=== PATIENT | male | born 1970 | race Caucasian/White ===

== ENCOUNTER → 2019-10-19 11:00 | Outpatient (BNVA) | payer OTHER, SELFPAY | PROVIDERS: Family Provider Family Medicine; PCP Family Medicine; Visit Provider Family Medicine | DX: E78.00 Pure hypercholesterolemia, unspecified (principal); E11.9 Type 2 diabetes mellitus without complications; I10 Essential (primary) hypertension; K21.0 Gastro-esophageal reflux disease with esophagitis; S69.91XA Unspecified injury of right wrist, hand and finger(s), initial encounter | CPT/HCPCS: 80053; 80061; 83036 ==

== ENCOUNTER → 2020-06-26 10:13 | Outpatient (BNVA) | payer OTHER, SELFPAY | PROVIDERS: Family Provider Family Medicine; PCP Family Medicine; Visit Provider Emergency Medicine | DX: R68.89 Other general symptoms and signs (principal); R11.0 Nausea; Z20.828 Contact with and (suspected) exposure to other viral communicable diseases | CPT/HCPCS: 87400; 87635 ==

== ENCOUNTER → 2020-06-28 15:19 | Outpatient (BNVA) | payer OTHER, SELFPAY | PROVIDERS: Family Provider Family Medicine; PCP Family Medicine; Visit Provider Emergency Medicine | DX: R68.89 Other general symptoms and signs (principal); R06.02 Shortness of breath; Z20.828 Contact with and (suspected) exposure to other viral communicable diseases; I51.7 Cardiomegaly | CPT/HCPCS: 71046; 87635 ==

== ENCOUNTER → 2020-07-09 17:56 | Outpatient (BNVA) | payer OTHER, SELFPAY | PROVIDERS: Family Provider Family Medicine; PCP Family Medicine; Visit Provider Family Medicine | DX: I10 Essential (primary) hypertension (principal); J44.9 Chronic obstructive pulmonary disease, unspecified; E11.9 Type 2 diabetes mellitus without complications; K70.9 Alcoholic liver disease, unspecified; E78.00 Pure hypercholesterolemia, unspecified | CPT/HCPCS: 80053; 80061; 83036; 85025; 86705; 86706; 86803; 87340 ==

== ENCOUNTER → 2020-07-14 15:32 | Outpatient (BNVA) | payer OTHER, SELFPAY | PROVIDERS: PCP Family Medicine; Referring Provider Family Medicine; Visit Provider Emergency Medicine | DX: E11.9 Type 2 diabetes mellitus without complications (principal) | CPT/HCPCS: 83036 ==

== ENCOUNTER 2020-07-15 15:01 | Outpatient (CLI) | payer OTHER, SELFPAY ==
--- NOTE | 2020-07-15 15:00 | USCV_ITS ---
Tonny Miller Jr Age: 49 Gender: M : 1970 Exam Date: 07/15/2020 15:32 Ordering Phys: Marques Portillo Technologist: Mireya Reyes Exam Location: [facility] – [place] Indication: CARDIOMEGALY BP: 131 / 78 HR: 110 Rhythm: Sinus Technical Quality: Adequate MEASUREMENTS (Male / Female) Normal Values 2D ECHO LV Diastolic Diameter PLAX 4.8 cm 4.2 - 5.9 / 3.9 - 5.3 cm LV Systolic Diameter PLAX 3.1 cm LV Chamber Size 2.9 cm IVS Diastolic Thickness 0.9 cm 0.6 - 1.0 / 0.6 - 0.9 cm IVS Systolic Thickness 1.5 cm LVPW Diastolic Thickness 1.6 cm 0.6 - 1.0 / 0.6 - 0.9 cm LVPW Systolic Thickness 1.8 cm RV Chamber Size 2.2 cm LVOT Diameter 2.0 cm LV Ejection Fraction 2D Teich 63.7 % LV Ejection Fraction MOD 2C 53.0 % LV Ejection Fraction 2C AL 58.7 % LA Diameter 3.6 cm LA Width 3.8 cm LA Height 3.2 cm RA Width 3.6 cm RA Height 3.7 cm Aorta at Sinotubular Diameter 4.2 cm M-MODE LV Diastolic Diameter MM 4.6 cm 4.2 - 5.9 / 3.9 - 5.3 cm LV Systolic Diameter MM 2.8 cm LV Ejection Fraction MM Teich 70.6 % IVS Diastolic Thickness MM 1.3 cm 0.6 - 1.0 / 0.6 - 0.9 cm IVS Systolic Thickness MM 1.6 cm LVPW Diastolic Thickness MM 1.2 cm 0.6 - 1.0 / 0.6 - 0.9 cm LVPW Systolic Thickness MM 1.9 cm RV Diastolic Diameter MM 1.6 cm Aortic Annulus Diameter 4.4 cm LA Ao Ratio MM 1.2 MV E Point Septal Separation 0.3 cm DOPPLER AV Peak Velocity 218.0 cm/s LVOT Peak Velocity 125.0 cm/s AV Area Cont Eq vti 2.1 cm squared AV Area Cont Eq pk 1.8 cm squared MV Area PHT 5.0 cm squared Mitral E to A Ratio 1.3 MV E' Velocity 82.0 cm/s Mitral E to MV E' Ratio 9.7 Mitral E to LV E' Lateral Ratio 9.8 Mitral E to LV E' Septal Ratio 9.6 TR Peak Velocity 194.1 cm/s TR Peak Gradient 15.1 mmHg TR Mean Velocity 140.8 cm/s TR Mean Gradient 9.9 mmHg TR Velocity Time Integral 45.8 cm TV Peak E Velocity 94.0 cm/s Right Atrial Pressure 3.0 mmHg Pulmonary Artery Systolic Pressu 18.1 mmHg PV Peak Velocity 129.7 cm/s RV Acceleration Time 0.1 s RV Ejection Time 0.3 s RV AcT/ET 0.5 FINDINGS Left Ventricle Normal left ventricular cavity size. Normal left ventricular systolic function. Left ventricular ejection fraction is estimated at 65 %. Normal diastolic function. Right Ventricle The right ventricle is normal in size and function. Right Atrium The right atrium is normal in size. Left Atrium The left atrium is normal in size. Mitral Valve Moderately thickened mitral valve. No mitral valve stenosis. Mild mitral valve regurgitation. Aortic Valve Mild aortic valve calcification. No aortic valve stenosis. No aortic valve regurgitation. Tricuspid Valve Tricuspid valve sclerosis. Mild tricuspid valve regurgitation. Pulmonic Valve Structurally normal pulmonic valve without significant stenosis. There is no pulmonic regurgitation. Pericardium Normal pericardium without effusion. Aorta Normal ascending aorta dimension. CONCLUSIONS 1-Normal left ventricular cavity size. Normal left ventricular systolic function. Left ventricular ejection fraction is estimated at 65 %. Normal diastolic function. 2-Moderately thickened mitral valve. No mitral valve stenosis. Mild mitral valve regurgitation. 3-Mild aortic valve calcification. No aortic valve stenosis. No aortic valve regurgitation. 4-Tricuspid valve sclerosis. Mild tricuspid valve regurgitation. 8-Kbpy-ttxke pleural effusion noted 6-There are no prior echocardiogram studies to compare. Yeison Cook MD (Electronically Signed) Final Date: 15 July 2020 18:31 S
== END 2020-07-15 15:02 | disposition home or self-care (01) ==
LOC: US 15:03
PROVIDERS: PCP Family Medicine; Visit Provider Emergency Medicine
DX: I08.3 Combined rheumatic disorders of mitral, aortic and tricuspid valves
CPT/HCPCS: 93306

== ENCOUNTER 2020-07-22 10:49 | Outpatient (CLI) | payer OTHER, SELFPAY ==
--- NOTE | 2020-07-22 11:00 | US_ITS ---
WS: [id number] ULTRASOUND ABDOMEN CLINICAL INFORMATION: K70.9 - Alcoholic liver disease, unspecified COMPARISON: None. FINDINGS: Very Technically limited examination. Liver Size: Enlarged Craniocaudal length: 20.5 cm. Echogenicity: Coarse Surface nodularity: None. Mass (size and location): None. Bile ducts Intrahepatic ducts: Normal. Common bile duct diameter: 0.3 cm. Gallbladder Normal. Gallstones: None. Gallbladder sludge: None. Gallbladder wall thickening: None. Pericholecystic fluid: None. Sonographic Suh sign: Absent. Pancreas Obscured by bowel gas Spleen Splenomegaly: Mild splenomegaly Craniocaudal length: 14.6 cm. Right kidney: Normal. Hydronephrosis: None. 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 Hydronephrosis: None. Size: 11.1 cm x 4.3 cm x 6.2 cm. Abdominal aorta and IVC Visualized portions are normal. Ascites: None. US/US abdomen complete* [id number] IMPRESSION: Limited technically difficult examination. 1. Hepatomegaly with diffuse fatty infiltration of the liver. 2. Splenomegaly measuring 14.5 CM. 3. No hydronephrosis in either kidney. 4. Echogenic lesion left kidney measuring 2.1 cm likely represents angiomyolip delio. Less likely this represents a nonobstructing calculus. 5. Normal gallbladder and common bile duct.
== END 2020-07-22 10:50 | disposition home or self-care (01) ==
PROVIDERS: PCP Family Medicine; Visit Provider Family Medicine
DX: K70.9 Alcoholic liver disease, unspecified (principal); K70.0 Alcoholic fatty liver; R16.2 Hepatomegaly with splenomegaly, not elsewhere classified; N28.9 Disorder of kidney and ureter, unspecified
CPT/HCPCS: 76700

== ENCOUNTER 2020-07-27 15:45 | Inpatient (IN) | payer OTHER, SELFPAY ==
[2020-07-27] VITALS (14 sets, daily range): BP systolic 106–120; BP diastolic 58–76; PULSE 90–111; RESP 17–26; TEMP 36.8–37.6; O2SAT 96–100; BMI 33.2
--- NOTE | 2020-07-27 16:08 | XRR_ITS ---
PROCEDURE INFORMATION: Exam: XR Abdomen, 1 View Exam date and time: 07/27/2020 4:44 PM Age: 49 years old Clinical indication: Abdominal pain; Prior surgery; Surgery type: Hernia TECHNIQUE: Imaging protocol: XR of the abdomen. Views: Frontal supine view of the abdomen. 1 View. COMPARISON: US abdomen complete* [id number] 07/22/2020 11:02 AM FINDINGS: Gastrointestinal tract: Suspected mucosal thickening of small bowel loops. No convincing evidence of bowel obstruction or perforation. Intraperitoneal space: Ascites suspected. Bones/joints: Mild diffuse spondyloarthropathy of spine. XR/XR KUB portable [id number] IMPRESSION: 1. Ascites. 2. Nonspecific mucosal fold thickening of small bowel loops.
--- NOTE | 2020-07-27 16:10 | ECG_ITS ---
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 Measurements Intervals [place] Rate: 97 P: 39 ND: 156 QRS: 0 QRSD: 98 T: -8 QT: 374 QTc: 477 Interpretive Statements SINUS RHYTHM NONSPECIFIC ST & T-WAVE ABNORMALITY No previous ECG available for comparison Electronically Signed On 07-27-2020 19:26:46 MANAGER WEB by Elsie Lloyd M.D. [id number]
--- NOTE | 2020-07-27 16:11 | W.ED.GENADLT ---
Documented by User: Mendoza Vinson MD 07/27/20 17:49 HPI - General Adult General: Chief complaint: General Medical Stated complaint: REALLY LOW BP, R SIDE ACHES/PAINS Time Seen by Provider: 07/27/20 16:04 Source: patient, family, RN notes reviewed and old records reviewed Mode of arrival: ambulatory Limitations: no limitations History of Present Illness: HPI narrative: This patient is a 49-year-old male presents to the emergency department with complaint of right upper quadrant abdominal pain. Been ongoing issue from time to time has recently had an evaluation by cardiology approximately 7 days ago had echocardiogram outpatient was negative for any acute findings. Patient also had a abdominal ultrasound that was negative for any acute findings. Other than fatty liver disease. Patient has a known history of liver disease related to alcohol chronically. Patient states he drinks a pint of fireball every couple of days. But this is cut way down from his previous alcohol consumption. Patient does appear to be slightly jaundiced and this also is consistent with his history. Patient's complaint of right upper quadrant abdominal pain appears to be chronic. Patient does have a ventral abdominal hernia that is chronic also. Will do medical evaluation treat as needed. Onset (ago): day(s) Severity: moderate Quality: aching Pain Consistency: constant Relieving factors: none Exacerbating factors: none Associated symptoms: Deny chest pain, dyspnea, malaise, nausea, rash, palpitations or vomiting Review of Systems General: Reports: 10 or more systems reviewed and unremarkable except in HPI and below Const: Denies: fever(s), chills, body aches, change in appetite, change in weight, fatigue or malaise Eyes: Denies: change in vision or blurry vision ENMT: Denies: throat pain, uvular edema or enlarged tonsils Card: Denies: chest pain, palpitations, irregular heart rhythm, swelling of feet/ankles or lightheadedness Resp: Denies: dyspnea, productive cough, non-productive cough, wheezing, stridor or pain on inspiration GI: Reports: abdominal pain; Denies: nausea, vomiting, hematemesis, coffee ground emesis, dysphagia or diarrhea : Denies: flank pain, difficulty urinating or dysuria Skin/Breast: Denies: rash PFSH ED PFSH: Medical History Cardiomegaly GERD (gastroesophageal reflux disease) History of alcoholism Hypercholesteremia Hypertension Type 2 diabetes mellitus Social History Smoking and tobacco status: current every day smoker smokeless tobacco Smokeless tobacco user: chewing tobacco Smokeless tobacco details: 0.25 CAN PER DAY Quit status (tobacco): not considering quitting Second hand smoke exposure: No Alcohol intake: current Alcohol intake frequency: 0-2 Drinks per Day History of recent travel: No Current gender identity: Male Physical Exam Narrative: EXAM NARRATIVE: Patient has known liver disease presents with abdominal pain but does have chronic abdominal pain and GERD. Patient states he drinks fireball daily. Patient has recently had abdominal ultrasound and an echocardiogram both showed no acute findings other than his liver disease issues. Patient appears to be slightly jaundiced this is also chronic and noted in his medical records. Const: COMMON NORMALS: no acute distress, no limitations, healthy appearing, alert and well nourished HENMT: COMMON NORMALS: normocephalic, atraumatic, hearing grossly normal bilaterally and external ears normal HEAD & SCALP: normocephalic and atraumatic EXTERNAL EAR: Yes external ears normal THROAT: no uvular edema Eye: SCLERA: scleral abnormal (Slightly icteric.) Laterality of scleral abnormality: positive bilateral Neck/C-Spine: COMMON NORMALS: no JVD Chest: COMMONS NORMALS: normal inspection of the chest, normal palpation of entire chest wall, normal inspection of the breasts and normal palpation of the breasts Breast/axilla inspection: Yes normal inspection of the breasts BREAST/AXILLA PALPATION: Yes normal palpation of the breasts Resp: COMMON NORMALS: normal respiratory effort, No retractions, No use of accessory muscles and clear to auscultation bilaterally AUSCULTATION: clear to auscultation bilaterally Cardio: COMMON NORMALS: no JVD, regular rate and regular rhythm RATE: regular rate RHYTHM: regular rhythm GI: COMMON NORMALS: Soft to palpation INSPECTION: Yes central obesity and Yes visible herniation PALPATION: Yes Soft to palpation, Yes Tenderness to palpation present (GI) (Mildly tender right upper quadrant) Details: RUQ and Yes Hepatomegaly present PERCUSSION: normal to percussion Neuro: SENSORIUM/ORIENTATION: Yes alert Course ED course: Patient presented to the emergency department with complaint of right upper quadrant pain. Had recent cardiac echocardiogram negative for acute findings and gallbladder ultrasound negative for any acute findings other than his chronic liver issues. Medical screening exam was performed showed the patient has hemoglobin of 4.5 and hematocrit of 16.7. Patient is described weakness. Patient states he has some dark stools over the past week but has had no dark stools in the past couple days patient does have light jaundice but this is chronic for the patient due to his chronic liver disease related to alcoholism patient does drink alcohol daily and has for a long time. Reevaluation(s): Reevaluation #1: Patient appears to back have anemia due to blood loss. Concerning for lower GI bleed. Patient will need blood transfusion due to H&H of 4.5 and 16.7. Patient is agreeable for admission. Time: 17:44 Consultations: Consultation #1: I did discuss at length with Dr. Arnold we discussed the patient's chart. She will see patient around initial orders Time: 17:44 Vital Signs: Vital signs: Vital Signs Temperature 99.5 F 07/27/20 19:30 Pulse Rate 93 07/27/20 19:30 Respiratory Rate 23 H 07/27/20 19:30 Blood Pressure 110/65 07/27/20 19:30 Pulse Oximetry 96 07/27/20 19:30 MDM - General Adult Medical Records: Attestation: I reviewed the patient's medical records. Lab Data: Attestation: I reviewed the patient's lab results. Labs: Lab Results 07/27/20 07/27/20 07/27/20 Range/Units 16:20 16:20 16:20 WBC 5.7 (4.0-10.0) 10^3/ uL RBC 2.24 L (4.1-5.3) 10^6/u L Hgb 4.5 L* (11.7-16.6) g/dL Hct 16.7 L* (42.0-52.0) % MCV 74.6 L (80-94) fL MCH 20.1 L (28.0-34.0) pg MCHC 26.9 L (30.0-36.0) g/dL RDW 22.5 H (12.1-15.1) % Plt Count 314 (130-400) 10^3/c mm MPV 10.8 H (7.4-10.4) fL Neut % (Auto) 68.0 % Lymph % (Auto) 21.0 % [place] % (Auto) 8.9 % Eos % (Auto) 1.2 % Baso % (Auto) 0.5 % Neut # (Auto) 3.88 (1.8-7.7) 10^3/u L Lymph # (Auto) 1.2 (0.8-4.8) 10^3/u L [place] # (Auto) 0.5 (0.2-0.9) 10^3/u L Eos # (Auto) 0.1 (0.0-0.8) 10^3/u L Baso # (Auto) 0.0 (0.0-0.1) 10^3/u L Nucleated RBC % (a uto) 0 % Nucleated RBCs # 0.0 /100WBC PT 18.50 H (12.1-14.9) SECO NDS INR 1.49 H (0.8-1.2) APTT 37.0 H (23.9-36.7) SECO NDS Sodium 136 (136-145) mmol/L Potassium 2.4 L* (3.5-5.1) mmol/L Chloride 95 L (98-107) mmol/L Carbon Dioxide 31 H (22-29) mmol/L Anion Gap 12.4 (5-19) BUN 11 (6-20) mg/dL Creatinine 0.8 (0.7-1.2) mg/dL GFR Calculation 102.7 (90-130) mL/min Glucose 158 H (65-115) mg/dL Calculated Osmolal ity 285 (285-295) mOsm/k g Calcium 7.8 L (8.5-10.5) mg/dL Magnesium 1.9 (1.7-2.3) mg/dL Total Bilirubin 1.5 H (0.15-1.2) mg/dL AST 44 H (0-40) U/L ALT 27 (0-41) U/L Alkaline Phosphata se 308 H (40-130) IU/L Troponin T Gen 5 n g/L (0-15) ng/L C-Reactive Protein 22.7 H (0.0-4.9) mg/L Total Protein 6.0 L (6.6-8.7) g/dL Albumin 3.4 L (3.5-5.2) g/dL Globulin 2.6 (1.3-4.6) g/dL Lipase 70 H (13-60) U/L Urine Color (Yellow) Urine Appearance (CLEAR) Urine pH (5-7) Ur Specific Gravit y (1.005-1.030) Urine Protein (Negative) Urine Glucose (UA) (Normal) Urine Ketones (Negative) Urine Blood (Negative) Urine Nitrate (Negative) Urine Bilirubin (Negative) Urine Urobilinogen (Negative) mg/dL Ur Leukocyte Yashira ase (Negative) Salicylates < 0.3 L (3-10) mg/dL Urine Opiates Scre en (Negative) ng/mL Acetaminophen < 5.0 L (10-30) ug/mL Ur Barbiturates Sc reen (Negative) ng/mL Ur Phencyclidine S crn (Negative) ng/mL Ur Amphetamines Sc reen (Negative) ng/mL U Benzodiazepines Scrn (Negative) ng/mL Urine Cocaine Scre en (Negative) ng/mL U Marijuana (THC) Screen (Negative) ng/mL Ethyl Alcohol < 10 (0-10) mg/dL Blood Type Rho(D) Type Antibody Screen Crossmatch 07/27/20 07/27/20 07/27/20 Range/Units 16:20 16:20 16:20 WBC (4.0-10.0) 10^3/ uL RBC (4.1-5.3) 10^6/u L Hgb (11.7-16.6) g/dL Hct (42.0-52.0) % MCV (80-94) fL MCH (28.0-34.0) pg MCHC (30.0-36.0) g/dL RDW (12.1-15.1) % Plt Count (130-400) 10^3/c mm MPV (7.4-10.4) fL Neut % (Auto) % Lymph % (Auto) % [place] % (Auto) % Eos % (Auto) % Baso % (Auto) % Neut # (Auto) (1.8-7.7) 10^3/u L Lymph # (Auto) (0.8-4.8) 10^3/u L [place] # (Auto) (0.2-0.9) 10^3/u L Eos # (Auto) (0.0-0.8) 10^3/u L Baso # (Auto) (0.0-0.1) 10^3/u L Nucleated RBC % (a uto) % Nucleated RBCs # /100WBC PT (12.1-14.9) SECO NDS INR (0.8-1.2) APTT (23.9-36.7) SECO NDS Sodium (136-145) mmol/L Potassium (3.5-5.1) mmol/L Chloride (98-107) mmol/L Carbon Dioxide (22-29) mmol/L Anion Gap (5-19) BUN (6-20) mg/dL Creatinine (0.7-1.2) mg/dL GFR Calculation (90-130) mL/min Glucose (65-115) mg/dL Calculated Osmolal ity (285-295) mOsm/k g Calcium (8.5-10.5) mg/dL Magnesium (1.7-2.3) mg/dL Total Bilirubin (0.15-1.2) mg/dL AST (0-40) U/L ALT (0-41) U/L Alkaline Phosphata se (40-130) IU/L Troponin T Gen 5 n g/L 12 (0-15) ng/L C-Reactive Protein (0.0-4.9) mg/L Total Protein (6.6-8.7) g/dL Albumin (3.5-5.2) g/dL Globulin (1.3-4.6) g/dL Lipase (13-60) U/L Urine Color Yellow (Yellow) Urine Appearance Clear (CLEAR) Urine pH 6 (5-7) Ur Specific Gravit y 1.010 (1.005-1.030) Urine Protein Neg (Negative) Urine Glucose (UA) Norm (Normal) Urine Ketones Negative (Negative) Urine Blood Neg (Negative) Urine Nitrate Negative (Negative) Urine Bilirubin 1+ H (Negative) Urine Urobilinogen 1 H (Negative) mg/dL Ur Leukocyte Yashira ase Negative (Negative) Salicylates (3-10) mg/dL Urine Opiates Scre en Negative (Negative) ng/mL Acetaminophen (10-30) ug/mL Ur Barbiturates Sc reen Negative (Negative) ng/mL Ur Phencyclidine S crn Negative (Negative) ng/mL Ur Amphetamines Sc reen Negative (Negative) ng/mL U Benzodiazepines Scrn Negative (Negative) ng/mL Urine Cocaine Scre en Negative (Negative) ng/mL U Marijuana (THC) Screen Negative (Negative) ng/mL Ethyl Alcohol (0-10) mg/dL Blood Type Rho(D) Type Antibody Screen Crossmatch 07/27/20 Range/Units 17:45 WBC (4.0-10.0) 10^3/ uL RBC (4.1-5.3) 10^6/u L Hgb (11.7-16.6) g/dL Hct (42.0-52.0) % MCV (80-94) fL MCH (28.0-34.0) pg MCHC (30.0-36.0) g/dL RDW (12.1-15.1) % Plt Count (130-400) 10^3/c mm MPV (7.4-10.4) fL Neut % (Auto) % Lymph % (Auto) % [place] % (Auto) % Eos % (Auto) % Baso % (Auto) % Neut # (Auto) (1.8-7.7) 10^3/u L Lymph # (Auto) (0.8-4.8) 10^3/u L [place] # (Auto) (0.2-0.9) 10^3/u L Eos # (Auto) (0.0-0.8) 10^3/u L Baso # (Auto) (0.0-0.1) 10^3/u L Nucleated RBC % (a uto) % Nucleated RBCs # /100WBC PT (12.1-14.9) SECO NDS INR (0.8-1.2) APTT (23.9-36.7) SECO NDS Sodium (136-145) mmol/L Potassium (3.5-5.1) mmol/L Chloride (98-107) mmol/L Carbon Dioxide (22-29) mmol/L Anion Gap (5-19) BUN (6-20) mg/dL Creatinine (0.7-1.2) mg/dL GFR Calculation (90-130) mL/min Glucose (65-115) mg/dL Calculated Osmolal ity (285-295) mOsm/k g Calcium (8.5-10.5) mg/dL Magnesium (1.7-2.3) mg/dL Total Bilirubin (0.15-1.2) mg/dL AST (0-40) U/L ALT (0-41) U/L Alkaline Phosphata se (40-130) IU/L Troponin T Gen 5 n g/L (0-15) ng/L C-Reactive Protein (0.0-4.9) mg/L Total Protein (6.6-8.7) g/dL Albumin (3.5-5.2) g/dL Globulin (1.3-4.6) g/dL Lipase (13-60) U/L Urine Color (Yellow) Urine Appearance (CLEAR) Urine pH (5-7) Ur Specific Gravit y (1.005-1.030) Urine Protein (Negative) Urine Glucose (UA) (Normal) Urine Ketones (Negative) Urine Blood (Negative) Urine Nitrate (Negative) Urine Bilirubin (Negative) Urine Urobilinogen (Negative) mg/dL Ur Leukocyte Yashira ase (Negative) Salicylates (3-10) mg/dL Urine Opiates Scre en (Negative) ng/mL Acetaminophen (10-30) ug/mL Ur Barbiturates Sc reen (Negative) ng/mL Ur Phencyclidine S crn (Negative) ng/mL Ur Amphetamines Sc reen (Negative) ng/mL U Benzodiazepines Scrn (Negative) ng/mL Urine Cocaine Scre en (Negative) ng/mL U Marijuana (THC) Screen (Negative) ng/mL Ethyl Alcohol (0-10) mg/dL Blood Type O Positive Rho(D) Type Positive Antibody Screen Negative Crossmatch See Detail EKG Data^: EKG 1: Attestation: I personally reviewed and interpreted this EKG as follows: EKG interpretation date: 07/27/20 EKG interpretation time: 17:07 Prior EKG tracings: available for review Interpretation: Sinus rhythm nonspecific ST changes otherwise normal EKG Computer generated interpretation: KUB X-Ray 07/27/20 16:08 IMPRESSION: 1. Ascites. 2. Nonspecific mucosal fold thickening of small bowel loops. Abdomen/Pelvis CT 07/27/20 18:04 IMPRESSION: 1. Sequela of liver cirrhosis which includes moderate ascites volume. 2. Bowel wall thickening changes are noted and nonspecific, most likely related to underlying fluid overload status. Radiation Dose CTDIVOL = (mGy): DLP = 1592.18 (mGy-cm) Discharge Plan Discharge Patient Disposition: Admitted As Inpatient Admit Provider: Rigoberto Basurto Clinical Impression: Acute GI bleeding, Anemia due to acute blood loss, Chronic alcoholic liver disease, Acute hypokalemia, Alcoholism, chronic Condition: Stable Coding Level of Care Code ED Design/Animation Instructor for Chg Fwd Exam Comprehensive Documented by User: Yudelka Castrejon MD 07/27/20 19:52 HPI - General Adult General: Chief complaint: General Medical Stated complaint: REALLY LOW BP, R SIDE ACHES/PAINS Time Seen by Provider: 07/27/20 16:04 PFS ED PFSH: Medical History Cardiomegaly GERD (gastroesophageal reflux disease) History of alcoholism Hypercholesteremia Hypertension Type 2 diabetes mellitus Social History Smoking and tobacco status: current every day smoker smokeless tobacco Smokeless tobacco user: chewing tobacco Smokeless tobacco details: 0.25 CAN PER DAY Quit status (tobacco): not considering quitting Second hand smoke exposure: No Alcohol intake: current Alcohol intake frequency: 0-2 Drinks per Day History of recent travel: No Current gender identity: Male Course Vital Signs: Vital signs: Vital Signs Temperature 99.5 F 07/27/20 19:30 Pulse Rate 93 07/27/20 19:30 Respiratory Rate 23 H 07/27/20 19:30 Blood Pressure 110/65 07/27/20 19:30 Pulse Oximetry 96 07/27/20 19:30 MDM - General Adult MDM Narrative: Medical decision making narrative: Patient presents with anemia along with ascites likely from cirrhosis from his alcoholism. He has no signs of any active bleeding I believe he is got anemic over period of time. Patient's blood work here shows that he is hypokalemic as well. Patient's blood pressures been stable. Will admit and transfuse. I spoke to hospitalist. Lab Data: Labs: Lab Results 07/27/20 07/27/20 07/27/20 Range/Units 16:20 16:20 16:20 WBC 5.7 (4.0-10.0) 10^3/ uL RBC 2.24 L (4.1-5.3) 10^6/u L Hgb 4.5 L* (11.7-16.6) g/dL Hct 16.7 L* (42.0-52.0) % MCV 74.6 L (80-94) fL MCH 20.1 L (28.0-34.0) pg MCHC 26.9 L (30.0-36.0) g/dL RDW 22.5 H (12.1-15.1) % Plt Count 314 (130-400) 10^3/c mm MPV 10.8 H (7.4-10.4) fL Neut % (Auto) 68.0 % Lymph % (Auto) 21.0 % [place] % (Auto) 8.9 % Eos % (Auto) 1.2 % Baso % (Auto) 0.5 % Neut # (Auto) 3.88 (1.8-7.7) 10^3/u L Lymph # (Auto) 1.2 (0.8-4.8) 10^3/u L [place] # (Auto) 0.5 (0.2-0.9) 10^3/u L Eos # (Auto) 0.1 (0.0-0.8) 10^3/u L Baso # (Auto) 0.0 (0.0-0.1) 10^3/u L Nucleated RBC % (a uto) 0 % Nucleated RBCs # 0.0 /100WBC PT 18.50 H (12.1-14.9) SECO NDS INR 1.49 H (0.8-1.2) APTT 37.0 H (23.9-36.7) SECO NDS Sodium 136 (136-145) mmol/L Potassium 2.4 L* (3.5-5.1) mmol/L Chloride 95 L (98-107) mmol/L Carbon Dioxide 31 H (22-29) mmol/L Anion Gap 12.4 (5-19) BUN 11 (6-20) mg/dL Creatinine 0.8 (0.7-1.2) mg/dL GFR Calculation 102.7 (90-130) mL/min Glucose 158 H (65-115) mg/dL Calculated Osmolal ity 285 (285-295) mOsm/k g Calcium 7.8 L (8.5-10.5) mg/dL Magnesium 1.9 (1.7-2.3) mg/dL Total Bilirubin 1.5 H (0.15-1.2) mg/dL AST 44 H (0-40) U/L ALT 27 (0-41) U/L Alkaline Phosphata se 308 H (40-130) IU/L Troponin T Gen 5 n g/L (0-15) ng/L C-Reactive Protein 22.7 H (0.0-4.9) mg/L Total Protein 6.0 L (6.6-8.7) g/dL Albumin 3.4 L (3.5-5.2) g/dL Globulin 2.6 (1.3-4.6) g/dL Lipase 70 H (13-60) U/L Urine Color (Yellow) Urine Appearance (CLEAR) Urine pH (5-7) Ur Specific Gravit y (1.005-1.030) Urine Protein (Negative) Urine Glucose (UA) (Normal) Urine Ketones (Negative) Urine Blood (Negative) Urine Nitrate (Negative) Urine Bilirubin (Negative) Urine Urobilinogen (Negative) mg/dL Ur Leukocyte Yashira ase (Negative) Salicylates < 0.3 L (3-10) mg/dL Urine Opiates Scre en (Negative) ng/mL Acetaminophen < 5.0 L (10-30) ug/mL Ur Barbiturates Sc reen (Negative) ng/mL Ur Phencyclidine S crn (Negative) ng/mL Ur Amphetamines Sc reen (Negative) ng/mL U Benzodiazepines Scrn (Negative) ng/mL Urine Cocaine Scre en (Negative) ng/mL U Marijuana (THC) Screen (Negative) ng/mL Ethyl Alcohol < 10 (0-10) mg/dL Blood Type Rho(D) Type Antibody Screen Crossmatch 07/27/20 07/27/20 07/27/20 Range/Units 16:20 16:20 16:20 WBC (4.0-10.0) 10^3/ uL RBC (4.1-5.3) 10^6/u L Hgb (11.7-16.6) g/dL Hct (42.0-52.0) % MCV (80-94) fL MCH (28.0-34.0) pg MCHC (30.0-36.0) g/dL RDW (12.1-15.1) % Plt Count (130-400) 10^3/c mm MPV (7.4-10.4) fL Neut % (Auto) % Lymph % (Auto) % [place] % (Auto) % Eos % (Auto) % Baso % (Auto) % Neut # (Auto) (1.8-7.7) 10^3/u L Lymph # (Auto) (0.8-4.8) 10^3/u L [place] # (Auto) (0.2-0.9) 10^3/u L Eos # (Auto) (0.0-0.8) 10^3/u L Baso # (Auto) (0.0-0.1) 10^3/u L Nucleated RBC % (a uto) % Nucleated RBCs # /100WBC PT (12.1-14.9) SECO NDS INR (0.8-1.2) APTT (23.9-36.7) SECO NDS Sodium (136-145) mmol/L Potassium (3.5-5.1) mmol/L Chloride (98-107) mmol/L Carbon Dioxide (22-29) mmol/L Anion Gap (5-19) BUN (6-20) mg/dL Creatinine (0.7-1.2) mg/dL GFR Calculation (90-130) mL/min Glucose (65-115) mg/dL Calculated Osmolal ity (285-295) mOsm/k g Calcium (8.5-10.5) mg/dL Magnesium (1.7-2.3) mg/dL Total Bilirubin (0.15-1.2) mg/dL AST (0-40) U/L ALT (0-41) U/L Alkaline Phosphata se (40-130) IU/L Troponin T Gen 5 n g/L 12 (0-15) ng/L C-Reactive Protein (0.0-4.9) mg/L Total Protein (6.6-8.7) g/dL Albumin (3.5-5.2) g/dL Globulin (1.3-4.6) g/dL Lipase (13-60) U/L Urine Color Yellow (Yellow) Urine Appearance Clear (CLEAR) Urine pH 6 (5-7) Ur Specific Gravit y 1.010 (1.005-1.030) Urine Protein Neg (Negative) Urine Glucose (UA) Norm (Normal) Urine Ketones Negative (Negative) Urine Blood Neg (Negative) Urine Nitrate Negative (Negative) Urine Bilirubin 1+ H (Negative) Urine Urobilinogen 1 H (Negative) mg/dL Ur Leukocyte Yashira ase Negative (Negative) Salicylates (3-10) mg/dL Urine Opiates Scre en Negative (Negative) ng/mL Acetaminophen (10-30) ug/mL Ur Barbiturates Sc reen Negative (Negative) ng/mL Ur Phencyclidine S crn Negative (Negative) ng/mL Ur Amphetamines Sc reen Negative (Negative) ng/mL U Benzodiazepines Scrn Negative (Negative) ng/mL Urine Cocaine Scre en Negative (Negative) ng/mL U Marijuana (THC) Screen Negative (Negative) ng/mL Ethyl Alcohol (0-10) mg/dL Blood Type Rho(D) Type Antibody Screen Crossmatch 07/27/20 Range/Units 17:45 WBC (4.0-10.0) 10^3/ uL RBC (4.1-5.3) 10^6/u L Hgb (11.7-16.6) g/dL Hct (42.0-52.0) % MCV (80-94) fL MCH (28.0-34.0) pg MCHC (30.0-36.0) g/dL RDW (12.1-15.1) % Plt Count (130-400) 10^3/c mm MPV (7.4-10.4) fL Neut % (Auto) % Lymph % (Auto) % [place] % (Auto) % Eos % (Auto) % Baso % (Auto) % Neut # (Auto) (1.8-7.7) 10^3/u L Lymph # (Auto) (0.8-4.8) 10^3/u L [place] # (Auto) (0.2-0.9) 10^3/u L Eos # (Auto) (0.0-0.8) 10^3/u L Baso # (Auto) (0.0-0.1) 10^3/u L Nucleated RBC % (a uto) % Nucleated RBCs # /100WBC PT (12.1-14.9) SECO NDS INR (0.8-1.2) APTT (23.9-36.7) SECO NDS Sodium (136-145) mmol/L Potassium (3.5-5.1) mmol/L Chloride (98-107) mmol/L Carbon Dioxide (22-29) mmol/L Anion Gap (5-19) BUN (6-20) mg/dL Creatinine (0.7-1.2) mg/dL GFR Calculation (90-130) mL/min Glucose (65-115) mg/dL Calculated Osmolal ity (285-295) mOsm/k g Calcium (8.5-10.5) mg/dL Magnesium (1.7-2.3) mg/dL Total Bilirubin (0.15-1.2) mg/dL AST (0-40) U/L ALT (0-41) U/L Alkaline Phosphata se (40-130) IU/L Troponin T Gen 5 n g/L (0-15) ng/L C-Reactive Protein (0.0-4.9) mg/L Total Protein (6.6-8.7) g/dL Albumin (3.5-5.2) g/dL Globulin (1.3-4.6) g/dL Lipase (13-60) U/L Urine Color (Yellow) Urine Appearance (CLEAR) Urine pH (5-7) Ur Specific Gravit y (1.005-1.030) Urine Protein (Negative) Urine Glucose (UA) (Normal) Urine Ketones (Negative) Urine Blood (Negative) Urine Nitrate (Negative) Urine Bilirubin (Negative) Urine Urobilinogen (Negative) mg/dL Ur Leukocyte Yashira ase (Negative) Salicylates (3-10) mg/dL Urine Opiates Scre en (Negative) ng/mL Acetaminophen (10-30) ug/mL Ur Barbiturates Sc reen (Negative) ng/mL Ur Phencyclidine S crn (Negative) ng/mL Ur Amphetamines Sc reen (Negative) ng/mL U Benzodiazepines Scrn (Negative) ng/mL Urine Cocaine Scre en (Negative) ng/mL U Marijuana (THC) Screen (Negative) ng/mL Ethyl Alcohol (0-10) mg/dL Blood Type O Positive Rho(D) Type Positive Antibody Screen Negative Crossmatch See Detail Imaging Data^: CT Abd/Pel: Attestation: I personally reviewed and interpreted this imaging study as follows: Radiologist's impression: [email or web address] [address] [address] Scan Report Signed Patient: Tonny Miller Jr Unit #: [id number] : 1970 Age/Sex: 49 / M ADM Date: 07/27/20 Loc: ER Room/Bed: Attending Dr: Ordering Provider/Ordering MD: Yudelka Castrejon MD Date of Service: 07/27/20 Procedure(s): CT abdomen pelvis w con* [id number] Accession Number(s): [id number] Report Number: [id number] PROCEDURE INFORMATION: Exam: CT Abdomen And Pelvis With Contrast Exam date and time: 07/27/2020 6:38 PM Age: 49 years old Clinical indication: Abdominal pain; Localized; Right upper quadrant (ruq); Prior surgery; Surgery date: 6+ months; Surgery type: Hernia; Patient HX: C/O ruq abd pain w HX of liver disease TECHNIQUE: Imaging protocol: Computed tomography of the abdomen and pelvis with contrast. Radiation optimization: All CT scans at this facility use at least one of these dose optimization techniques: automated exposure control; mA and/or kV adjustment per patient size (includes targeted exams where dose is matched to clinical indication); or iterative reconstruction. Contrast material: OMNI 300; Contrast volume: 95 ml; Contrast route: INTRAVENOUS (IV); COMPARISON: US abdomen complete* [id number] 07/22/2020 11:02 AM RADIATION DOSE METRICS: Total DLP (mGy-cm): 1592.18 FINDINGS: Liver: Capsular surface of the liver mildly nodular. No focal liver mass. Gallbladder and bile ducts: Normal. No calcified stones. No ductal dilation. Pancreas: Normal. No ductal dilation. Spleen: Normal. No splenomegaly. Adrenal glands: Normal. No mass. Kidneys and ureters: Horseshoe kidney. No hydronephrosis. No suspicious renal mass. Renal parenchymal enhancement is unremarkable. Stomach and bowel: Mild diffuse thickening of the small bowel flores is nonspecific. Mild diverticulosis coli. Bowel loops are decompressed without obstruction. Mild wall thickening of the proximal right colon. Appendix: Appendix is unremarkable. Intraperitoneal space: Moderate ascites. No extraluminal air to suggest bowel perforation. Vasculature: Unremarkable. No abdominal aortic aneurysm. Lymph nodes: Unremarkable. No enlarged lymph nodes. Urinary bladder: Unremarkable as visualized. Reproductive: Unremarkable as visualized. Bones/joints: Unremarkable. No acute fracture. Soft tissues: No peripherally enhancing loculated abdominopelvic fluid collection. Scattered varices in the abdominal wall. CT/CT abdomen pelvis w con* [id number] IMPRESSION: 1. Sequela of liver cirrhosis which includes moderate ascites volume. 2. Bowel wall thickening changes are noted and nonspecific, most likely related to underlying fluid overload status. EKG Data^: EKG 1: Computer generated interpretation: KUB X-Ray 07/27/20 16:08 IMPRESSION: 1. Ascites. 2. Nonspecific mucosal fold thickening of small bowel loops. Abdomen/Pelvis CT 07/27/20 18:04 IMPRESSION: 1. Sequela of liver cirrhosis which includes moderate ascites volume. 2. Bowel wall thickening changes are noted and nonspecific, most likely related to underlying fluid overload status. Radiation Dose CTDIVOL = (mGy): DLP = 1592.18 (mGy-cm) Critical Care Time Critical Care Time: Critical Care Time: Yes Total Critical Care Time: 35 Attestation: This case had a high probability of a clinically significant, sudden, or life threatening deterioration of this patient's condition which required my full and direct attention, intervention and personal management. Discharge Plan Discharge Patient Disposition: Admitted As Inpatient Admit Provider: Rigoberto Basurto Clinical Impression: Acute GI bleeding, Anemia due to acute blood loss, Chronic alcoholic liver disease, Acute hypokalemia, Alcoholism, chronic Condition: Stable Coding Level of Care Code ED Design/Animation Instructor for Chg Fwd Exam Comprehensive
[2020-07-27] MEDS: sodium chloride 0.9% 500 ML IV (16:57)
[2020-07-27] MEDS: ondansetron 2 mg/ML SDV 2 mL 4 MG IVP (16:59)
[2020-07-27 17:01] LABS: INR 1.49 (0.8-1.2)
[2020-07-27 17:15] LABS: Alanine Aminotransferase 27 U/L (0-41); Albumin Level 3.4 g/dL (3.5-5.2); Alkaline Phosphatase 308 IU/L (40-130); Anion Gap 12.4 (5-19); Aspartate Amino Transferase 44 U/L (0-40); Blood Urea Nitrogen 11 mg/dL (6-20); C Reactive Protein 22.7 mg/L (0.0-4.9); Calcium 7.8 mg/dL (8.5-10.5); Carbon Dioxide 31 mmol/L (22-29); Chloride 95 mmol/L (98-107); Globulin 2.6 g/dL (1.3-4.6); Glomerular Filtration Rate 102.7 mL/min (90-130); Glucose 158 mg/dL (65-115); Lipase 70 U/L (13-60); Magnesium 1.9 mg/dL (1.7-2.3); Osmolality Calculated 285 mOsm/kg (285-295); Sodium 136 mmol/L (136-145); Total Bilirubin 1.5 mg/dL (0.15-1.2)
[2020-07-27 17:16] LABS: Troponin T (5th) Once 12 ng/L (0-15)
[2020-07-27 17:18] LABS: Acetaminophen < 5.0 ug/mL (10-30); Alcohol Level < 10 mg/dL (0-10); Potassium 2.4 mmol/L (3.5-5.1); Salicylate < 0.3 mg/dL (3-10)
[2020-07-27 17:23] LABS: Basophils % 0.5 %; Eosinophils # 0.1 10^3/uL (0.0-0.8); Eosinophils % 1.2 %; Lymphocytes # 1.2 10^3/uL (0.8-4.8); Mean Corpuscular HGB Conc 26.9 g/dL (30.0-36.0); Mean Corpuscular Hemoglobin 20.1 pg (28.0-34.0); Mean Corpuscular Volume 74.6 fL (80-94); Mean Platelet Volume 10.8 fL (7.4-10.4); Monocytes # 0.5 10^3/uL (0.2-0.9); Monocytes % 8.9 %; Neutrophils # 3.88 10^3/uL (1.8-7.7); Nucleated Red Blood Cells % 0 %; Platelet Count 314 10^3/cmm (130-400); Red Blood Count 2.24 10^6/uL (4.1-5.3); Red Cell Distribution Width 22.5 % (12.1-15.1); White Blood Count 5.7 10^3/uL (4.0-10.0)
[2020-07-27 17:27] LABS: Hematocrit 16.7 % (42.0-52.0); Hemoglobin 4.5 g/dL (11.7-16.6)
[2020-07-27] MEDS: potassium chloride ER 20 mEq Tablet 40 MEQ PO (17:39)
[2020-07-27 18:02] LABS: Add Urine Microscopic? NO
--- NOTE | 2020-07-27 18:04 | CTR_ITS ---
PROCEDURE INFORMATION: Exam: CT Abdomen And Pelvis With Contrast Exam date and time: 07/27/2020 6:38 PM Age: 49 years old Clinical indication: Abdominal pain; Localized; Right upper quadrant (ruq); Prior surgery; Surgery date: 6+ months; Surgery type: Hernia; Patient HX: C/O ruq abd pain w HX of liver disease TECHNIQUE: Imaging protocol: Computed tomography of the abdomen and pelvis with contrast. Radiation optimization: All CT scans at this facility use at least one of these dose optimization techniques: automated exposure control; mA and/or kV adjustment per patient size (includes targeted exams where dose is matched to clinical indication); or iterative reconstruction. Contrast material: OMNI 300; Contrast volume: 95 ml; Contrast route: INTRAVENOUS (IV); COMPARISON: US abdomen complete* [id number] 07/22/2020 11:02 AM RADIATION DOSE METRICS: Total DLP (mGy-cm): 1592.18 FINDINGS: Liver: Capsular surface of the liver mildly nodular. No focal liver mass. Gallbladder and bile ducts: Normal. No calcified stones. No ductal dilation. Pancreas: Normal. No ductal dilation. Spleen: Normal. No splenomegaly. Adrenal glands: Normal. No mass. Kidneys and ureters: Horseshoe kidney. No hydronephrosis. No suspicious renal mass. Renal parenchymal enhancement is unremarkable. Stomach and bowel: Mild diffuse thickening of the small bowel flores is nonspecific. Mild diverticulosis coli. Bowel loops are decompressed without obstruction. Mild wall thickening of the proximal right colon. Appendix: Appendix is unremarkable. Intraperitoneal space: Moderate ascites. No extraluminal air to suggest bowel perforation. Vasculature: Unremarkable. No abdominal aortic aneurysm. Lymph nodes: Unremarkable. No enlarged lymph nodes. Urinary bladder: Unremarkable as visualized. Reproductive: Unremarkable as visualized. Bones/joints: Unremarkable. No acute fracture. Soft tissues: No peripherally enhancing loculated abdominopelvic fluid collection. Scattered varices in the abdominal wall. CT/CT abdomen pelvis w con* [id number] IMPRESSION: 1. Sequela of liver cirrhosis which includes moderate ascites volume. 2. Bowel wall thickening changes are noted and nonspecific, most likely related to underlying fluid overload status. Radiation Dose CTDIVOL = (mGy): DLP = 1592.18 (mGy-cm)
[2020-07-27 18:18] LABS: Bilirubin Urine 1+ (Negative); Blood Urine Neg (Negative); Glucose Urine UA Norm (Normal); Ketones Urine Negative (Negative); Leukocyte Esterase Urine Negative (Negative); Nitrate Urine Negative (Negative); Protein Urine Neg (Negative); Urine Appearance Clear (CLEAR); Urine Color Yellow (Yellow); Urobilinogen Urine 1 mg/dL (Negative); pH Urine 6 (5-7)
[2020-07-27 18:27] LABS: Amphetamines Screen Urine Negative (Negative); Barbiturates Screen Urine Negative (Negative); Benzodiazepines Screen Urine Negative (Negative); Cocaine Screen Urine Negative (Negative); Opiate Screen Urine Negative (Negative); PCP Screen Urine Negative (Negative); THC Screen Urine Negative (Negative)
[2020-07-27] MEDS: iohexol 300 mg/mL 100 mL Btl IV (18:55)
--- NOTE | 2020-07-27 19:30 | PM.HP ---
Providers/Chief Complaint Admitting Physician: Rigoberto Basurto MD Primary Care Provider: Rosa M Morrison MD Chief Complaint: REALLY LOW BP, R SIDE ACHES/PAINS History of Present Illness Tonny Miller Jr is a 49 year old male with past medical history of hypertension, borderline type 2 diabetes mellitus, tobacco abuse, chronic alcoholism, hyperlipidemia, jaundice for last 3 months presented to ER with abdominal pain since last night. Patient states he has been having cough for last 2 to 3 weeks whenever he would lie down but for the last 2 days the cough has increased. Last night while coughing he felt a snap in the right side of her belly after which pain started. Pain is getting aggravated with cough and movement. He denies any nausea, vomiting, headache, dizziness. Pain is nonradiating, crampy type. On presentation to the ER he was found to have a white count of 5.7, hemoglobin of 4.5, INR of 1.49, potassium of 2.4, sodium of 136, chloride of 95, creatinine of 0.8, calcium of 7.8, AST/ALT of 27/44, alkaline phosphatase of 308. Patient denies any nausea, vomiting, hematemesis, diarrhea, constipation, melena. He states he was having some blood in his bowel movements for many months till around 3 months ago but he has not had any further bleeding. He has not seen a doctor for similar complaints. He did have an ultrasound last week because of abnormal liver functions as per his primary care which showed enlarged liver. He also states he did see Dr. Joseph from cardiology because of shortness of breath and was started on Lasix which he had not taken for last 1 week because his blood pressure dropped on starting the medications and his PCP had advised him not to take the Lasix for now. Review of Systems General: Reports: 10 or more systems reviewed and unremarkable except in HPI and below Const: Denies: fever(s), chills, body aches, change in appetite, change in weight, malaise, night sweats, diaphoresis, change in sleep pattern, daytime sleepiness or snoring Eyes: Denies: change in vision, blurry vision, photophobia, eye discomfort or eye discharge ENMT: Denies: throat pain, enlarged tonsils, hoarseness, mouth pain, oral sores, dry mouth, tinnitus, nasal congestion or post nasal drip Card: Denies: chest pain, palpitations, irregular heart rhythm, edema, swelling of feet/ankles, lightheadedness, syncope, pre-syncope, dyspnea on exertion, orthopnea, leg pain with exertion or acrocyanosis Resp: Denies: dyspnea, productive cough, non-productive cough, wheezing, stridor, pain on inspiration, change in phlegm color, hemoptysis or chest congestion GI: Denies: abdominal pain, nausea, vomiting, hematemesis, coffee ground emesis, dysphagia, heartburn, diarrhea, constipation, bloating, GI cramping, change in bowel habits, pain on defecation, hematochezia or melena : Denies: flank pain, difficulty urinating, dysuria, urinary frequency, urinary urgency, urinary hesitancy, urinary dribbling, difficulty starting urination, change in urine stream, nocturia or hematuria Musc: Denies: neck pain, back pain, extremity pain, joint pain, joint swelling, joint redness, joint stiffness or limited range of motion Neuro: Denies: headache(s), numbness in extremities, weakness in extremities, sensory changes, lack of coordination, difficulty walking, frequent falls, dizziness, vertigo, confusion, Slurred speech present, difficulty communicating thoughts or seizure-like activity Psych: Denies: anxiety, depression, mood swings, panic attacks, hopelessness or irritability Endo: Denies: polyuria, polydipsia, tired all the time, cold intolerance, excessive sweating, flushing or heat intolerance Baldo/Lymph: Denies: easy bruising or easy bleeding All/Imm: Denies: tongue swelling, facial swelling or acute wheezing Medications/Allergies Home Medications Medication Instructions Recorded Confirmed Last Taken Type albuterol sulfate 90 mcg/actuation 2 puff INHALATION Q6H PRN #8.5 g 06/28/20 07/27/20 Unknown Rx aerosol inhaler furosemide 40 mg PO BID@06,14 07/27/20 07/27/20 07/27/20 06:00 History ibuprofen 200 mg PO PRN 07/27/20 07/27/20 Unknown History multivitamin 1 tab PO DAILY PRN 07/27/20 07/27/20 Unknown History potassium chloride 8 meq PO BID@06,14 07/27/20 07/27/20 07/27/20 06:00 History Allergies Allergy/AdvReac Type Severity Reaction Status Date / Time No Known Allergies Allergy Verified 07/27/20 17:06 PFSH Acute PFSH: Medical History Cardiomegaly GERD (gastroesophageal reflux disease) History of alcoholism Hypercholesteremia Hypertension Type 2 diabetes mellitus Social History Smoking and tobacco status: current every day smoker smokeless tobacco Smokeless tobacco user: chewing tobacco Smokeless tobacco details: 0.25 CAN PER DAY Quit status (tobacco): not considering quitting Second hand smoke exposure: No Alcohol intake: current Alcohol intake frequency: 0-2 Drinks per Day History of recent travel: No Current gender identity: Male Vitals/I&O/Wt Last Vital Signs Temp 98.9 F 07/27/20 19:15 Pulse 99 07/27/20 19:15 Resp 22 H 07/27/20 19:15 BP 108/58 07/27/20 19:15 Pulse Ox 98 07/27/20 19:15 07/27/20 07/27/20 07/27/20 06:59 14:59 22:59 Intake Total 0 / 0 Balance 0 / 0 Weight last 48 hrs Weight 102.058 kg Physical Exam Narrative: EXAM NARRATIVE: General: No acute distress, AO x3, icterus, pale HEENT: PERRLA, pupils bilaterally equal and reactive Chest: Normal vesicular breath sounds, no added sounds, equal good air entry bilaterally CVS: S1-S2 regular, no murmurs, no tachycardia, no gallops, no rubs Abdomen: Soft, distended, tender in RUQ, nodular hepatomegaly,tympanic, bowel sounds present Neuro: No focal deficits, no facial deformity, AO x3, power 5/5 in all limbs Data : 07/28/20 05:46 07/28/20 05:46 Other Labs: Pertinent Labs During Stay 07/27/20 07/27/20 07/27/20 16:20 16:20 16:20 Iron TIBC % Saturation Troponin T Gen 5 ng/L 12 C-Reactive Protein 22.7 H Lipase 70 H Vitamin B12 Folate 14.0 Salicylates < 0.3 L Acetaminophen < 5.0 L 07/27/20 07/27/20 16:20 16:20 Iron 14 L TIBC 342 % Saturation 4.0 L Troponin T Gen 5 ng/L C-Reactive Protein Lipase Vitamin B12 1526 H Folate Salicylates Acetaminophen Impressions KUB X-Ray 07/27/20 16:08 IMPRESSION: 1. Ascites. 2. Nonspecific mucosal fold thickening of small bowel loops. Abdomen/Pelvis CT 07/27/20 18:04 IMPRESSION: 1. Sequela of liver cirrhosis which includes moderate ascites volume. 2. Bowel wall thickening changes are noted and nonspecific, most likely related to underlying fluid overload status. Radiation Dose CTDIVOL = (mGy): DLP = 1592.18 (mGy-cm) A&P Assessment and plan (1) Right upper quadrant abdominal pain: Status: Acute (2) Anemia: Status: Acute (3) Liver disease, chronic, due to alcohol: Status: Acute (4) Chronic alcoholic liver disease: Status: Acute (5) Acute hypokalemia: Status: Acute (6) Hypercholesteremia: Status: Acute (7) GERD (gastroesophageal reflux disease): Status: Acute Qualifiers: Esophagitis presence: with esophagitis Qualified Code(s): K21.0 - Gastro-esophageal reflux disease with esophagitis (8) Type 2 diabetes mellitus: Status: Acute Qualifiers: Diabetes mellitus complication status: without complication Diabetes mellitus skilled nursing insulin use: without skilled nursing use Qualified Code(s): E11.9 - Type 2 diabetes mellitus without complications (9) Hypertension: Status: Acute Qualifiers: Hypertension type: essential hypertension Qualified Code(s): I10 - Essential (primary) hypertension Additional A&P Information Right upper quadrant pain: Most likely musculoskeletal. Check CT abdomen pelvis with contrast to rule out any intra-abdominal collection, liver abscess. Start patient on cough suppressant with Tessalon Perles and Robitussin as needed. Lidocaine patch for pain. Liver cirrhosis/ascites: Pain most likely because of ascites as well. Depending on the amount of ascites on the CT scan patient might require paracentesis. No signs of intra-abdominal infection at present. Check iron panel, hepatitis panel, haptoglobin level, LDH, GGT, CRP, vitamin B12, folate, TSH, urinalysis, urine drug screen, alcohol level, acetaminophen level. Child Santana score 9 class B Anemia: No active signs of melena or hematemesis. Check iron panel, hepatic haptoglobin levels. Transfuse 2 units of PRBC with 20 mg of IV Lasix in between. Repeat hemoglobin in morning. Hypokalemia: Replace with 80 mEq oral potassium and replete in morning. Monitor BMP daily for now. Hypertension: Goal blood pressure less than 140/90 mmHg. We will continue to monitor. Regular diet. Full code. No pharmacological DVT prophylaxis. Attestations Medical Necessity Statement*: Admission for more than 2 midnights for severe anemia requiring blood transfusion in setting of liver cirrhosis Time Spent in Patient Care: Greater than 35 minutes (>than 50% of time spent in counselling and/or direct pt care on unit). Coding Level of Care Code Acute Aircraft Cylinder Mechanic for Chg Fwd Diagnoses Right upper quadrant abdominal pain R10.11 Anemia D64.9 Liver disease, chronic, due to alcohol K70.9 Chronic alcoholic liver disease K70.9 Acute hypokalemia E87.6 Hypercholesteremia E78.00 GERD (gastroesophageal reflux disease) K21.0 Esophagitis presence: with esophagitis Type 2 diabetes mellitus E11.9 Diabetes mellitus complication status: without complication Diabetes mellitus ferry terminal supervisor insulin use: without ferry terminal supervisor use Hypertension I10 Hypertension type: essential hypertension
[2020-07-27 19:58] LABS: Iron 14 ug/dL (59-158); Total Iron Binding Capacity 342 mcg/dl; Unsaturated Iron Binding 328 ug/dL (112-347)
[2020-07-27 20:16] LABS: Vitamin B12 1526 pg/mL (232-1245)
[2020-07-27] MEDS: lidocaine 1% 5 ML in potassium chloride premix 100 ML 25 ML IV (20:25)
[2020-07-27 21:27] LABS: Glucose Point of Care 114 mg/dL (70-110)
[2020-07-27] MEDS: FUROsemide 10 mg/mL SDV 2mL 20 MG IVP (21:55)
[2020-07-27] MEDS: benzonatate 100 mg Capsule PO (21:57)
[2020-07-27 22:16] LABS: Ferritin 5 ng/mL (30-400); Iron 6 ug/dL (59-158); NT Pro B Type Natriuretic Pept 189 pg/mL (0-125)
[2020-07-27 22:45] LABS: Thyroid Stimulating Hormone 0.67 uIU/mL (0.27-4.20)
[2020-07-28] VITALS (21 sets, daily range): BP systolic 103–121; BP diastolic 63–81; PULSE 82–99; RESP 16–22; TEMP 36.3–37.2; O2SAT 96–99
[2020-07-28] MEDS: lidocaine 1% 5 ML in potassium chloride premix 100 ML 25 ML IV (01:37)
[2020-07-28] MEDS: FUROsemide 40 mg Tablet PO ×2 (06:03→14:43)
[2020-07-28 06:22] LABS: Alanine Aminotransferase 24 U/L (0-41); Albumin Level 2.9 g/dL (3.5-5.2); Alkaline Phosphatase 282 IU/L (40-130); Anion Gap 9.7 (5-19); Aspartate Amino Transferase 40 U/L (0-40); Blood Urea Nitrogen 10 mg/dL (6-20); Calcium 7.5 mg/dL (8.5-10.5); Carbon Dioxide 30 mmol/L (22-29); Chloride 96 mmol/L (98-107); Creatinine Clr Calc Pharmacy 150.3002; Globulin 2.7 g/dL (1.3-4.6); Glomerular Filtration Rate 119.9 mL/min (90-130); Glucose 104 mg/dL (65-115); Lactate Dehydrogenase 203 U/L (135-225); Osmolality Calculated 275 mOsm/kg (285-295); Sodium 133 mmol/L (136-145); Total Bilirubin 2.2 mg/dL (0.15-1.2); Total Protein 5.6 g/dL (6.6-8.7)
[2020-07-28 06:28] LABS: Basophils % 0.6 %; Eosinophils # 0.1 10^3/uL (0.0-0.8); Eosinophils % 1.1 %; Lymphocytes # 1.2 10^3/uL (0.8-4.8); Lymphocytes % 19.8 %; Mean Corpuscular HGB Conc 27.9 g/dL (30.0-36.0); Mean Corpuscular Hemoglobin 21.7 pg (28.0-34.0); Mean Corpuscular Volume 77.9 fL (80-94); Mean Platelet Volume 10.8 fL (7.4-10.4); Monocytes # 0.6 10^3/uL (0.2-0.9); Monocytes % 9.2 %; Neutrophils # 4.26 10^3/uL (1.8-7.7); Neutrophils % 68.8 %; Nucleated Red Blood Cells % 0 %; Platelet Count 265 10^3/cmm (130-400); Red Blood Count 2.35 10^6/uL (4.1-5.3); Red Cell Distribution Width 22.4 % (12.1-15.1); White Blood Count 6.2 10^3/uL (4.0-10.0)
[2020-07-28 06:40] LABS: Glucose Point of Care 168 mg/dL (70-110)
[2020-07-28 06:44] LABS: HIV 1 & 2 Antibody Non-Reactive (Non-Reactiv); HIV 1 & 2 Antigen Non-Reactive (Non-Reactiv)
[2020-07-28 06:59] LABS: Potassium 2.7 mmol/L (3.5-5.1)
--- NOTE | 2020-07-28 07:05 | PC.NURSE ---
Notified Dr Daily that patient's potassium is 2.7
--- NOTE | 2020-07-28 07:41 | PC.NURSE ---
rcvd order from Dr Basurto for 120 meq potassium. scientific technical writer put order in for potassium.
[2020-07-28] MEDS: thiamine 100 mg Tablet PO (08:36)
[2020-07-28] MEDS: benzonatate 100 mg Capsule PO ×3 (08:36→20:11)
[2020-07-28] MEDS: folic acid 1 mg Tablet PO (08:36)
[2020-07-28] MEDS: pantoprazole DR 40 mg Tablet PO ×2 (08:36→16:42)
[2020-07-28] MEDS: multivitamin therapeutic Tablet 1 TAB PO (08:36)
[2020-07-28] MEDS: potassium chloride ER 20 mEq Tablet 120 MEQ PO (08:36)
--- NOTE | 2020-07-28 08:51 | PC.NURSE ---
pt states about 6 weeks ago he would wake up to brush his teeth and would gag and then his nose would bleed, this went on for about 2 months and then just stopped. pt stated he has not seen blood in his stool for about 6 weeks but not sure on exact amount of time. pt is unsure of last bm.
[2020-07-28 09:01] LABS: Hemoglobin 5.1 g/dL (11.7-16.6)
[2020-07-28 09:02] LABS: Hematocrit 18.3 % (42.0-52.0)
[2020-07-28 10:46] LABS: Glucose Point of Care 147 mg/dL (70-110)
[2020-07-28] MEDS: sodium chloride 0.9% (100 ml) 100 ML 50 ML ×2 (11:02→16:43)
--- NOTE | 2020-07-28 13:57 | P.PN_ITS ---
Subjective Subjective: Interval history: No acute events overnight. Overnight patient received 2 units of PRBC transfusion. Hemoglobin up to 5.1 today. On examination sitting comfortably in bed having complete position without any difficulty in breathing. Patient has remained hemodynamically stable and afebrile. Labs and vitals noted. Vitals/I&O/Wt Last Vital Signs Temp 98.7 F 07/28/20 11:46 Pulse 87 07/28/20 11:46 Resp 19 H 07/28/20 11:46 BP 105/66 07/28/20 11:46 Pulse Ox 99 07/28/20 11:46 07/27/20 07/28/20 07/28/20 22:59 06:59 14:59 Intake Total 470 / 470 455 / 925 340 / 340 Output Total 650 / 650 1100 / 1100 Balance 470 / 470 -195 / 275 -760 / -760 Weight last 48 hrs Weight 102.058 kg Physical Exam Narrative: EXAM NARRATIVE: General: No acute distress, AO x3, icterus, pale HEENT: PERRLA, pupils bilaterally equal and reactive Chest: Normal vesicular breath sounds, no added sounds, equal good air entry bilaterally CVS: S1-S2 regular, no murmurs, no tachycardia, no gallops, no rubs Abdomen: Soft, distended, tender in RUQ, nodular hepatomegaly,tympanic, bowel sounds present Neuro: No focal deficits, no facial deformity, AO x3, power 5/5 in all limbs Data : 07/28/20 05:46 07/28/20 05:46 Other Labs: Pertinent Labs During Stay 07/27/20 07/27/20 07/27/20 16:20 16:20 16:20 Haptoglobin Iron TIBC % Saturation Ferritin Troponin T Gen 5 ng/L 12 C-Reactive Protein 22.7 H NT-Pro-B Natriuret Pep Lipase 70 H Vitamin B12 Folate 14.0 TSH Salicylates < 0.3 L Acetaminophen < 5.0 L 07/27/20 07/27/20 07/27/20 16:20 16:20 16:20 Haptoglobin Iron 14 L 6 L TIBC 342 % Saturation 4.0 L Ferritin 5 L Troponin T Gen 5 ng/L C-Reactive Protein NT-Pro-B Natriuret Pep 189 H Lipase Vitamin B12 1526 H Folate TSH Salicylates Acetaminophen 07/27/20 07/27/2021 16:20 16:20 05:46 Haptoglobin 165.0 143.0 Iron TIBC % Saturation Ferritin Troponin T Gen 5 ng/L C-Reactive Protein NT-Pro-B Natriuret Pep Lipase Vitamin B12 Folate TSH 0.67 Salicylates Acetaminophen Laboratory Results Impressions KUB X-Ray 07/27/20 16:08 IMPRESSION: 1. Ascites. 2. Nonspecific mucosal fold thickening of small bowel loops. Abdomen/Pelvis CT 07/27/20 18:04 IMPRESSION: 1. Sequela of liver cirrhosis which includes moderate ascites volume. 2. Bowel wall thickening changes are noted and nonspecific, most likely related to underlying fluid overload status. Radiation Dose CTDIVOL = (mGy): DLP = 1592.18 (mGy-cm) A&P Assessment and plan (1) Right upper quadrant abdominal pain: Status: Acute (2) Anemia: Status: Acute (3) Liver disease, chronic, due to alcohol: Status: Acute (4) Chronic alcoholic liver disease: Status: Acute (5) Acute hypokalemia: Status: Acute (6) Hypercholesteremia: Status: Acute (7) GERD (gastroesophageal reflux disease): Status: Acute Qualifiers: Esophagitis presence: with esophagitis Qualified Code(s): K21.0 - Gastro-esophageal reflux disease with esophagitis (8) Type 2 diabetes mellitus: Status: Acute Qualifiers: Diabetes mellitus penitentiary insulin use: without penitentiary use Diabetes mellitus complication status: without complication Qualified Code(s): E11.9 - Type 2 diabetes mellitus without complications (9) Hypertension: Status: Acute Qualifiers: Hypertension type: essential hypertension Qualified Code(s): I10 - Essential (primary) hypertension Additional A&P Information Right upper quadrant pain: Most likely musculoskeletal. CT abdomen consistent with liver cirrhosis and moderate ascites. Continue with Tessalon Perles and Robitussin for cough suppressant. Lidocaine patch for pain. Liver cirrhosis/ascites: Pain most likely because of ascites as well. Plan for paracentesis tomorrow once radiology team is available. Result of iron panel, hepatitis panel, LDH, GGT, HIV, CRP, vitamin B12, folate, TSH, urinalysis, drug screen, alcohol and acetaminophen level noted to be within normal limits other than severe iron deficiency anemia. Child Santana score 9 class B Continue with folic acid, thiamine. Anemia: Iron panel results appreciated. No active signs of melena or hematemesis. Overall patient has received 2 units of transfusion for now. Repeat 2 more units. Hemoglobin up 5.1. Start patient on oral iron supplementation. Repeat hemoglobin in morning. Protonix 40 mg oral twice daily. Hypokalemia: Replace with 80 mEq oral potassium and replete in morning. Monitor BMP daily for now. Hypertension: Goal blood pressure less than 140/90 mmHg. We will continue to monitor. Continue with home dose of Lasix 40 mg oral twice daily. Regular diet. Full code. No pharmacological DVT prophylaxis. Attestations Medical Necessity Statement*: Patient requires further hospitalization for management of severe anemia with a hemoglobin of 5.1 requiring multiple blood transfusion and paracentesis for moderate ascites. Time Spent in Patient Care: Greater than 35 minutes (>than 50% of time spent in counselling and/or direct pt care on unit) . Coding Level of Care Code Acute Sr Vice President for Chg Fwd Diagnoses Right upper quadrant abdominal pain R10.11 Anemia D64.9 Liver disease, chronic, due to alcohol K70.9 Chronic alcoholic liver disease K70.9 Acute hypokalemia E87.6 Hypercholesteremia E78.00 GERD (gastroesophageal reflux disease) K21.0 Esophagitis presence: with esophagitis Type 2 diabetes mellitus E11.9 Diabetes mellitus terminal operations supervisor insulin use: without terminal operations supervisor use Diabetes mellitus complication status: without complication Hypertension I10 Hypertension type: essential hypertension
[2020-07-28 14:37] LABS: Gamma Glutamyl Transferase 318 U/L (8-61)
[2020-07-28] MEDS: potassium chloride ER 10 mEq Tablet PO (14:43)
[2020-07-28 17:14] LABS: Glucose Point of Care 123 mg/dL (70-110)
[2020-07-28] MEDS: lidocaine 5% Patch 1 PATCH TOPICAL (20:11)
[2020-07-28 20:33] LABS: Glucose Point of Care 140 mg/dL (70-110)
[2020-07-28 21:30] LABS: Hemoglobin 7.6 g/dL (11.7-16.6)
[2020-07-29] VITALS: BP 111/75; PULSE 87; RESP 21; TEMP 36.9; O2SAT 98
[2020-07-29 04:00] VITALS: BP 99/60; PULSE 81; RESP 20; TEMP 36.6; O2SAT 97
--- NOTE | 2020-07-29 05:35 | PC.NURSE ---
Patient has Lasix 40mg PO ordered for this morning. Patient BP is 99/60 which is lower than it has been. Dr. Alvarado gave the okay to administer medication.
[2020-07-29] MEDS: potassium chloride ER 10 mEq Tablet PO (05:37)
[2020-07-29] MEDS: FUROsemide 40 mg Tablet PO (05:37)
[2020-07-29 06:00] LABS: Basophils # 0.1 10^3/uL (0.0-0.1); Basophils % 0.8 %; Eosinophils # 0.2 10^3/uL (0.0-0.8); Eosinophils % 2.4 %; Hematocrit 24.1 % (42.0-52.0); Hemoglobin 7.1 g/dL (11.7-16.6); Lymphocytes # 1.5 10^3/uL (0.8-4.8); Lymphocytes % 24.5 %; Mean Corpuscular HGB Conc 29.5 g/dL (30.0-36.0); Mean Corpuscular Volume 81.4 fL (80-94); Mean Platelet Volume 10.8 fL (7.4-10.4); Monocytes # 0.6 10^3/uL (0.2-0.9); Monocytes % 9.7 %; Neutrophils # 3.87 10^3/uL (1.8-7.7); Neutrophils % 62.3 %; Nucleated Red Blood Cells % 0 %; Platelet Count 245 10^3/cmm (130-400); Red Blood Count 2.96 10^6/uL (4.1-5.3); Red Cell Distribution Width 20.7 % (12.1-15.1); White Blood Count 6.2 10^3/uL (4.0-10.0)
[2020-07-29 06:29] LABS: Alanine Aminotransferase 21 U/L (0-41); Albumin Level 2.6 g/dL (3.5-5.2); Alkaline Phosphatase 267 IU/L (40-130); Anion Gap 8.9 (5-19); Aspartate Amino Transferase 34 U/L (0-40); Blood Urea Nitrogen 9 mg/dL (6-20); Calcium 7.4 mg/dL (8.5-10.5); Carbon Dioxide 30 mmol/L (22-29); Chloride 103 mmol/L (98-107); Creatinine Clr Calc Pharmacy 150.3002; Globulin 2.9 g/dL (1.3-4.6); Glomerular Filtration Rate 119.9 mL/min (90-130); Glucose 93 mg/dL (65-115); Osmolality Calculated 286 mOsm/kg (285-295); Sodium 139 mmol/L (136-145); Total Bilirubin 2.1 mg/dL (0.15-1.2); Total Protein 5.5 g/dL (6.6-8.7)
[2020-07-29 06:35] LABS: Glucose Point of Care 112 mg/dL (70-110)
[2020-07-29 06:48] LABS: Potassium 2.9 mmol/L (3.5-5.1)
[2020-07-29 07:23] LABS: Magnesium 1.8 mg/dL (1.7-2.3); Phosphorus 2.4 mg/dL (2.5-4.5)
[2020-07-29 08:00] VITALS: BP 120/75; PULSE 81; RESP 18; TEMP 36.7; O2SAT 96
[2020-07-29 09:27] VITALS: PULSE 88; RESP 18; O2SAT 95
[2020-07-29 09:52] LABS: Body Fluid Polynuclear #Cells 0.015; Body Fluid WBC 149 /uL; Monocytes # Body Fluid 0.134; RBC, Body Fluid 0 10^3/uL
[2020-07-29 09:55] LABS: Apprearance, Body Fluid CLEAR; Color, Body Fluid PALE YELLOW; PATH Referral YES
[2020-07-29 10:33] LABS: Albumin Body Fluid 0.7 g/dL; Fluid Alkaline Phos. 51 IU/L; Total Protein Body Fluid 1 g/dL
[2020-07-29 10:34] LABS: Amylase Body Fluid 25 U/L; Cholesterol Body Fluid 17 mg/dL (0-200); LDH Body Fluid 54 U/L; Triglycerides Body Fluid 20 mg/dL (0-150); Uric Acid Body Fluid 6 mg/dL
[2020-07-29] MEDS: thiamine 100 mg Tablet PO (10:46)
[2020-07-29] MEDS: benzonatate 100 mg Capsule PO (10:46)
[2020-07-29] MEDS: potassium chloride ER 20 mEq Tablet 40 MEQ PO (10:46)
[2020-07-29] MEDS: folic acid 1 mg Tablet PO (10:46)
[2020-07-29] MEDS: pantoprazole DR 40 mg Tablet PO (10:46)
[2020-07-29] MEDS: multivitamin therapeutic Tablet 1 TAB PO (10:46)
--- NOTE | 2020-07-29 11:27 | PM.DCS ---
Discharge Providers Date of Admission: 07/28/20 14:02 Date of Discharge: July 29, 2020 Attending Provider at Admission: Rigoberto Basurto MD Attending Provider at Discharge: Rigoberto Basurto MD Primary Care Provider: Rosa M Morrison MD Diagnoses at Discharge Discharge Diagnosis (1) Right upper quadrant abdominal pain: Status: Acute (2) Anemia: Status: Acute (3) Liver disease, chronic, due to alcohol: Status: Acute (4) Chronic alcoholic liver disease: Status: Acute (5) Acute hypokalemia: Status: Acute (6) Hypercholesteremia: Status: Acute (7) GERD (gastroesophageal reflux disease): Status: Acute Qualifiers: Esophagitis presence: with esophagitis Qualified Code(s): K21.0 - Gastro-esophageal reflux disease with esophagitis (8) Type 2 diabetes mellitus: Status: Acute Qualifiers: Diabetes mellitus shelter insulin use: without terminal block assembler use Diabetes mellitus complication status: without complication Qualified Code(s): E11.9 - Type 2 diabetes mellitus without complications (9) Hypertension: Status: Acute Qualifiers: Hypertension type: essential hypertension Qualified Code(s): I10 - Essential (primary) hypertension Reason for Visit Reason for Visit: REALLY LOW BP, R SIDE ACHES/PAINS Hospital Course Hospital Course Tonny Miller Jr is a 49 year old male with past medical history of hypertension, borderline type 2 diabetes mellitus, tobacco abuse, chronic alcoholism, hyperlipidemia, jaundice for last 3 months presented to ER with abdominal pain since last night. Patient states he has been having cough for last 2 to 3 weeks whenever he would lie down but for the last 2 days the cough has increased. Last night while coughing he felt a snap in the right side of her belly after which pain started. Pain is getting aggravated with cough and movement. He denies any nausea, vomiting, headache, dizziness. Pain is nonradiating, crampy type. On presentation to the ER he was found to have a white count of 5.7, hemoglobin of 4.5, INR of 1.49, potassium of 2.4, sodium of 136, chloride of 95, creatinine of 0.8, calcium of 7.8, AST/ALT of 27/44, alkaline phosphatase of 308. Patient denies any nausea, vomiting, hematemesis, diarrhea, constipation, melena. He states he was having some blood in his bowel movements for many months till around 3 months ago but he has not had any further bleeding. He has not seen a doctor for similar complaints. He did have an ultrasound last week because of abnormal liver functions as per his primary care which showed enlarged liver. He is under the hospital because of extremely low hemoglobin and was transfused overall 4 units of PRBC. During hospitalization he did not have any active melena or hematemesis. It is believed patient's abdominal pain is because of moderate arthritis along with muscle spasm which she developed during cough. Patient also underwent ultrasound-guided paracentesis in which 3300 cc of fluid was drained. Fluid studies have been sent and are awaited. Patient is been discharged hemodynamically stable condition with advised to follow-up with his primary care provider in the next 1 week from where he should get a referral to see a liver specialist. During hospitalization other blood work showed severe iron deficiency anemia, elevated vitamin B12 levels, normal TSH and folate levels, negative serology for HIV and hepatitis panel with urinalysis negative for any drugs or negative for alcohol, salicylate or acetaminophen level. Physical Exam Narrative: EXAM NARRATIVE: General: No acute distress, AO x3, icterus, pale HEENT: PERRLA, pupils bilaterally equal and reactive Chest: Normal vesicular breath sounds, no added sounds, equal good air entry bilaterally CVS: S1-S2 regular, no murmurs, no tachycardia, no gallops, no rubs Abdomen: Soft, distended, tender in RUQ, nodular hepatomegaly,tympanic, bowel sounds present Neuro: No focal deficits, no facial deformity, AO x3, power 5/5 in all limbs Discharge Data Data Completed and Pending: Completed Studies During Hospitalization Category Date Time Status CT abdomen pelvis w con* [id number] Urge nt Cat Scan 07/27/20 18:04 Completed XR KUB portable 7 [id number] Urgent Exams 07/27/20 16:08 [place] bd w [id number] Routine Ultrasound 07/29/20 11:32 Completed Pending at discharge Category Date Time Status Anaerobic Culture Routine Lab 07/28/20 09:30 Received Body Fluid Cultur e & GS Routine Lab 07/28/20 09:30 Received Mycobacteria, Cul ture w/Fluor Routi ne Lab 07/28/20 09:30 Received Potassium Routine Lab 07/29/20 14:00 Ordered Labs from last 24 hours 07/29/20 07/29/20 07/29/20 06:31 05:16 05:16 WBC RBC Hgb Hct MCV MCH MCHC RDW Plt Count MPV Neut % (Auto) Lymph % (Auto) [place] % (Auto) Eos % (Auto) Baso % (Auto) Neut # (Auto) Lymph # (Auto) [place] # (Auto) Eos # (Auto) Baso # (Auto) Nucleated RBC % (a uto) Nucleated RBCs # Differential Comme nt Sodium 139 Potassium 2.9 L Chloride 103 Carbon Dioxide 30 H Anion Gap 8.9 BUN 9 Creatinine 0.7 GFR Calculation 119.9 Glucose 93 POC Glucose 112 H Calculated Osmolal ity 286 Calcium 7.4 L Phosphorus 2.4 L Magnesium 1.8 Total Bilirubin 2.1 H GGT AST 34 ALT 21 Alkaline Phosphata se 267 H Total Protein 5.5 L Albumin 2.6 L Globulin 2.9 Fluid Color Fluid Appearance Fluid Specific Gra v Fluid pH Fluid WBC Fluid RBC Fld Polynuclear WB Cs # Fld Polynuclear WB Cs % Fl Mononucl WBCs # (Auto) Fl Mononuclear % A uto Fluid Glucose Fluid Total Protei n Fluid Albumin Fluid LDH Fluid Amylase Fluid Alk Phosphat ase Fluid Cholesterol Fluid Triglyceride s Fluid Uric Acid Blood Type Rho(D) Type Antibody Screen Crossmatch 07/29/20 07/28/20 07/28/20 05:16 21:16 20:27 WBC 6.2 RBC 2.96 L Hgb 7.1 L 7.6 L D Hct 24.1 L 25.0 L D MCV 81.4 MCH 24.0 L D MCHC 29.5 L D RDW 20.7 H Plt Count 245 MPV 10.8 H Neut % (Auto) 62.3 Lymph % (Auto) 24.5 [place] % (Auto) 9.7 Eos % (Auto) 2.4 Baso % (Auto) 0.8 Neut # (Auto) 3.87 Lymph # (Auto) 1.5 [place] # (Auto) 0.6 Eos # (Auto) 0.2 Baso # (Auto) 0.1 Nucleated RBC % (a uto) 0 Nucleated RBCs # 0.0 Differential Comme nt Sodium Potassium Chloride Carbon Dioxide Anion Gap BUN Creatinine GFR Calculation Glucose POC Glucose 140 H Calculated Osmolal ity Calcium Phosphorus Magnesium Total Bilirubin GGT AST ALT Alkaline Phosphata se Total Protein Albumin Globulin Fluid Color Fluid Appearance Fluid Specific Gra v Fluid pH Fluid WBC Fluid RBC Fld Polynuclear WB Cs # Fld Polynuclear WB Cs % Fl Mononucl WBCs # (Auto) Fl Mononuclear % A uto Fluid Glucose Fluid Total Protei n Fluid Albumin Fluid LDH Fluid Amylase Fluid Alk Phosphat ase Fluid Cholesterol Fluid Triglyceride s Fluid Uric Acid Blood Type Rho(D) Type Antibody Screen Crossmatch 07/28/20 07/28/20 07/28/20 17:05 09:30 05:46 WBC RBC Hgb Hct MCV MCH MCHC RDW Plt Count MPV Neut % (Auto) Lymph % (Auto) [place] % (Auto) Eos % (Auto) Baso % (Auto) Neut # (Auto) Lymph # (Auto) [place] # (Auto) Eos # (Auto) Baso # (Auto) Nucleated RBC % (a uto) Nucleated RBCs # Differential Comme nt Yes Sodium Potassium Chloride Carbon Dioxide Anion Gap BUN Creatinine GFR Calculation Glucose POC Glucose 123 H Calculated Osmolal ity Calcium Phosphorus Magnesium Total Bilirubin GGT 318 H AST ALT Alkaline Phosphata se Total Protein Albumin Globulin Fluid Color Pale yellow Fluid Appearance Clear Fluid Specific Gra v 1.010 Fluid pH 8.0 Fluid WBC 149 Fluid RBC 0 Fld Polynuclear WB Cs # 0.015 Fld Polynuclear WB Cs % 10.100 Fl Mononucl WBCs # (Auto) 0.134 Fl Mononuclear % A uto 89.900 Fluid Glucose 112.0 Fluid Total Protei n 1 Fluid Albumin 0.7 Fluid LDH 54 Fluid Amylase 25 Fluid Alk Phosphat ase 51 Fluid Cholesterol 17 Fluid Triglyceride s 20 Fluid Uric Acid 6 Blood Type Rho(D) Type Antibody Screen Crossmatch 07/27/20 17:45 WBC RBC Hgb Hct MCV MCH MCHC RDW Plt Count MPV Neut % (Auto) Lymph % (Auto) [place] % (Auto) Eos % (Auto) Baso % (Auto) Neut # (Auto) Lymph # (Auto) [place] # (Auto) Eos # (Auto) Baso # (Auto) Nucleated RBC % (a uto) Nucleated RBCs # Differential Comme nt Sodium Potassium Chloride Carbon Dioxide Anion Gap BUN Creatinine GFR Calculation Glucose POC Glucose Calculated Osmolal ity Calcium Phosphorus Magnesium Total Bilirubin GGT AST ALT Alkaline Phosphata se Total Protein Albumin Globulin Fluid Color Fluid Appearance Fluid Specific Gra v Fluid pH Fluid WBC Fluid RBC Fld Polynuclear WB Cs # Fld Polynuclear WB Cs % Fl Mononucl WBCs # (Auto) Fl Mononuclear % A uto Fluid Glucose Fluid Total Protei n Fluid Albumin Fluid LDH Fluid Amylase Fluid Alk Phosphat ase Fluid Cholesterol Fluid Triglyceride s Fluid Uric Acid Blood Type O Positive Rho(D) Type Positive Antibody Screen Negative Crossmatch See Detail Addt'l Data from Hospital Stay: Laboratory Results Impressions KUB X-Ray 07/27/20 16:08 IMPRESSION: 1. Ascites. 2. Nonspecific mucosal fold thickening of small bowel loops. Abdomen/Pelvis CT 07/27/20 18:04 IMPRESSION: 1. Sequela of liver cirrhosis which includes moderate ascites volume. 2. Bowel wall thickening changes are noted and nonspecific, most likely related to underlying fluid overload status. Radiation Dose CTDIVOL = (mGy): DLP = 1592.18 (mGy-cm) Paracentesis Ultrasound 07/29/20 11:32 IMPRESSION: Uncomplicated paracentesis yielding 3300 ml of peritoneal fluid. Peritoneal fluid specimen collected for analysis as requested. Vitals: Last Vital Signs Temp 98.0 F 07/29/20 08:00 Pulse 88 07/29/20 09:27 Resp 18 07/29/20 09:27 BP 120/75 07/29/20 08:00 Pulse Ox 95 07/29/20 09:27 Discharge Plan Discharge Patient Disposition: Home Condition: Stable Prescriptions: New potassium chloride 10 mEq Tablet Extended Release 10 meq PO BID@ Qty: 60 RF: 0 tramadol 50 mg Tablet 50 mg PO Q8H PRN (Reason: pain) Qty: 10 RF: 0 benzonatate 100 mg Capsule 100 mg PO TID PRN (Reason: Cough) Qty: 10 RF: 0 pantoprazole 40 mg Tablet,Delayed Release (Dr/Ec) 40 mg PO BID Qty: 30 RF: 0 folic acid 1 mg Tablet 1 mg PO DAILY Qty: 30 RF: 0 Vitamin B-1 (mononitrate) 100 mg Tablet 100 mg PO DAILY Qty: 30 RF: 0 Continued albuterol sulfate 90 mcg/actuation HFA aerosol inhaler 2 puff inhalation Q6H PRN (Reason: shortness of breath or wheezing) Qty: 8.5 RF: 0 multivitamin Tablet 1 tab PO DAILY PRN (Reason: UNKNOWN) RF: 0 ibuprofen 200 mg Tablet 200 mg PO PRN RF: 0 furosemide 40 mg tablet 40 mg PO BID@ RF: 0 Discontinued potassium chloride 8 mEq capsule, extended release 8 meq PO BID@06,14 RF: 0 Discharge Orders: Discharge Order (Routine); Ordered 07/29/20 Ordered By: Rigoberto Basurto Referrals: Rosa M Morrison MD [Primary Care Provider] - 7-10 days Discharge Diet: Regular Discharge Activity: Resume usual activity Patient Instructions: Alcohol Abuse, Alcohol Withdrawal (GEN), Ascites (GEN) Activity Restrictions/Additional Instructions: Please follow-up with liver specialist as discussed in detail. It is important to maintain alcohol abstinence. Discharge Attestations Time Spent in Discharge Care*: greater than 30 min Specific Discharge Activities: educating patient, educating and/or supporting family/caregiver, discussing with case making machine operator/social workers/dc planners, documenting/other paperwork and evaluating patient/reviewing data Status at Discharge: Cognitive status at discharge: cognitively intact, Behavioral status at discharge: cooperative, Functional status at discharge: independent ambulation Overall status at discharge: patient is back to baseline Quality Metrics Clinical Quality Measures During this hospital stay, did patient experience: None Coding Level of Care Code Acute Board Hammer Operator for Chg Fwd Diagnoses Right upper quadrant abdominal pain R10.11 Anemia D64.9 Liver disease, chronic, due to alcohol K70.9 Chronic alcoholic liver disease K70.9 Acute hypokalemia E87.6 Hypercholesteremia E78.00 GERD (gastroesophageal reflux disease) K21.0 Esophagitis presence: with esophagitis Type 2 diabetes mellitus E11.9 Diabetes mellitus terminal block assembler insulin use: without terminal block assembler use Diabetes mellitus complication status: without complication Hypertension I10 Hypertension type: essential hypertension
--- NOTE | 2020-07-29 11:32 | US_ITS ---
WS: [id number] ULTRASOUND-GUIDED THERAPEUTIC AND DIAGNOSTIC PARACENTESIS Procedure, risks, and complications have been explained to the patient. Consent is obtained. Utilizing aseptic technique and 1% buffered lidocaine, a small dermatome was made through which a 5 F rench Yueh catheter was inserted. Approximately 3300 ml of clear, pale yellow peritoneal fluid was ob tained without difficulty. No complications encountered. Specimen collected for analysis as requested . US/US paracentesis abd w [id number] IMPRESSION: Uncomplicated paracentesis yielding 3300 ml of peritoneal fluid. Peritoneal fluid specimen collected for analysis as requested.
[2020-07-29 11:45] LABS: Glucose Point of Care 132 mg/dL (70-110)
[2020-07-29 12:00] VITALS: BP 114/69; PULSE 84; RESP 17; TEMP 36.9; O2SAT 99
[2020-07-29 13:46] VITALS: BP 114/69; PULSE 84; RESP 17; TEMP 36.9; O2SAT 99
== END 2020-07-29 13:46 | disposition home or self-care (01) | DRG 812 ==
LOC: ER 17:53 → MEDSURG 19:48
PROVIDERS: Emergency Medicine; Hospitalist; Admitting Provider Student in an Organized Health Care Education/Training Program; Emergency Provider Emergency Medicine; PCP Family Medicine; Visit Provider Student in an Organized Health Care Education/Training Program
DX: D50.9 Iron deficiency anemia, unspecified (principal); I10 Essential (primary) hypertension; E11.9 Type 2 diabetes mellitus without complications; F17.220 Nicotine dependence, chewing tobacco, uncomplicated; F10.20 Alcohol dependence, uncomplicated; K70.31 Alcoholic cirrhosis of liver with ascites; E78.5 Hyperlipidemia, unspecified; I51.7 Cardiomegaly; K21.00 Gastro-esophageal reflux disease with esophagitis, without bleeding; E78.00 Pure hypercholesterolemia, unspecified; E87.6 Hypokalemia
CPT/HCPCS: 36415; 36416; 36430; 49083; 74018; 74177; 80053; 80306; 80307; 80500; 81003; 82042; 82150; 82465; 82607; 82728; 82746; 82945; 82962; 82977; 83010; 83540; 83550; 83615; 83690; 83735; 83880; 83986; 84075; 84100; 84157; 84315; 84443; 84478; 84484; 84560; 85014; 85018; 85025; 85045; 85610; 85730; 86140; 86850; 86900; 86920; 87015; 87070; 87075; 87116; 87205; 87206; 87801; 87806; 89050; 93005; 96361; 96372; 96374; 99285; G0378; J1940; J2405; J3411; J3480; J7040; P9016; Q9967

== ENCOUNTER → 2020-08-06 09:36 | Outpatient (BNVA) | payer OTHER, SELFPAY | PROVIDERS: PCP Family Medicine; Visit Provider Family Medicine | DX: K70.9 Alcoholic liver disease, unspecified (principal); I50.9 Heart failure, unspecified; D64.9 Anemia, unspecified | CPT/HCPCS: 80053; 85007; 85027 ==

== ENCOUNTER → 2021-02-12 10:24 | Outpatient (BNVA) | payer OTHER, SELFPAY | PROVIDERS: PCP Family Medicine; Visit Provider Family Medicine | DX: I50.9 Heart failure, unspecified (principal); K25.9 Gastric ulcer, unspecified as acute or chronic, without hemorrhage or perforation; K70.9 Alcoholic liver disease, unspecified; E11.9 Type 2 diabetes mellitus without complications; Z09 Encounter for follow-up examination after completed treatment for conditions other than malignant neoplasm; D64.89 Other specified anemias; F10.21 Alcohol dependence, in remission; K25.0 Acute gastric ulcer with hemorrhage; K70.30 Alcoholic cirrhosis of liver without ascites; I85.10 Secondary esophageal varices without bleeding; I51.7 Cardiomegaly | CPT/HCPCS: 80053; 80061; 83036; 83880; 85025 ==

== ENCOUNTER → 2021-07-02 11:35 | Outpatient (BNVA) | payer BC, SELFPAY | PROVIDERS: PCP Family Medicine; Visit Provider Family Medicine | DX: K70.9 Alcoholic liver disease, unspecified (principal); K92.2 Gastrointestinal hemorrhage, unspecified | CPT/HCPCS: 80053; 85025; 85610 ==

== ENCOUNTER → 2021-08-11 15:01 | Outpatient (BNVA) | payer BC, SELFPAY | PROVIDERS: PCP Family Medicine; Visit Provider Family Medicine | DX: J06.9 Acute upper respiratory infection, unspecified (principal) | CPT/HCPCS: 71046 ==

== ENCOUNTER → 2021-09-22 12:10 | Outpatient (BNVA) | payer BC, SELFPAY | PROVIDERS: PCP Family Medicine; Visit Provider Family Medicine | DX: K76.9 Liver disease, unspecified (principal); G99.0 Autonomic neuropathy in diseases classified elsewhere | CPT/HCPCS: 80053; 82607; 82746; 84443; 85025 ==

== ENCOUNTER → 2021-11-12 10:28 | Outpatient (BNVA) | payer BC, SELFPAY | PROVIDERS: PCP Family Medicine; Visit Provider Family Medicine | DX: K70.9 Alcoholic liver disease, unspecified (principal); I50.9 Heart failure, unspecified | CPT/HCPCS: 80048; 85025 ==

== ENCOUNTER → 2021-11-21 10:57 | Outpatient (BNVA) | payer BC, SELFPAY | PROVIDERS: PCP Family Medicine; Referring Provider Family Medicine; Visit Provider Family Medicine | DX: I50.9 Heart failure, unspecified (principal) | CPT/HCPCS: 80048 ==

== ENCOUNTER → 2022-01-14 09:43 | Outpatient (BNVA) | payer BC, SELFPAY | PROVIDERS: PCP Family Medicine; Visit Provider Family Medicine | DX: K76.9 Liver disease, unspecified (principal); G99.0 Autonomic neuropathy in diseases classified elsewhere; K70.9 Alcoholic liver disease, unspecified; K25.9 Gastric ulcer, unspecified as acute or chronic, without hemorrhage or perforation; I50.9 Heart failure, unspecified; Z13.1 Encounter for screening for diabetes mellitus; R73.9 Hyperglycemia, unspecified; J44.9 Chronic obstructive pulmonary disease, unspecified; D64.89 Other specified anemias; K70.30 Alcoholic cirrhosis of liver without ascites; I85.10 Secondary esophageal varices without bleeding; F10.21 Alcohol dependence, in remission; K64.9 Unspecified hemorrhoids | CPT/HCPCS: 80053; 83036; 85025 ==

== ENCOUNTER → 2022-01-30 09:02 | Outpatient (BNVA) | payer BC, SELFPAY | PROVIDERS: PCP Family Medicine; Visit Provider Family Medicine | DX: E87.6 Hypokalemia (principal); D64.89 Other specified anemias; D64.9 Anemia, unspecified; I50.9 Heart failure, unspecified | CPT/HCPCS: 80048; 85025 ==

== ENCOUNTER → 2022-04-29 12:46 | Outpatient (BNVA) | payer BC, SELFPAY | PROVIDERS: PCP Family Medicine; Visit Provider Nurse Practitioner Family | DX: D64.9 Anemia, unspecified (principal); K70.9 Alcoholic liver disease, unspecified; I50.9 Heart failure, unspecified; E87.70 Fluid overload, unspecified; K70.30 Alcoholic cirrhosis of liver without ascites; I85.10 Secondary esophageal varices without bleeding; J01.00 Acute maxillary sinusitis, unspecified | CPT/HCPCS: 85018 ==

== ENCOUNTER 2022-04-30 10:22 | Day surgery (SDC) | payer BC, SELFPAY ==
[2022-04-29 12:48] VITALS: BMI 35.4
--- NOTE | 2022-04-30 10:34 | US_ITS ---
WS: [id number] ULTRASOUND-GUIDED THERAPEUTIC PARACENTESIS Procedure, risks, and complications have been explained to the patient. Consent is obtained. Utilizing aseptic technique and 1% buffered lidocaine, a small dermatome was made through which a 5 F rench Yueh catheter was inserted. Approximately 4600 ml of clear peritoneal fluid was obtained witho ut difficulty. No complications encountered. US/US paracentesis abd w [id number] IMPRESSION: Uncomplicated paracentesis yielding 4600 ml of peritoneal fluid.
[2022-04-30 10:52] VITALS: BP 164/103; PULSE 99; RESP 20; TEMP 36.3; O2SAT 97
== END 2022-04-30 12:01 | disposition home or self-care (01) ==
LOC: GILAB 10:26
PROVIDERS: PCP Family Medicine; Visit Provider Nurse Practitioner Family
PROC: (CPT 49082; principal; 2022-04-30 11:30)
DX: K70.9 Alcoholic liver disease, unspecified (principal)
CPT/HCPCS: 49083

== ENCOUNTER → 2022-05-04 12:04 | Outpatient (BNVA) | payer BC, SELFPAY | PROVIDERS: PCP Family Medicine; Visit Provider Family Medicine | DX: I50.9 Heart failure, unspecified (principal); K70.9 Alcoholic liver disease, unspecified; K76.9 Liver disease, unspecified; G99.0 Autonomic neuropathy in diseases classified elsewhere; D64.89 Other specified anemias; K70.30 Alcoholic cirrhosis of liver without ascites; I85.10 Secondary esophageal varices without bleeding; F10.21 Alcohol dependence, in remission; K70.31 Alcoholic cirrhosis of liver with ascites; Z09 Encounter for follow-up examination after completed treatment for conditions other than malignant neoplasm | CPT/HCPCS: 80053; 85025 ==

== ENCOUNTER → 2022-06-02 14:52 | Outpatient (BNVA) | payer BC, SELFPAY | PROVIDERS: PCP Family Medicine; Visit Provider Family Medicine | DX: E87.6 Hypokalemia (principal); I10 Essential (primary) hypertension; I50.9 Heart failure, unspecified; K70.9 Alcoholic liver disease, unspecified; D64.89 Other specified anemias; I86.1 Scrotal varices | CPT/HCPCS: 80048; 83735; 85025 ==

== ENCOUNTER → 2022-08-07 10:45 | Outpatient (BNVA) | payer BC, SELFPAY | PROVIDERS: PCP Emergency Medicine; Visit Provider Emergency Medicine | DX: R07.81 Pleurodynia (principal); S22.42XA Multiple fractures of ribs, left side, initial encounter for closed fracture; J18.9 Pneumonia, unspecified organism; X58.XXXA Exposure to other specified factors, initial encounter | CPT/HCPCS: 71101 ==

== ENCOUNTER → 2022-09-09 08:54 | Outpatient (BNVA) | payer BC, SELFPAY | PROVIDERS: PCP Family Medicine; Visit Provider Family Medicine | DX: I50.9 Heart failure, unspecified (principal); K70.9 Alcoholic liver disease, unspecified; Z13.220 Encounter for screening for lipoid disorders | CPT/HCPCS: 80053; 80061; 85025 ==

== ENCOUNTER 2022-09-17 20:41 | Emergency (ER) | payer BC, SELFPAY ==
[2022-09-17 20:45] VITALS: BP 141/88; PULSE 95; RESP 18; TEMP 36.9; O2SAT 97
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
[2022-09-17 21:30] VITALS: BP 128/86; PULSE 94; RESP 16; O2SAT 96
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
[2022-09-17 22:32] VITALS: BP 141/88; PULSE 93; RESP 16; O2SAT 96
== END 2022-09-17 22:36 | disposition home or self-care (01) ==
PROVIDERS: Emergency Provider Emergency Medicine; PCP Family Medicine
DX: Z04.1 Encounter for examination and observation following transport accident (principal); R07.89 Other chest pain; K80.20 Calculus of gallbladder without cholecystitis without obstruction; I10 Essential (primary) hypertension; E11.9 Type 2 diabetes mellitus without complications; Z87.891 Personal history of nicotine dependence
CPT/HCPCS: 70450; 71101; 71250; 73502; 74176; 99284

== ENCOUNTER → 2022-09-21 09:43 | Outpatient (BNVA) | payer BC, SELFPAY | PROVIDERS: PCP Family Medicine; Visit Provider Emergency Medicine | DX: R17 Unspecified jaundice (principal) | CPT/HCPCS: 80053; 85025 ==

== ENCOUNTER → 2022-10-01 11:47 | Outpatient (BNVA) | payer BC, SELFPAY | PROVIDERS: PCP Family Medicine; Visit Provider Family Medicine | DX: M25.551 Pain in right hip (principal) | CPT/HCPCS: 73523 ==

== ENCOUNTER → 2022-10-15 10:33 | Outpatient (BNVA) | payer BC, SELFPAY | PROVIDERS: PCP Family Medicine; Visit Provider Family Medicine | DX: F10.20 Alcohol dependence, uncomplicated (principal) | CPT/HCPCS: 80053 ==

== ENCOUNTER 2023-02-22 01:12 | Inpatient (IN) | payer BC, SELFPAY ==
[2023-02-22] VITALS (8 sets, daily range): BP systolic 115–158; BP diastolic 71–95; PULSE 95–108; RESP 17–20; TEMP 36.7–37.2; O2SAT 94–99; BMI 35.4
--- NOTE | 2023-02-22 01:39 | CTR_ITS ---
PROCEDURE INFORMATION: Exam: CT Abdomen And Pelvis With Contrast Exam date and time: 02/22/2023 1:54 AM Age: 52 years old Clinical indication: Other: Rectal bleed/tarry stools. Prior surgery; Surgery date: 6+ months; Surgery type: Ventral hernia repair. Patient HX: Rectal bleeding with tarry stools. History of cirrhosis. ; Additional info: Lower gi bleeding TECHNIQUE: Imaging protocol: Computed tomography of the abdomen and pelvis with contrast. Radiation optimization: All CT scans at this facility use at least one of these dose optimization techniques: automated exposure control; mA and/or kV adjustment per patient size (includes targeted exams where dose is matched to clinical indication); or iterative reconstruction. Contrast material: OMNI 350; Contrast volume: 100 ml; Contrast route: INTRAVENOUS (IV); REPORTING DATA: Count of CT and Cardiac NM exams in prior 12 months: This patient has received 2 known CTs and 0 known cardiac nuclear medicine studies in the 12 months prior to the current study. COMPARISON: 1. CT chest abdpel wo contrast 09/17/2022 9:[address] abdomen pelvis w con* [id number] 07/27/2020 7:07 PM RADIATION DOSE METRICS: Total DLP (mGy-cm): 1371.92 FINDINGS: Lungs: Lung bases are clear. Liver: Cirrhotic liver. At least a handful of small subcentimeter hypodense foci, not clearly seen on 07/27/2020, but too small to accurately characterize. Gallbladder and bile ducts: Cholelithiasis. No evidence of acute cholecystitis or biliary dilatation. Pancreas: Normal pancreas. No ductal dilation. Spleen: Chronic splenomegaly. Adrenal glands: Normal. No mass. Kidneys and ureters: Horseshoe kidney. No hydronephrosis or obstructive calculus. Stable 2 mm nonobstructive calculus in the right kidney. Stomach and bowel: Mild diffuse thickening of the colon, suggesting possible infectious/inflammatory colitis. No evidence of bowel obstruction. Mild sigmoid diverticulosis without evidence of diverticulitis. Appendix: Normal appendix. Intraperitoneal space: Ejtf-kh-qidremdg ascites. No free air. Vasculature: No abdominal aortic aneurysm or dissection. Portal vein and mesenteric vessels appear grossly patent. Lymph nodes: No adenopathy. Urinary bladder: Normal urinary bladder. Reproductive: Normal prostate gland. Bones/joints: Subacute right pubic rami fractures, new in comparison to 09/17/2022. No acute osseous abnormality or evidence of osseous metastatic disease. Soft tissues: Right inguinal hernia containing peritoneal fat and ascitic fluid. Mild diffuse anasarca. CT/CT abdomen pelvis w con* [id number] IMPRESSION: 1. Mild diffuse thickening of the colon, suggesting possible infectious/inflammatory colitis. 2. Vwxm-ki-ywczxwow ascites. 3. Cirrhotic liver. 4. At least a handful of small subcentimeter hypodense foci in the liver, not clearly seen on 07/27/2020, but too small to accurately characterize. Follow-up MRI in 3-6 months is recommended (or earlier if warranted by the patient's specific clinical circumstances). (Reference: Marita) 5. Chronic splenomegaly. 6. Cholelithiasis. No evidence of acute cholecystitis or biliary dilatation. 7. Horseshoe kidney. 8. Stable 2 mm nonobstructive calculus in the right kidney. 9. Mild sigmoid diverticulosis without evidence of diverticulitis. 10. Right inguinal hernia containing peritoneal fat and ascitic fluid. 11. Subacute right pubic rami fractures, new in comparison to 09/17/2022. REFERENCES: Marita MERCHANT, et al. Management of Incidental Liver Lesions on CT: A White Paper of the ACR Incidental Findings Committee. J Am Cristiano Radiol. 2017;14(11):9500-5747.
[2023-02-22 01:50] LABS: Basophils % 0.9 %; Eosinophils # 0.3 10^3/uL (0.0-0.8); Hematocrit 28.5 % (37-53); Lymphocytes # 0.4 10^3/uL (0.8-4.8); Lymphocytes % 8.6 %; Mean Corpuscular HGB Conc 30.9 g/dL (30-55); Mean Corpuscular Hemoglobin 28.5 pg (27-33); Mean Corpuscular Volume 92.2 fl (82-101); Mean Platelet Volume 10.3 fL (7.4-10.4); Monocytes # 0.6 10^3/uL (0.2-0.9); Monocytes % 13.2 %; Neutrophils # 3.09 10^3/uL (1.8-7.7); Neutrophils % 70.1 %; Nucleated Red Blood Cells % 0 %; Platelet Count 114 10^3/cmm (157-399); Red Blood Count 3.09 10^6/uL (3.85-5.65); Red Cell Distribution Width 18.5 % (12.1-15.1); White Blood Count 4.41 10^3/uL (3.29-11.43)
[2023-02-22] MEDS: iohexol 350 mg/mL 500 mL Btl (per mL) IV (01:55)
[2023-02-22 02:04] LABS: INR 1.74 (0.8-1.2); Partial Thromboplastin Time 37.9 SECONDS (23.9-36.7)
[2023-02-22 02:12] LABS: Alanine Aminotransferase 32 U/L (0-41); Alkaline Phosphatase 302 U/L (40-130); Anion Gap 11.4 (5-19); Aspartate Amino Transferase 84 U/L (0-40); Blood Urea Nitrogen 7 mg/dL (6-20); C Reactive Protein 43.2 mg/L (0.0-4.9); Calcium 7.6 mg/dL (8.5-10.5); Carbon Dioxide 28 mmol/L (22-29); Chloride 100 mmol/L (98-107); Creatinine Clr Calc Pharmacy 150.0973; Globulin 3.2 g/dL (1.3-4.6); Glomerular Filtration Rate 118.4 mL/min (90-130); Glucose 125 mg/dL (65-115); Osmolality Calculated 283 mOsm/kg (285-295); Sodium 137 mmol/L (136-145); Total Protein 6.2 g/dL (6.6-8.7)
[2023-02-22 02:16] LABS: Potassium 2.4 mmol/L (3.5-5.1); Total Bilirubin 7.4 mg/dL (0.15-1.2)
--- NOTE | 2023-02-22 02:26 | ED_ITS ---
HPI - GI Bleed General: Chief complaint: GI Bleed Stated complaint: blood in stool Time Seen by Provider: 02/22/23 01:31 History of Present Illness: 52-year-old male with a history of chronic liver disease/cirrhosis, and also a history of hemorrhoids. He presents with bright red rectal bleeding since 2 PM yesterday. No belly pain. No fever. No vomiting. He states that he had an episode of diarrhea prior. Associated symptoms: Denies abdominal pain, fever(s), headache(s), nausea, rash or vomiting Review of Systems Const: Denies: fever(s) ENMT: Denies: throat pain Card: Denies: chest pain or palpitations Resp: Denies: dyspnea or productive cough GI: Reports: diarrhea and hematochezia; Denies: abdominal pain, nausea or vomiting Skin/Breast: Denies: rash Neuro: Denies: headache(s) [facility] ED PFSH: Medical History Acute GI bleeding Alcoholism, chronic Anemia due to acute blood loss Cardiomegaly GERD (gastroesophageal reflux disease) History of alcoholism Hypercholesteremia Hypertension Liver disease, chronic, due to alcohol Type 2 diabetes mellitus Social History Smoking and tobacco status: former smoker Quit status (tobacco): not considering quitting Second hand smoke exposure: No Alcohol intake: current Alcohol intake frequency: 0-2 Drinks per Day Substance/Drug Use: never Current gender identity: Male Physical Exam Const: COMMON NORMALS: no acute distress GENERAL APPEARANCE: cooperative; not ill appearing and not frail appearing HENMT: COMMON NORMALS: normocephalic, atraumatic and Normal external nose present HEAD & SCALP: normocephalic and atraumatic FACE & SINUS: normal facial exam and face symmetric NOSE: Normal external nose present Eye: COMMON NORMALS: Equal, round and reactive pupils present and EOMs intact bilaterally PUPIL: Yes Equal, round and reactive pupils present Neck/C-Spine: GENERAL: Yes trachea midline Chest: CHEST: Yes Symmetrical chest wall rise Resp: COMMON NORMALS: normal respiratory effort, No retractions, No use of accessory muscles and clear to auscultation bilaterally AUSCULTATION: clear to auscultation bilaterally Cardio: COMMON NORMALS: regular rate and regular rhythm RATE: regular rate RHYTHM: regular rhythm GI: INSPECTION: Yes abdominal distension PALPATION: No Tenderness to palpation present (GI) Extremity: GENERAL: Yes edema Neuro: YARON COMA SCALE: document GCS findings Yaron coma scale eye opening: Spontaneous [place] coma scale verbal response: Orientated Yaron coma scale motor response: Obey commands [place] coma scale total score: 15 SENSORY EXAM: Yes extremities (intact) Psych: COMMON NORMALS: speech normal SPEECH: Yes normal speech Skin: COMMON NORMALS: no rashes or lesions noted GENERAL SKIN EXAM: no rashes or lesions noted Course Vital Signs: Vital signs: Vital Signs Temperature 98.3 F 02/22/23 03:49 Pulse Rate 98 02/22/23 03:49 Respiratory Rate 18 02/22/23 03:49 Blood Pressure 131/78 02/22/23 03:49 Pulse Oximetry 95 02/22/23 03:49 Oxygen Delivery Me thod Room Air 02/22/23 03:49 MDM - GI Bleed Medical Decision Making 52-year-old gentleman with a history of cirrhosis. He presents with bloody bowel movements. This is bright red blood. No further blood per rectum here. On exam, he appeared to have a small fissure at the 9 o'clock position. No active bleeding. He is pancytopenic. Hemoglobin is 9. Platelet count is 114. Potassium is critical at 2.4. CT of the belly is performed showing mild diffuse thickening of the colon suggesting infectious or inflammatory colitis. He is treated with Cipro and Flagyl. IV fluid bolus. He will be admitted considering hypokalemia with borderline hemoglobin colitis findings on CT. Hospitalist will see the patient in the ER. Lab Data 02/22/23 01:40 02/22/23 01:40 Radiology Impressions Abdomen/Pelvis CT 02/22/23 01:39 IMPRESSION: 1. Mild diffuse thickening of the colon, suggesting possible infectious/inflammatory colitis. 2. Ncad-jn-hekkytjg ascites. 3. Cirrhotic liver. 4. At least a handful of small subcentimeter hypodense foci in the liver, not clearly seen on 07/27/2020, but too small to accurately characterize. Follow-up MRI in 3-6 months is recommended (or earlier if warranted by the patient's specific clinical circumstances). (Reference: Marita) 5. Chronic splenomegaly. 6. Cholelithiasis. No evidence of acute cholecystitis or biliary dilatation. 7. Horseshoe kidney. 8. Stable 2 mm nonobstructive calculus in the right kidney. 9. Mild sigmoid diverticulosis without evidence of diverticulitis. 10. Right inguinal hernia containing peritoneal fat and ascitic fluid. 11. Subacute right pubic rami fractures, new in comparison to 09/17/2022. REFERENCES: Marita MERCHANT, et al. Management of Incidental Liver Lesions on CT: A White Paper of the ACR Incidental Findings Committee. J Am Cristiano Radiol. 2017;14(11):5528-6616. Laboratory Results WBC 4.41 10^3/uL (3.29-11.43) 02/22/23 01:40 RBC 3.09 10^6/uL (3.85-5.65) L 02/22/23 01:40 Hgb 8.80 g/dL (11.27-16.99) L 02/22/23 01:40 Hct 28.5 % (37-53) L 02/22/23 01:40 MCV 92.2 fl (82-101) 02/22/23 01:40 MCH 28.5 pg (27-33) 02/22/23 01:40 MCHC 30.9 g/dL (30-55) 02/22/23 01:40 RDW 18.5 % (12.1-15.1) H 02/22/23 01:40 Plt Count 114 10^3/cmm (157-399) L 02/22/23 01:40 MPV 10.3 fL (7.4-10.4) 02/22/23 01:40 Neut % (Auto) 70.1 % 02/22/23 01:40 Lymph % (Auto) 8.6 % 02/22/23 01:40 [place] % (Auto) 13.2 % 02/22/23 01:40 Eos % (Auto) 7.0 % 02/22/23 01:40 Baso % (Auto) 0.9 % 02/22/23 01:40 Neut # (Auto) 3.09 10^3/uL (1.8-7.7) 02/22/23 01:40 Lymph # (Auto) 0.4 10^3/uL (0.8-4.8) L 02/22/23 01:40 [place] # (Auto) 0.6 10^3/uL (0.2-0.9) 02/22/23 01:40 Eos # (Auto) 0.3 10^3/uL (0.0-0.8) 02/22/23 01:40 Baso # (Auto) 0.0 10^3/uL (0.0-0.1) 02/22/23 01:40 Nucleated RBC % (auto) 0 % 02/22/23 01:40 Nucleated RBCs # 0.0 /100WBC 02/22/23 01:40 PT 21.00 SECONDS (12.1-14.9) H 02/22/23 01:40 INR 1.74 (0.8-1.2) H 02/22/23 01:40 APTT 37.9 SECONDS (23.9-36.7) H 02/22/23 01:40 Sodium 137 mmol/L (136-145) 02/22/23 01:40 Potassium 2.4 mmol/L (3.5-5.1) L* 02/22/23 01:40 Chloride 100 mmol/L (98-107) 02/22/23 01:40 Carbon Dioxide 28 mmol/L (22-29) 02/22/23 01:40 Anion Gap 11.4 (5-19) 02/22/23 01:40 BUN 7 mg/dL (6-20) 02/22/23 01:40 Creatinine 0.7 mg/dL (0.7-1.2) 02/22/23 01:40 GFR Calculation 118.4 mL/min (90-130) 02/22/23 01:40 Glucose 125 mg/dL (65-115) H 02/22/23 01:40 Calculated Osmolality 283 mOsm/kg (285-295) L 02/22/23 01:40 Calcium 7.6 mg/dL (8.5-10.5) L 02/22/23 01:40 Total Bilirubin 7.4 mg/dL (0.15-1.2) H* 02/22/23 01:40 AST 84 U/L (0-40) H 02/22/23 01:40 ALT 32 U/L (0-41) 02/22/23 01:40 Alkaline Phosphatase 302 U/L (40-130) H 02/22/23 01:40 C-Reactive Protein 43.2 mg/L (0.0-4.9) H 02/22/23 01:40 Total Protein 6.2 g/dL (6.6-8.7) L 02/22/23 01:40 Albumin 3.0 g/dL (3.5-5.2) L 02/22/23 01:40 Globulin 3.2 g/dL (1.3-4.6) 02/22/23 01:40 Discharge Plan Discharge Patient Disposition: Admitted As Inpatient Admit Provider: Apryl Little Clinical Impression: Colitis Condition: Fair Coding Level of Care Code ED Explosives 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
[2023-02-22] MEDS: potassium chloride oral liq 20 mEq/15 mL UDC 40 MEQ PO (02:43)
[2023-02-22] MEDS: potassium chloride premix 100 ML 50 MEQ IV (02:53)
[2023-02-22] MEDS: metroNIDAZOLE IV 500 MG/100 ML PREMIX 100 MG IV ×3 (02:59→18:00)
[2023-02-22] MEDS: ciprofloxacin 400 MG/200 ML PREMIX 200 MG IV ×2 (02:59→15:45)
--- NOTE | 2023-02-22 04:30 | PM.HP ---
Providers/Chief Complaint Admitting Physician: Apryl Little MD Primary Care Provider: Rosa M Morrison MD Chief Complaint: blood in stool History of Present Illness Tonny Miller Jr is a 52 year old male with history of alcohol abuse liver cirrhosis esophageal varices ascites s/p paracentesis x2 last time 8 months ago, last EGD done 3 months ago and colonoscopy 6 months ago, iron deficiency anemia presented with complaint of bright red blood per rectum and loose bowels x8 since 2 days. He also reported to have crampy abdominal pain 8 x 10 diffuse nonradiating no associated or relieving factors .he denies any fever cold cough nausea vomiting chest pain shortness of breath or urinary complaints. He had outside food 2 days ago. No history of recent travel or sick contact Review of Systems Narrative: As per HPI Medications/Allergies Home Medications Medication Instructions Recorded Confirmed Last Taken Type multivitamin 1 tab PO DAILY 07/27/20 10/14/22 04/30/22 History simethicone 250 mg capsule (Gas 250 mg PO DAILY PRN abdominal 09/16/20 10/14/22 04/30/22 Rx Relief (simethicone)) distention 30 days #30 caps thiamine mononitrate (vit B1) 100 100 mg PO DAILY #30 tabs 06/03/21 10/14/22 04/30/22 Rx mg tablet (Vitamin B-1 (mononitrate)) ferrous gluconate 324 mg (37.5 mg 324 mg PO BID 10/28/21 10/14/22 04/30/22 History iron) tablet mecobalamin (vitamin B12) 5,000 5,000 mcg PO DAILY 10/28/21 10/14/22 04/30/22 History mcg lozenge furosemide 20 mg tablet 40 mg PO DAILY PRN swelling 90 04/28/22 10/14/22 04/29/22 Rx days #120 tabs potassium chloride 10 mEq 40 meq PO BID 30 days #240 tabs 05/04/22 10/14/22 Unknown Rx tablet,extended release spironolactone 50 mg tablet 50 mg PO BID 90 days #180 tabs 09/09/22 10/14/22 Unknown Rx Allergies Allergy/AdvReac Type Severity Reaction Status Date / Time No Known Allergies Allergy Verified 10/14/22 15:17 PFSH Acute PFSH: Medical History Acute GI bleeding Alcoholism, chronic Anemia due to acute blood loss Cardiomegaly GERD (gastroesophageal reflux disease) History of alcoholism Hypercholesteremia Hypertension Liver disease, chronic, due to alcohol Type 2 diabetes mellitus Social History Smoking and tobacco status: former smoker Quit status (tobacco): not considering quitting Second hand smoke exposure: No Alcohol intake: current Alcohol intake frequency: 0-2 Drinks per Day Substance/Drug Use: never Current gender identity: Male Vitals/I&O/Wt Last Vital Signs Temp 98.3 F 02/22/23 03:49 Pulse 98 02/22/23 03:49 Resp 18 02/22/23 03:49 BP 131/78 02/22/23 03:49 Pulse Ox 95 02/22/23 03:49 O2 Del Method Room Air 02/22/23 03:49 02/21/23 02/21/23 02/22/23 14:59 22:59 06:59 Intake Total 300 / 300 Balance 300 / 300 Weight last 48 hrs Weight 108.862 kg Physical Exam Narrative: He is alert awake oriented x3 not in acute distress Chest clear to auscultation bilaterally Cardiovascular normal heart sounds regular rhythm Abdomen firm distended nontender hyperactive bowel sounds present Extremities bilateral 2+ lower extremity edema present Data 02/22/23 01:40 02/22/23 01:40 CT Abd/Pel: Radiologist's impression: MPRESSION: 1. ? Mild diffuse thickening of the colon, suggesting possible infectious/inflammatory colitis. 2. ? Bmnl-qx-qeagfhhm ascites. 3. ? Cirrhotic liver. 4. ? At least a handful of small subcentimeter hypodense foci in the liver, not clearly seen on 07/27/2020, but too small to accurately characterize. Follow-up MRI in 3-6 months is recommended (or earlier if warranted by the patient's specific clinical circumstances). (Reference: Marita) 5. ? Chronic splenomegaly. 6. ? Cholelithiasis. No evidence of acute cholecystitis or biliary dilatation. 7. ? Horseshoe kidney. 8. ? Stable 2 mm nonobstructive calculus in the right kidney. 9. ? Mild sigmoid diverticulosis without evidence of diverticulitis. 10. ? Right inguinal hernia containing peritoneal fat and ascitic fluid. 11. ? Subacute right pubic rami fractures, new in comparison to 09/17/2022. ? A&P Assessment and plan (1) Colitis: (2) GI bleeding: Plan 52-year-old male with history of alcohol abuse alcoholic liver cirrhosis iron deficiency anemia esophageal varices presented with complaint of bright red blood per rectum , diarrhea and abdominal pain, secondary to acute colitis also leading to hematochezia Will give IV ciprofloxacin 400 mg every 12 hours IV metronidazole 500 mg every 8 hours IV fluids normal saline at 60 mL/h Lactobacillus 1 Capsule Twice a Day Elevated INR bilirubin thrombocytopenia consistent with liver cirrhosis. Stable for now. Iron deficiency anemia combined with anemia of chronic disease secondary to liver cirrhosis stable for now. Resume home medications IV pantoprazole 40 mg every 12 hours for stress ulcer prophylaxis Intermittent compression stockings for DVT prophylaxis He is full code for now Attestations Medical Necessity Statement*: He needs continued hospitalization more than 2 midnights for management of acute and diffuse colitis with IV antibiotics and further work-up for GI bleed Time Spent in Patient Care: 30-minute Coding Level of Care Code Acute Code for [facility] Diagnoses Colitis K52.9 GI bleeding K92.2 Time Spent (min) 30
[2023-02-22] MEDS: pantoprazole 40 mg SDV IVP ×2 (05:20→17:29)
[2023-02-22] MEDS: sodium chloride 0.9% 1,000 ML 60 ML IV (05:20)
--- NOTE | 2023-02-22 07:00 | ECG_ITS ---
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 Measurements Intervals [place] Rate: 99 P: 21 WI: 167 QRS: 64 QRSD: 95 T: 31 QT: 331 QTc: 426 Interpretive Statements SINUS RHYTHM NONSPECIFIC ST & T-WAVE ABNORMALITY No previous ECG available for comparison Electronically Signed On 02-22-2023 16:04:30 CDT by Darryl Sorto M.D. [id number]
[2023-02-22] MEDS: potassium chloride ER 10 mEq Tablet 40 MEQ PO ×2 (08:06→17:24)
[2023-02-22] MEDS: thiamine 100 mg Tablet PO (08:07)
[2023-02-22] MEDS: multivitamin therapeutic Tablet 1 TAB PO (08:07)
[2023-02-22] MEDS: spironolactone 25 mg Tablet 50 MG PO ×2 (08:07→17:24)
[2023-02-22] MEDS: lactobacillus 1 Tablet 1 TAB PO ×2 (08:07→17:24)
--- NOTE | 2023-02-22 09:23 | PC.PHAR ---
pt states he takes care of his own medications-pt states he takes kcl and lasix prn-pt states he stop taking spironolactone 50mg bid a month ago ext shows last filled 01/19/23 30d/s rx has refills-pt states he takes no medications daily states he only takes meds prn except for his multivitamin takes three times a week-notes are made in the pharmacy comments
[2023-02-22 09:55] LABS: Basophils # 0.1 10^3/uL (0.0-0.1); Basophils % 1.1 %; Eosinophils # 0.2 10^3/uL (0.0-0.8); Eosinophils % 5.3 %; Hematocrit 25.9 % (37-53); Lymphocytes # 0.4 10^3/uL (0.8-4.8); Lymphocytes % 9.3 %; Mean Corpuscular HGB Conc 30.9 g/dL (30-55); Mean Corpuscular Hemoglobin 28.2 pg (27-33); Mean Corpuscular Volume 91.2 fl (82-101); Mean Platelet Volume 10.7 fL (7.4-10.4); Monocytes # 0.6 10^3/uL (0.2-0.9); Monocytes % 13.2 %; Neutrophils % 70.7 %; Nucleated Red Blood Cells % 0 %; Platelet Count 107 10^3/cmm (157-399); Red Blood Count 2.84 10^6/uL (3.85-5.65); Red Cell Distribution Width 18.4 % (12.1-15.1); White Blood Count 4.53 10^3/uL (3.29-11.43)
[2023-02-22 10:12] LABS: Alanine Aminotransferase 27 U/L (0-41); Albumin Level 2.8 g/dL (3.5-5.2); Alkaline Phosphatase 256 U/L (40-130); Anion Gap 9.2 (5-19); Aspartate Amino Transferase 72 U/L (0-40); Blood Urea Nitrogen 7 mg/dL (6-20); Calcium 7.3 mg/dL (8.5-10.5); Carbon Dioxide 27 mmol/L (22-29); Chloride 102 mmol/L (98-107); Creatinine Clr Calc Pharmacy 150.0973; Globulin 2.5 g/dL (1.3-4.6); Glomerular Filtration Rate 118.4 mL/min (90-130); Glucose 144 mg/dL (65-115); Osmolality Calculated 281 mOsm/kg (285-295); Potassium 3.2 mmol/L (3.5-5.1); Sodium 135 mmol/L (136-145); Total Protein 5.3 g/dL (6.6-8.7)
[2023-02-22 10:18] LABS: Total Bilirubin 7.4 mg/dL (0.15-1.2)
--- NOTE | 2023-02-22 10:36 | P.PN_ITS ---
Subjective Subjective: No abdominal pain. No nausea or vomiting. Additional blood in stool this morning. Soft stool. Recurrent episodes of bright red blood per stool in the past, not a clear reason identified per patient, states that possibly hemorrhoids. Discussed also findings of colitis appearance on CT. Discussed consideration of further steps, including continuation of antibiotic, possibility of infectious colitis, but other colitis possible as well, possibly inflammatory. Consideration of endoscopic evaluation and biopsy, although with risk involved given inflammation, higher chance of adverse effect, perforation. Discussed with him and his spouse surgery consultation. He does not take any blood thinners or aspirin. Vitals/I&O/Wt Last Vital Signs Temp 98.0 F 02/22/23 08:00 Pulse 102 H 02/22/23 08:00 Resp 17 02/22/23 08:00 BP 119/71 02/22/23 08:00 Pulse Ox 95 02/22/23 08:00 O2 Del Method Room Air 02/22/23 05:02 02/21/23 02/22/23 02/22/23 22:59 06:59 14:59 Intake Total 400 / 400 360 / 360 Balance 400 / 400 360 / 360 Weight last 48 hrs Weight 108.862 kg Physical Exam Const: COMMON NORMALS: patient oriented x3 and alert GENERAL APPEARANCE: cooperative ORIENTATION/CONSCIOUSNESS: Yes awake HENMT: COMMON NORMALS: oropharynx normal Neck/C-Spine: COMMON NORMALS: no JVD Resp: COMMON NORMALS: normal respiratory effort and clear to auscultation b ilaterally AUSCULTATION: clear to auscultation bilaterally Cardio: COMMON NORMALS: no JVD, regular rhythm, S1 normal heart sound present, S2 normal heart sound present and No murmurs present (Cardio) RHYTHM: regular rhythm HEART SOUNDS: S1 normal heart sound present and S2 normal heart sound present GI: COMMON NORMALS: Normal to inspection, nondistended, normoactive bowel sounds present, Soft to palpation and non-tender INSPECTION: Yes abdominal distension PALPATION: Yes Soft to palpation Extremity: COMMON NORMALS: no joint enlargement GENERAL: Yes edema (2+) Neuro: COMMON NORMALS: patient oriented x3 and moves all extremities SENSORIUM/ORIENTATION: Yes alert Skin: COMMON NORMALS: no rashes or lesions noted GENERAL SKIN EXAM: no rashes or lesions noted Data 02/22/23 09:40 02/22/23 09:40 A&P Assessment and plan (1) Colitis: Noted mild colitis-like appearance on CT. Discussed with his and him consideration of possibly infectious versus inflammatory colitis. Noted bright red blood per rectum. Again few bloody bowel movements today. Soft stool. Oth erwise no leukocytosis, afebrile, no abdominal pain. Requesting stool studies, bleeding, parasites, and also CRP, ESR. Discussed with him also regarding surgical consultation. Consideration risk versus benefits of endoscopic evaluation. For now continue Cipro, Flagyl. Clear liquid diet. Stop IV fluid due to fluid overload. Discussed with surgery. (2) GI bleeding: Recurrent GI bleeding, currently some evidence of colitis. Unclear if infectious or inflammatory. As above. Recheck CBC, noted anemia compared to back in September, currently down to 8 on recheck. Sinus tachycardia 102. Requested 2 units RBC to be held for him. Recheck blood counts again this afternoon. At risk of severe/life-threatening anemia. Noted thrombocytopenia, platelets 107. He is not on any blood thinners or antiplatelets. History of recurrent GI bleeding, iron deficiency anemia. On iron at home. Current INR 1.74. Not on anticoagulation. Cannot exclude component of vitamin K deficiency. We will give him a dose of vitamin K. (3) Hypokalemia: Severe hypokalemia, on diuretics, received potassium replacement. Repeat chemistry requested. Plan 52-year-old male with history of alcohol abuse alcoholic liver cirrhosis iron deficiency anemia esophageal varices presented with complaint of bright red blood per rectum , diarrhea and abdominal pain, secondary to acute colitis also leading to hematochezia Liver cirrhosis, fluid overload: Continue spironolactone. Stop IV fluid. Recheck potassium level. Elevated INR bilirubin thrombocytopenia consistent with liver cirrhosis. Follow-up chemistry with liver parameters. Stable for now. IV pantoprazole 40 mg every 12 hours for stress ulcer prophylaxis Intermittent compression stockings for DVT prophylaxis Attestations Medical Necessity Statement*: Admission for assessment management of GI bleeding, colitis, hypokalemia, fluid overload in a gentleman with underlying liver cirrhosis. Diagnoses Colitis K52.9 GI bleeding K92.2 Hypokalemia E87.6
[2023-02-22] MEDS: bisacodyl 5 mg Tablet 40 MG PO (10:50)
[2023-02-22] MEDS: peg /e-lyte soln 4,000 mL Btl 4000 ML PO (10:51)
[2023-02-22 10:56] LABS: Erythrocyte Sedimentation Rate 16 mm/hr (0-10)
[2023-02-22 11:05] LABS: C Reactive Protein 36.8 mg/L (0.0-4.9)
[2023-02-22] MEDS: phytonadione (ADULT) 10 mg/mL Ampule 1 mL 5 MG PO (11:26)
[2023-02-22] MEDS: ondansetron 2 mg/ML SDV 2 mL 4 MG IVP (11:35)
[2023-02-22] MEDS: lidocaine 1% 5 ML in potassium chloride premix 100 ML 26.25 ML IV (11:35)
[2023-02-22] MEDS: FUROsemide 20 mg Tablet PO (11:35)
[2023-02-22 12:01] LABS: Basophils # 0.1 10^3/uL (0.0-0.1); Eosinophils # 0.3 10^3/uL (0.0-0.8); Hematocrit 28.9 % (37-53); Lymphocytes # 0.4 10^3/uL (0.8-4.8); Lymphocytes % 8.5 %; Mean Corpuscular HGB Conc 30.4 g/dL (30-55); Mean Corpuscular Hemoglobin 28.2 pg (27-33); Mean Corpuscular Volume 92.6 fl (82-101); Mean Platelet Volume 10.2 fL (7.4-10.4); Monocytes # 0.7 10^3/uL (0.2-0.9); Monocytes % 14.3 %; Neutrophils # 3.46 10^3/uL (1.8-7.7); Neutrophils % 69.8 %; Nucleated Red Blood Cells % 0 %; Platelet Count 115 10^3/cmm (157-399); Red Blood Count 3.12 10^6/uL (3.85-5.65); Red Cell Distribution Width 18.4 % (12.1-15.1); White Blood Count 4.96 10^3/uL (3.29-11.43)
--- NOTE | 2023-02-22 13:07 | P.CONIM_ITS ---
Providers/Reason For Consult Consulting Physician/Specialty*: Dr. Tom Blanton, DO/General surgery Reason for Consult*: Hematochezia Attending Physician: Joao Willams Primary Care Provider: Rosa M Morrison MD History of Present Illness History of Present Illness Tonny Miller Jr is a 52 year old male presented to the hospital with crampy abdominal pain. His last colonoscopy was 6 months ago. He has been having bright red blood per rectum. His pain is diffuse and constant. Palpation makes pain worse. Nothing makes pain better. CT of the abdomen pelvis shows a diffuse colitis. Denies any nausea or vomiting Review of Systems General: Reports: 10 or more systems reviewed and unremarkable except in HPI and below Medications/Allergies Home Medications Medication Instructions Recorded Confirmed Last Taken Type multivitamin 1 tab PO .THREE TIMES A WEEK 07/27/20 02/22/23 04/30/22 History furosemide 20 mg tablet 40 mg PO DAILY PRN swelling 90 04/28/22 02/22/23 02/20/23 Rx days #120 tabs spironolactone 50 mg tablet 50 mg PO BID 90 days #180 tabs 09/09/22 02/22/23 1 Month Ago Rx ~01/22/23 pt states stop takin L.acidophil-L.casei-B.bifid-B.longum-FOS 1 cap PO DAILY PRN unknown 02/22/23 02/22/23 Unknown History 2 billion cell-50 mg capsule (Probiotic Blend) albuterol sulfate 90 mcg/actuation 2 puff inhalation QID PRN 02/22/23 02/22/23 Unknown History aerosol inhaler Shortness Of Breath cyanocobalamin (vitamin B-12) 5,000 mcg sublingual DAILY PRN 02/22/23 02/22/23 Unknown History 5,000 mcg sublingual tablet unknown (Vitamin B-12) ferrous sulfate 325 mg (65 mg 325 mg PO DAILY PRN unknown 02/22/23 02/22/23 Unknown History iron) tablet (iron) potassium chloride 10 mEq 20 - 40 meq PO BID PRN when takes 02/22/23 02/22/23 02/20/23 History tablet,extended release lasix 20 meq simethicone 125 mg capsule (Gas-X 125 - 250 mg PO DAILY PRN 02/22/23 02/22/23 Unknown History Extra Strength) Abdominal Distention thiamine mononitrate (vit B1) 100 100 mg PO DAILY PRN unknown 02/22/23 02/22/23 Unknown History mg tablet (Vitamin B-1 (mononitrate)) Allergies Allergy/AdvReac Type Severity Reaction Status Date / Time No Known Allergies Allergy Verified 02/22/23 09:23 Current Medications Generic Name Dose Route Start Last Admin Trade Name aMryse PRN Reason Stop Dose Admin Furosemide 20 mg 02/22/23 11:16 02/22/23 11:35 Furosemide 20 Mg Tablet PO 20 mg DAILY PRN Administration EDEMA Metronidazole 500 mg in 100 mls @ 100 mls/hr 02/22/23 11:00 02/22/23 11:56 Flagyl Iv IV Infused Q8H CONSTANCE Infusion Protocol Lidocaine HCl 5 ml/ Potassium 105 mls @ 26.25 mls/hr 02/22/23 11:18 02/22/23 11:35 Chloride IV 02/22/23 15:17 26.25 mls/hr ONCE ONE Administration Lactobacillus Acidophilus 1 tab 02/22/23 09:00 02/22/23 08:07 Lactobacillus 1 Tablet PO 1 tab BID CONSTANCE Administration Multivitamins Therapeutic 1 tab 02/22/23 09:00 02/22/23 08:07 Multivitamin Therapeutic Tablet PO 1 tab DAILY CONSTANCE Administration Non-Formulary Medication 5,000 mcg 02/22/23 09:00 02/22/23 08:07 Mecobalamin (Vitamin B12) PO Not Given DAILY CONSTANCE Ondansetron HCl 4 mg 02/22/23 11:18 02/22/23 11:35 Ondansetron 2 Mg/Ml Sdv 2 Ml IVP 4 mg Q4H PRN Administration NAUSEA AND VOMITING Pantoprazole Sodium 40 mg 02/22/23 05:00 02/22/23 05:20 Pantoprazole 40 Mg Sdv IVP 40 mg Q12H CONSTANCE Administration Potassium Chloride 40 meq 02/22/23 09:00 02/22/23 08:06 Potassium Chloride Er 10 Meq Tablet PO 40 meq BID CONSTANCE Administration Spironolactone 50 mg 02/22/23 09:00 02/22/23 08:07 Spironolactone 25 Mg Tablet PO 50 mg BID CONSTANCE Administration Thiamine Mononitrate 100 mg 02/22/23 09:00 02/22/23 08:07 Thiamine 100 Mg Tablet PO 100 mg DAILY CONSTANCE Administration PFSH Acute PFSH: Medical History Acute GI bleeding Alcoholism, chronic Anemia due to acute blood loss Cardiomegaly GERD (gastroesophageal reflux disease) History of alcoholism Hypercholesteremia Hypertension Liver disease, chronic, due to alcohol Type 2 diabetes mellitus Social History Smoking and tobacco status: former smoker Quit status (tobacco): not considering quitting Second hand smoke exposure: No Alcohol intake: current Alcohol intake frequency: 0-2 Drinks per Day Substance/Drug Use: never Current gender identity: Male Vitals/I&O/Wt Last Vital Signs Temp 98.7 F 02/22/23 12:00 Pulse 97 02/22/23 12:00 Resp 17 02/22/23 12:00 BP 126/78 02/22/23 12:00 Pulse Ox 97 02/22/23 12:00 O2 Del Method Room Air 02/22/23 05:02 02/21/23 02/22/23 02/22/23 22:59 06:59 14:59 Intake Total 400 / 400 819 / 819 Balance 400 / 400 819 / 819 Weight last 48 hrs Weight 240 lb Physical Exam Narrative: General : Patient is well developed , no acute distress, oriented x3 Head : Normal cephalic, a-traumatic. Ears : Pinnae and external canal are normal. Hearing is normal. Eyes : PERRLA, Sclera and injection are normal. No conjunctival discharge. Nose : Mucous membranes are without erythema. Throat : buccal mucosa is normal, gums are without significant recession or hypertrophy. Lungs : Equal chest rise bilaterally, no use of accessory muscles, trachea is midline. Cor : Rate and rhythm are normal. Abdomen : Soft, ND, NT, no g/r/m Extremities : No edema, no cyanosis or clubbing, dorsalis pedis pulses are present bilaterally, non-tender to palpation of calves. Upper extremities are normal bilaterally. Back : non-tender to palpation, no CVA tenderness. Neuro : CN II - XII intact, Upper and lower extremities have equal and full str ength Data 02/23/23 05:34 02/23/23 11:32 Micro: Microbiology 02/22/23 11:30 Stool Lactoferrin - Final Stool Occult Blood (FIT) - Final A&P Assessment and plan (1) Colitis: (2) GI bleeding: Plan Colonoscopy The risks and benefits of the procedure, including bleeding, infection, intestinal perforation requiring surgery, missed lesion were explained to the patient. The patient is understanding of the risks and wishes to proceed. Coding Level of Care Code 35322 Diagnoses Colitis K52.9 GI bleeding K92.2
[2023-02-22 19:00] LABS: Basophils % 0.9 %; Eosinophils # 0.3 10^3/uL (0.0-0.8); Eosinophils % 7.3 %; Hematocrit 25.4 % (37-53); Lymphocytes # 0.4 10^3/uL (0.8-4.8); Lymphocytes % 8.5 %; Mean Corpuscular HGB Conc 30.7 g/dL (30-55); Mean Corpuscular Hemoglobin 28.7 pg (27-33); Mean Corpuscular Volume 93.4 fl (82-101); Mean Platelet Volume 11.9 fL (7.4-10.4); Monocytes # 0.6 10^3/uL (0.2-0.9); Monocytes % 13.8 %; Neutrophils # 2.94 10^3/uL (1.8-7.7); Nucleated Red Blood Cells % 0 %; Platelet Count 102 10^3/cmm (157-399); Red Blood Count 2.72 10^6/uL (3.85-5.65); Red Cell Distribution Width 18.4 % (12.1-15.1); White Blood Count 4.26 10^3/uL (3.29-11.43)
[2023-02-22 20:55] LABS: Basophils % 0.9 %; Eosinophils # 0.3 10^3/uL (0.0-0.8); Hematocrit 25.7 % (37-53); Lymphocytes # 0.4 10^3/uL (0.8-4.8); Lymphocytes % 8.9 %; Mean Corpuscular HGB Conc 31.1 g/dL (30-55); Mean Corpuscular Hemoglobin 28.9 pg (27-33); Mean Corpuscular Volume 92.8 fl (82-101); Mean Platelet Volume 11.4 fL (7.4-10.4); Monocytes # 0.6 10^3/uL (0.2-0.9); Monocytes % 13.6 %; Neutrophils # 2.89 10^3/uL (1.8-7.7); Neutrophils % 68.1 %; Nucleated Red Blood Cells % 0 %; Platelet Count 111 10^3/cmm (157-399); Red Blood Count 2.77 10^6/uL (3.85-5.65); Red Cell Distribution Width 18.4 % (12.1-15.1); White Blood Count 4.25 10^3/uL (3.29-11.43)
[2023-02-22 21:17] LABS: Glucose Point of Care 119 mg/dL (70-110)
[2023-02-22] MEDS: cetylpyridinium Lozenge 1 EACH MUCOUS MEM (23:27)
[2023-02-23] VITALS (10 sets, daily range): BP systolic 101–134; BP diastolic 59–84; PULSE 84–99; RESP 14–20; TEMP 36.2–37.3; O2SAT 92–97
[2023-02-23] MEDS: metroNIDAZOLE IV 500 MG/100 ML PREMIX 100 MG IV ×3 (03:05→18:22)
[2023-02-23] MEDS: pantoprazole 40 mg SDV IVP ×2 (04:01→17:46)
[2023-02-23] MEDS: ciprofloxacin 400 MG/200 ML PREMIX 200 MG IV ×2 (04:01→15:42)
[2023-02-23 06:11] LABS: Basophils % 1.2 %; Eosinophils # 0.3 10^3/uL (0.0-0.8); Eosinophils % 10.1 %; Hematocrit 24.1 % (37-53); Lymphocytes # 0.3 10^3/uL (0.8-4.8); Lymphocytes % 9.8 %; Mean Corpuscular HGB Conc 29.5 g/dL (30-55); Mean Corpuscular Hemoglobin 27.4 pg (27-33); Mean Corpuscular Volume 93.1 fl (82-101); Monocytes # 0.5 10^3/uL (0.2-0.9); Monocytes % 15.4 %; Neutrophils # 2.14 10^3/uL (1.8-7.7); Neutrophils % 63.2 %; Nucleated Red Blood Cells % 0 %; Platelet Count 88 10^3/cmm (157-399); Red Blood Count 2.59 10^6/uL (3.85-5.65); Red Cell Distribution Width 18.6 % (12.1-15.1); White Blood Count 3.38 10^3/uL (3.29-11.43)
[2023-02-23 06:37] LABS: Alanine Aminotransferase 27 U/L (0-41); Albumin Level 2.4 g/dL (3.5-5.2); Alkaline Phosphatase 208 U/L (40-130); Anion Gap 7.7 (5-19); Aspartate Amino Transferase 63 U/L (0-40); Blood Urea Nitrogen 7 mg/dL (6-20); Calcium 7.1 mg/dL (8.5-10.5); Carbon Dioxide 27 mmol/L (22-29); Chloride 103 mmol/L (98-107); Creatinine Clr Calc Pharmacy 150.0973; Globulin 2.4 g/dL (1.3-4.6); Glomerular Filtration Rate 118.4 mL/min (90-130); Glucose 105 mg/dL (65-115); Magnesium 1.7 mg/dL (1.7-2.3); Osmolality Calculated 278 mOsm/kg (285-295); Sodium 135 mmol/L (136-145); Total Protein 4.8 g/dL (6.6-8.7)
[2023-02-23 06:59] LABS: Potassium 2.7 mmol/L (3.5-5.1)
[2023-02-23] MEDS: lidocaine 1% 5 ML in potassium chloride premix 100 ML 26.25 ML IV (08:43)
[2023-02-23] MEDS: lactobacillus 1 Tablet 1 TAB PO ×2 (08:46→17:46)
[2023-02-23] MEDS: multivitamin therapeutic Tablet 1 TAB PO (08:47)
[2023-02-23] MEDS: thiamine 100 mg Tablet PO (08:47)
[2023-02-23] MEDS: potassium chloride ER 10 mEq Tablet 40 MEQ PO ×2 (08:47→17:47)
[2023-02-23] MEDS: sodium chloride 0.9% 1,000 ML 30 ML IV (11:23)
--- NOTE | 2023-02-23 11:27 | ANES.PREANE2 ---
Pre-Anesthetic Assessment Height/Weight: Height 1.75 m Weight 108.862 kg Temp Pulse Resp BP Pulse Ox O2 Del Method 98.5 F 84 18 120/71 96 Room Air 02/23/23 11:15 02/23/23 11:15 02/23/23 11:15 02/23/23 11:15 02/23/23 11:15 02/23/23 11:15 Preop Diagnosis: GI bleed Operation Date: 02/23/23 12:15 Proposed Procedures p Colonoscopy(Not Applicable) - Tom Blanton DO Familial anesthetic complications: None Was Beta Anita taken within 24 hours: N/A Was Clonidine taken within 24 hours: N/A Last intake: Intake Last Liquid Date 02/22/23 Last Liquid Time 23:00 Social Alcohol (Few beers a day) and Tobacco (Chews) Exam alert, oriented x 3, clear to auscultation bilaterally and regular rate & rhythm Airway Submandibular: within normal limits Cervical ROM: within normal limits Mallampati: Class II Comments: Comments: 2 missing teeth History/ROS No significant history except as noted and No significant complaints Pulmonary Cough CV/HEM Anemia, Congestive Heart Failure, Hypertension and Murmur None reported Hepatic Cirrhosis GI Gastroesophageal Reflux Disease (None now) and Peptic Ulcer Disease Esophageal varices Metabolic Hyperlipidemia and Morbid Obesity Musc/skel Lower Back Pain Neuropsych Neuropathy Anesthetic Plan ASA status: 3 Anesthesia: Anesthesia Evaluation, General and MAC Risk of > 500 ml blood loss (7ml/kg in children): No Medications/Allergies Home Medications Medication Instructions Recorded Confirmed Last Taken Type multivitamin 1 tab PO .THREE TIMES A WEEK 07/27/20 02/22/23 04/30/22 History furosemide 20 mg tablet 40 mg PO DAILY PRN swelling 90 04/28/22 02/22/23 02/20/23 Rx days #120 tabs spironolactone 50 mg tablet 50 mg PO BID 90 days #180 tabs 09/09/22 02/22/23 1 Month Ago Rx ~01/22/23 pt states stop takin L.acidophil-L.casei-B.bifid-B.longum-FOS 1 cap PO DAILY PRN unknown 02/22/23 02/22/23 Unknown History 2 billion cell-50 mg capsule (Probiotic Blend) albuterol sulfate 90 mcg/actuation 2 puff inhalation QID PRN 02/22/23 02/22/23 Unknown History aerosol inhaler Shortness Of Breath cyanocobalamin (vitamin B-12) 5,000 mcg sublingual DAILY PRN 02/22/23 02/22/23 Unknown History 5,000 mcg sublingual tablet unknown (Vitamin B-12) ferrous sulfate 325 mg (65 mg 325 mg PO DAILY PRN unknown 02/22/23 02/22/23 Unknown History iron) tablet (iron) potassium chloride 10 mEq 20 - 40 meq PO BID PRN when takes 02/22/23 02/22/23 02/20/23 History tablet,extended release lasix 20 meq simethicone 125 mg capsule (Gas-X 125 - 250 mg PO DAILY PRN 02/22/23 02/22/23 Unknown History Extra Strength) Abdominal Distention thiamine mononitrate (vit B1) 100 100 mg PO DAILY PRN unknown 02/22/23 02/22/23 Unknown History mg tablet (Vitamin B-1 (mononitrate)) Allergies Allergy/AdvReac Type Severity Reaction Status Date / Time No Known Allergies Allergy Verified 02/22/23 09:23 Current Medications Generic Name Dose Route Start Last Admin Trade Name Freq PRN Reason Stop Dose Admin Benzocaine 1 each 02/22/23 23:16 02/22/23 23:27 Cetylpyridinium Lozenge MUCOUS MEM 1 each Q2H PRN Administration SORE THROAT Furosemide 20 mg 02/22/23 11:16 02/22/23 11:35 Furosemide 20 Mg Tablet PO 20 mg DAILY PRN Administration EDEMA Ciprofloxacin/Dextrose 400 mg in 200 mls @ 200 mls/hr 02/22/23 15:00 02/23/23 05:36 Cipro IV Infused Q12H CONSTANCE Infusion Protocol Metronidazole 500 mg in 100 mls @ 100 mls/hr 02/22/23 11:00 02/23/23 10:18 Flagyl Iv IV 100 mls/hr Q8H CONSTANCE Administration Protocol Lidocaine HCl 5 ml/ Potassium 105 mls @ 26.25 mls/hr 02/23/23 08:30 02/23/23 08:43 Chloride IV 02/23/23 12:29 26.25 mls/hr ONCE ONE Administration Sodium Chloride 1,000 mls @ 30 mls/hr 02/23/23 11:15 02/23/23 11:23 Sodium Chloride 0.9% IV 02/24/23 11:14 30 mls/hr .Q24H CONSTANCE Administration Lactobacillus Acidophilus 1 tab 02/22/23 09:00 02/23/23 08:46 Lactobacillus 1 Tablet PO 1 tab BID CONSTANCE Administration Multivitamins Therapeutic 1 tab 02/22/23 09:00 02/23/23 08:47 Multivitamin Therapeutic Tablet PO 1 tab DAILY CONSTANCE Administration Non-Formulary Medication 5,000 mcg 02/22/23 09:00 02/23/23 08:05 Mecobalamin (Vitamin B12) PO Not Given DAILY CONSTANCE Ondansetron HCl 4 mg 02/22/23 11:18 02/22/23 11:35 Ondansetron 2 Mg/Ml Sdv 2 Ml IVP 4 mg Q4H PRN Administration NAUSEA AND VOMITING Pantoprazole Sodium 40 mg 02/22/23 05:00 02/23/23 04:01 Pantoprazole 40 Mg Sdv IVP 40 mg Q12H CONSTANCE Administration Potassium Chloride 40 meq 02/22/23 09:00 02/23/23 08:47 Potassium Chloride Er 10 Meq Tablet PO 40 meq BID CONSTANCE Administration Spironolactone 50 mg 02/22/23 09:00 02/23/23 09:19 Spironolactone 25 Mg Tablet PO Not Given BID CONSTANCE Thiamine Mononitrate 100 mg 02/22/23 09:00 02/23/23 08:47 Thiamine 100 Mg Tablet PO 100 mg DAILY CONSTANCE Administration PFSH Anesthesia Medical History Acute GI bleeding Alcoholism, chronic Anemia due to acute blood loss Cardiomegaly GERD (gastroesophageal reflux disease) History of alcoholism Hypercholesteremia Hypertension Liver disease, chronic, due to alcohol Type 2 diabetes mellitus Social History Smoking and tobacco status: former smoker Quit status (tobacco): not considering quitting Second hand smoke exposure: No Alcohol intake: current Alcohol intake frequency: 0-2 Drinks per Day Substance/Drug Use: never Current gender identity: Male Data Anesthesia 02/23/23 05:34 02/23/23 05:34 Short CBC 02/22/23 02/22/23 02/22/23 Range/Units 01:40 09:40 11:55 WBC 4.41 4.53 4.96 (3.29-11.43) 10^3/uL Hgb 8.80 L 8.00 L 8.80 L (11.27-16.99) g/dL Hct 28.5 L 25.9 L 28.9 L (37-53) % MCV 92.2 91.2 92.6 (82-101) fl Plt Count 114 L 107 L 115 L (157-399) 10^3/cmm Neut % (Auto) 70.1 70.7 69.8 % Neut # (Auto) 3.09 3.20 3.46 (1.8-7.7) 10^3/uL 02/22/23 02/22/23 02/23/23 Range/Units 18:32 20:18 05:34 WBC 4.26 4.25 3.38 (3.29-11.43) 10^3/uL Hgb 7.80 L 8.00 L 7.10 L (11.27-16.99) g/dL Hct 25.4 L 25.7 L 24.1 L (37-53) % MCV 93.4 92.8 93.1 (82-101) fl Plt Count 102 L 111 L 88 L (157-399) 10^3/cmm Neut % (Auto) 69.0 68.1 63.2 % Neut # (Auto) 2.94 2.89 2.14 (1.8-7.7) 10^3/uL BMP 02/22/23 02/22/23 02/23/23 01:40 09:40 05:34 Sodium 137 135 L 135 L Potassium 2.4 L* 3.2 L 2.7 L* Chloride 100 102 103 Carbon Dioxide 28 27 27 BUN 7 7 7 Creatinine 0.7 0.7 0.7 Glucose 125 H 144 H 105 Calcium 7.6 L 7.3 L 7.1 L Liver Function 02/22/23 02/22/23 02/23/23 Range/Units 01:40 09:40 05:34 Total Bilirubin 7.4 H* 7.4 H* 8.0 H* (0.15-1.2) mg/dL AST 84 H 72 H 63 H (0-40) U/L ALT 32 27 27 (0-41) U/L Alkaline Phosphatase 302 H 256 H 208 H (40-130) U/L Albumin 3.0 L 2.8 L 2.4 L (3.5-5.2) g/dL Blood Bank 02/22/23 09:40 Blood Type O Positive Rho(D) Type Positive Antibody Screen Negative Coags 02/22/23 02/22/23 02/22/23 01:40 01:40 09:40 ESR 16 H PT 21.00 H INR 1.74 H APTT 37.9 H C-Reactive Protein 43.2 H 02/22/23 09:40 ESR PT INR APTT C-Reactive Protein 36.8 H Microbiology 02/22/23 11:30 Stool Lactoferrin - Final Stool Occult Blood (FIT) - Final Cardiac Studies: Echocardiogram Ultrasound 07/15/20
[2023-02-23 11:54] LABS: Potassium 3.4 mmol/L (3.5-5.1)
--- NOTE | 2023-02-23 12:13 | PM.PN ---
Vitals/I&O/Wt Last Vital Signs Temp 98.5 F 02/23/23 11:15 Pulse 84 02/23/23 11:15 Resp 18 02/23/23 11:15 BP 120/71 02/23/23 11:15 Pulse Ox 96 02/23/23 11:15 O2 Del Method Room Air 02/23/23 11:15 02/22/23 02/23/23 02/23/23 22:59 06:59 14:59 Intake Total 645 / 1704 / 2003 Balance 645 / 1704 / 2003 Weight last 48 hrs Weight 240 lb Data 02/23/23 05:34 02/23/23 11:32 Micro: Microbiology 02/22/23 11:30 Stool Lactoferrin - Final Stool Occult Blood (FIT) - Final A&P Assessment and plan (1) Colitis: (2) GI bleeding: Plan Colonoscopy The risks and benefits of the procedure, including bleeding, infection, intestinal perforation requiring surgery, missed lesion were explained to the patient. The patient is understanding of the risks and wishes to proceed. Attestations Medical Necessity Statement*: PER PRIMARY Coding Level of Care Code Acute Code for Chg Fwd Diagnoses Colitis K52.9 GI bleeding K92.2
--- NOTE | 2023-02-23 14:26 | ANE.PACU2 ---
Inpatient post-anesthesia follow up: Airway intact: Yes Vital signs: Temperature 98.1 F Pulse Rate 84 Respiratory Rate 20 Blood Pressure 134/80 Pulse Oximetry 97 Oxygen Delivery Me thod Room Air Oxygen Flow Rate 2 Fraction of Inspir ed Oxygen Hydration adequate: Yes Nausea and vomiting: No Pain level: 2 Mental status: Baseline
[2023-02-23] MEDS: spironolactone 25 mg Tablet 50 MG PO (17:47)
--- NOTE | 2023-02-23 19:48 | P.PN_ITS ---
Subjective Subjective: Discussed with him and his hemoglobin decreased, requested recheck. Noted also decrease in platelets. So far, however, no additional bleeding. Colonoscopy today. Does have diarrhea. Vitals/I&O/Wt Last Vital Signs Temp 98.1 F 02/23/23 16:00 Pulse 89 02/23/23 16:00 Resp 19 H 02/23/23 16:00 BP 123/84 02/23/23 16:00 Pulse Ox 97 02/23/23 16:00 O2 Del Method Room Air 02/23/23 16:00 O2 Flow Rate 2 02/23/23 12:53 02/23/23 02/23/23 02/23/23 06:59 14:59 22:59 Intake Total 2003 405 / 405 800 / 1205 Balance 2003 405 / 405 800 / 1205 Weight last 48 hrs Weight 108.862 kg Physical Exam Narrative: Accompanied by spouse at bedside. Const: COMMON NORMALS: patient oriented x3 and alert GENERAL APPEARANCE: cooperative ORIENTATION/CONSCIOUSNESS: Yes awake HENMT: COMMON NORMALS: oropharynx normal Neck/C-Spine: COMMON NORMALS: no JVD Resp: COMMON NORMALS: normal respiratory effort and clear to auscultation bilaterally AUSCULTATION: clear to auscultation bilaterally Cardio: COMMON NORMALS: no JVD, regular rhythm, S1 normal heart sound present, S2 normal heart sound present and No murmurs present (Cardio) RHYTHM: regular rhythm HEART SOUNDS: S1 normal heart sound present and S2 normal heart sound present GI: COMMON NORMALS: Normal to inspection, nondistended, normoactive bowel sounds present, Soft to palpation and non-tender INSPECTION: Yes abdominal distension PALPATION: Yes Soft to palpation Extremity: COMMON NORMALS: no joint enlargement GENERAL: Yes edema (2+) Neuro: COMMON NORMALS: patient oriented x3 and moves all extremities SENSORIUM/ORIENTATION: Yes alert Skin: COMMON NORMALS: no rashes or lesions noted GENERAL SKIN EXAM: no rashes or lesions noted Data 02/23/23 14:37 02/23/23 11:32 A&P Assessment and plan (1) Colitis: Underwent colonoscopy. Discussed with surgery. Noted ascending and transverse colitis with spontaneous bleeding. Biopsies taken. So far no further recurrence of bleeding. Still having diarrhea. Discussed with them noted WBC as well as positive Hemoccult on stool studies so far. Additional studies pending. Reviewed hemoglobin, platelets. Discussed reassessing again in the morning. At risk for recurrence of bleeding. Reviewed CRP, ESR. Continue empiric antibiotics at this time. Again noted hypokalemia, replace. At risk of additional electrolyte disturbance. Recheck chemistry. Magnesium reviewed. Give supplemental magnesium. Recheck magnesium. Possibly infectious versus inflammatory colitis. (2) GI bleeding: Hemoglobin, platelets reviewed. Recheck levels. Noted worsening anemia, but on recheck this afternoon so far has not required transfusion. So far bleeding appears to have subsided. Noted thrombocytopenia as well. Some worsening. Recurrent GI bleeding, currently some evidence of colitis. Unclear if infectious or inflammatory. As above. Recheck CBC, noted anemia compared to back in September, currently down to 8 on recheck. Sinus tachycardia 102. Requested 2 units RBC to be held for him. Recheck blood counts again this afternoon. At risk of severe/life-threatening anemia. Noted thrombocytopenia, platelets 107. He is not on any blood thinners or antiplatelets. History of recurrent GI bleeding, iron deficiency anemia. On iron at home. Current INR 1.74. Not on anticoagulation. Cannot exclude component of vitamin K deficiency. We will give him a dose of vitamin K. (3) Hypokalemia: Severe hypokalemia. At risk of arrhythmia. Received additional replacement of potassium. Supplement magnesium. Recheck both. Severe hypokalemia, on diuretics, received potassium replacement. Repeat chemistry requested. Plan 52-year-old male with history of alcohol abuse alcoholic liver cirrhosis iron deficiency anemia esophageal varices presented with complaint of bright red blood per rectum , diarrhea and abdominal pain, secondary to acute colitis also leading to hematochezia Liver cirrhosis, fluid overload: Continue spironolactone. Stop IV fluid. R echeck potassium level. Elevated INR bilirubin thrombocytopenia consistent with liver cirrhosis. F ollow-up chemistry with liver parameters. Stable for now. IV pantoprazole 40 mg every 12 hours for stress ulcer prophylaxis Intermittent compression stockings for DVT prophylaxis Attestations Medical Necessity Statement*: Continue admission for assessment management of colitis, lower GI bleeding, acute anemia in a gentleman with underlying liver cirrhosis. Diagnoses Colitis K52.9 GI bleeding K92.2 Hypokalemia E87.6
[2023-02-23] MEDS: magnesium sulfate premix 2 GM/50 ML PIGGYBACK IV (22:44)
[2023-02-24] MEDS: ciprofloxacin 400 MG/200 ML PREMIX 200 MG IV (02:07)
[2023-02-24] MEDS: metroNIDAZOLE IV 500 MG/100 ML PREMIX 100 MG IV (03:02)
[2023-02-24 03:49] VITALS: BP 110/71; PULSE 80; RESP 16; TEMP 37.2; O2SAT 96
[2023-02-24 05:58] LABS: Basophils # 0.1 10^3/uL (0.0-0.1); Basophils % 1.3 %; Eosinophils # 0.3 10^3/uL (0.0-0.8); Eosinophils % 7.3 %; Hematocrit 24.2 % (37-53); Lymphocytes # 0.4 10^3/uL (0.8-4.8); Lymphocytes % 9.7 %; Mean Corpuscular HGB Conc 30.2 g/dL (30-55); Mean Corpuscular Volume 92.7 fl (82-101); Mean Platelet Volume 9.7 fL (7.4-10.4); Monocytes # 0.5 10^3/uL (0.2-0.9); Monocytes % 13.6 %; Neutrophils # 2.57 10^3/uL (1.8-7.7); Neutrophils % 67.6 %; Nucleated Red Blood Cells % 0 %; Platelet Count 94 10^3/cmm (157-399); Red Blood Count 2.61 10^6/uL (3.85-5.65); Red Cell Distribution Width 18.6 % (12.1-15.1); White Blood Count 3.81 10^3/uL (3.29-11.43)
[2023-02-24 06:22] LABS: Alanine Aminotransferase 24 U/L (0-41); Albumin Level 2.5 g/dL (3.5-5.2); Alkaline Phosphatase 220 U/L (40-130); Anion Gap 8.6 (5-19); Aspartate Amino Transferase 60 U/L (0-40); Blood Urea Nitrogen 8 mg/dL (6-20); Calcium 7.3 mg/dL (8.5-10.5); Carbon Dioxide 27 mmol/L (22-29); Chloride 105 mmol/L (98-107); Creatinine Clr Calc Pharmacy 150.0973; Globulin 2.6 g/dL (1.3-4.6); Glomerular Filtration Rate 118.4 mL/min (90-130); Glucose 109 mg/dL (65-115); Osmolality Calculated 283 mOsm/kg (285-295); Potassium 3.6 mmol/L (3.5-5.1); Sodium 137 mmol/L (136-145); Total Protein 5.1 g/dL (6.6-8.7)
[2023-02-24 06:50] LABS: Total Bilirubin 7.5 mg/dL (0.15-1.2)
[2023-02-24 07:35] VITALS: BP 125/78; PULSE 93; RESP 18; TEMP 36.8; O2SAT 96
[2023-02-24] MEDS: potassium chloride ER 10 mEq Tablet 40 MEQ PO (08:17)
[2023-02-24] MEDS: lactobacillus 1 Tablet 1 TAB PO (08:17)
[2023-02-24] MEDS: multivitamin therapeutic Tablet 1 TAB PO (08:18)
[2023-02-24] MEDS: thiamine 100 mg Tablet PO (08:18)
[2023-02-24] MEDS: pantoprazole 40 mg SDV IVP (08:18)
--- NOTE | 2023-02-24 09:30 | PC.NURSE ---
Patient refused spironolactone due to the possibility of being discharged today. Patient stated I don't want to have to stop to pee on the way home. This nurse educated patient on importance of medication due to the edema in his lower extremities. Patient continued to refuse. MD notified. No new orders at this time.
--- NOTE | 2023-02-24 09:52 | PM.DCS ---
Discharge Providers Date of Admission: 02/22/23 03:18 Date of Discharge: February 24, 2023 Attending Provider at Admission: Apryl Little MD Attending Provider at Discharge: Joao Willams Primary Care Provider: Rosa M Morrison MD Diagnoses at Discharge Discharge Diagnosis (1) Colitis: Status: Acute (2) GI bleeding: Status: Acute (3) Hypokalemia: Status: Acute Reason for Visit Reason for Visit: blood in stool Hospital Course Hospital Course He was admitted and treated for suspected colitis, etiology unclear possibly infectious versus inflammatory. Noted mild diffuse colitis on CT. Noted also mild thrombocytopenia associated with liver cirrhosis. Liver cirrhosis noted on CT, mild to moderate ascites. Chronic splenomegaly. Incidentally found also at least a handful of subcentimeter small hypodense foci in the liver and not clearly seen in July 2020, too small to accurately characterize. Follow-up MRI in 3-6 months recommended (or earlier if warranted). Incidentally found cholelithiasis. Incidentally found horseshoe kidney. Incidentally found stable 2 mm nonobstructive calculus of the right kidney. Incidentally found mild sigmoid diverticulosis. Right inguinal hernia containing peritoneal fat and ascites fluid. Subacute right pubic rami fractures, new in comparison to. Please follow-up. Treated empirically with ciprofloxacin and Flagyl, there was consideration of other etiology, possibly inflammatory given rather painless bright red blood per rectum, no leukocytosis, afebrile, no nausea vomiting or other GI symptoms, although did have diarrhea. Due to recurrent nature of bright red blood per rectum in the past consideration of other than infectious etiology. CRP and ESR were sent and moderately elevated. CRP 43.2. ESR 16. Was seen by surgery for additional evaluation for further consideration of etiology of colitis with colonoscopy. Finding of ascending and transverse colon inflammation, contact mucosal bleeding. Biopsies sent. Clip placed. Bleeding eventually subsided, hemoglobin remained steady in the low sevens. Platelets around 90,000. Some persistence of diarrhea but today is forming up. Stool studies were requested, but had to be sent out as could not be performed in-house at the current time. On discussion of consideration awaiting further studies she does want to discharge home today pending the studies, empirically continuing Cipro and Flagyl. Please follow-up pathology results. Please revisit the results with him. He knows to return to the hospital in case of any worsening or new concerning symptoms. He is asked to follow-up with GI due to recurrent colitis, bright red blood per rectum. Please follow-up with him regarding liver cirrhosis and refer to establish with hepatology. Physical Exam Narrative: Accompanied by family. Const: COMMON NORMALS: patient oriented x3 and alert GENERAL APPEARANCE: cooperative ORIENTATION/CONSCIOUSNESS: Yes awake HENMT: COMMON NORMALS: oropharynx normal Neck/C-Spine: COMMON NORMALS: no JVD Resp: COMMON NORMALS: normal respiratory effort and clear to auscultation bilaterally AUSCULTATION: clear to auscultation bilaterally Cardio: COMMON NORMALS: no JVD, regular rhythm, S1 normal heart sound present, S2 normal heart sound present and No murmurs present (Cardio) RHYTHM: regular rhythm HEART SOUNDS: S1 normal heart sound present and S2 normal heart sound present GI: COMMON NORMALS: Normal to inspection, nondistended, normoactive bowel sounds present, Soft to palpation and non-tender PALPATION: Yes Soft to palpation Extremity: COMMON NORMALS: no joint enlargement and no pedal edema Neuro: COMMON NORMALS: patient oriented x3 and moves all extremities SENSORIUM/ORIENTATION: Yes alert Skin: COMMON NORMALS: no rashes or lesions noted GENERAL SKIN EXAM: no rashes or lesions noted Discharge Data Studies Completed and Pending Completed Studies During Hospitalization Category Date Time Status CT abdomen pelvis w con* [id number] Stat Cat Scan 02/22/23 01:39 Completed Pending at discharge Category Date Time Status Clostridium Diffi Toxin Reflex Routine Lab 02/22/23 11:30 Received Clostridium Difficile PCR Routine Lab 02/23/23 13:20 Ordered Complete Blood Count w/Auto AM LABS Lab 02/25/23 04:00 Ordered Complete Blood Count w/Auto AM LABS Lab 02/26/23 04:00 Ordered Comprehensive Metabolic Panel AM LABS Lab 02/25/23 04:00 Ordered Comprehensive Metabolic Panel AM LABS Lab 02/26/23 04:00 Ordered Leukocyte Reduced RBC Routine Lab 02/22/23 09:40 Results OVA and Parasites, Conc and PE Routine Lab 02/22/23 10:30 Received OVA and Parasites, Conc and PE Routine Lab 02/23/23 13:20 Ordered Salmonella / Shigella / Campy Routine Lab 02/22/23 10:30 Received Salmonella / Shigella / Campy Routine Lab 02/23/23 18:28 Received Type and Screen Routine Lab 02/22/23 09:40 Results Pathology: Surgical [PTH] Routine Pth 02/23/23 12:52 Received Radiology Impressions Abdomen/Pelvis CT 02/22/23 01:39 IMPRESSION: 1. Mild diffuse thickening of the colon, suggesting possible infectious/inflammatory colitis. 2. Vkue-dw-shouudnv ascites. 3. Cirrhotic liver. 4. At least a handful of small subcentimeter hypodense foci in the liver, not clearly seen on 07/27/2020, but too small to accurately characterize. Follow-up MRI in 3-6 months is recommended (or earlier if warranted by the patient's specific clinical circumstances). (Reference: Marita) 5. Chronic splenomegaly. 6. Cholelithiasis. No evidence of acute cholecystitis or biliary dilatation. 7. Horseshoe kidney. 8. Stable 2 mm nonobstructive calculus in the right kidney. 9. Mild sigmoid diverticulosis without evidence of diverticulitis. 10. Right inguinal hernia containing peritoneal fat and ascitic fluid. 11. Subacute right pubic rami fractures, new in comparison to 09/17/2022. REFERENCES: Marita MERCHANT, et al. Management of Incidental Liver Lesions on CT: A White Paper of the ACR Incidental Findings Committee. J Am Cristiano Radiol. 2017;14(11):6568-6568. Laboratory Results WBC 3.81 10^3/uL (3.29-11.43) 02/24/23 05:39 RBC 2.61 10^6/uL (3.85-5.65) L 02/24/23 05:39 Hgb 7.30 g/dL (11.27-16.99) L 02/24/23 05:39 Hct 24.2 % (37-53) L 02/24/23 05:39 MCV 92.7 fl (82-101) 02/24/23 05:39 MCH 28.0 pg (27-33) 02/24/23 05:39 MCHC 30.2 g/dL (30-55) 02/24/23 05:39 RDW 18.6 % (12.1-15.1) H 02/24/23 05:39 Plt Count 94 10^3/cmm (157-399) L 02/24/23 05:39 MPV 9.7 fL (7.4-10.4) 02/24/23 05:39 Neut % (Auto) 67.6 % 02/24/23 05:39 Lymph % (Auto) 9.7 % 02/24/23 05:39 [place] % (Auto) 13.6 % 02/24/23 05:39 Eos % (Auto) 7.3 % 02/24/23 05:39 Baso % (Auto) 1.3 % 02/24/23 05:39 Neut # (Auto) 2.57 10^3/uL (1.8-7.7) 02/24/23 05:39 Lymph # (Auto) 0.4 10^3/uL (0.8-4.8) L 02/24/23 05:39 [place] # (Auto) 0.5 10^3/uL (0.2-0.9) 02/24/23 05:39 Eos # (Auto) 0.3 10^3/uL (0.0-0.8) 02/24/23 05:39 Baso # (Auto) 0.1 10^3/uL (0.0-0.1) 02/24/23 05:39 Nucleated RBC % (auto) 0 % 02/24/23 05:39 Nucleated RBCs # 0.0 /100WBC 02/24/23 05:39 ESR 16 mm/hr (0-10) H 02/22/23 09:40 PT 21.00 SECONDS (12.1-14.9) H 02/22/23 01:40 INR 1.74 (0.8-1.2) H 02/22/23 01:40 APTT 37.9 SECONDS (23.9-36.7) H 02/22/23 01:40 Sodium 137 mmol/L (136-145) 02/24/23 05:39 Potassium 3.6 mmol/L (3.5-5.1) 02/24/23 05:39 Chloride 105 mmol/L (98-107) 02/24/23 05:39 Carbon Dioxide 27 mmol/L (22-29) 02/24/23 05:39 Anion Gap 8.6 (5-19) 02/24/23 05:39 BUN 8 mg/dL (6-20) 02/24/23 05:39 Creatinine 0.7 mg/dL (0.7-1.2) 02/24/23 05:39 GFR Calculation 118.4 mL/min (90-130) 02/24/23 05:39 Glucose 109 mg/dL (65-115) 02/24/23 05:39 POC Glucose 119 mg/dL (70-110) H 02/22/23 21:13 Calculated Osmolality 283 mOsm/kg (285-295) L 02/24/23 05:39 Calcium 7.3 mg/dL (8.5-10.5) L 02/24/23 05:39 Magnesium 2.0 mg/dL (1.7-2.3) 02/24/23 05:39 Total Bilirubin 7.5 mg/dL (0.15-1.2) H* 02/24/23 05:39 AST 60 U/L (0-40) H 02/24/23 05:39 ALT 24 U/L (0-41) 02/24/23 05:39 Alkaline Phosphatase 220 U/L (40-130) H 02/24/23 05:39 C-Reactive Protein 36.8 mg/L (0.0-4.9) H 02/22/23 09:40 Total Protein 5.1 g/dL (6.6-8.7) L 02/24/23 05:39 Albumin 2.5 g/dL (3.5-5.2) L 02/24/23 05:39 Globulin 2.6 g/dL (1.3-4.6) 02/24/23 05:39 C. difficile Tox (PCR) Cancelled 02/22/23 11:30 Blood Type O Positive 02/22/23 09:40 Rho(D) Type Positive 02/22/23 09:40 Antibody Screen Negative 02/22/23 09:40 Crossmatch See Detail 02/22/23 09:40 Vitals Last Vital Signs Temp 98.2 F 02/24/23 07:35 Pulse 93 02/24/23 07:35 Resp 18 02/24/23 07:35 BP 125/78 02/24/23 07:35 Pulse Ox 96 02/24/23 07:35 O2 Del Method Room Air 02/24/23 07:35 O2 Flow Rate 2 02/23/23 12:53 Discharge Plan Discharge Patient Disposition: Home Condition: Stable Prescriptions: New ciprofloxacin HCl 500 mg tablet 500 mg PO BID Qty: 11 0RF metronidazole 500 mg tablet 500 mg PO Q8H Qty: 16 0RF Continued furosemide 20 mg tablet 40 mg PO DAILY PRN (Reason: swelling) 90 Days Qty: 120 0RF spironolactone 50 mg tablet 50 mg PO BID 90 Days Qty: 180 1RF multivitamin Tablet 1 tab PO .THREE TIMES A WEEK Gas-X Extra Strength 125 mg Capsule 125 - 250 mg PO DAILY PRN (Reason: Abdominal Distention) potassium chloride 10 mEq tablet extended release 20 - 40 meq PO BID PRN (Reason: when takes lasix) iron 325 mg (65 mg iron) Tablet 325 mg PO DAILY PRN (Reason: unknown) albuterol sulfate 90 mcg/actuation Hfa Aerosol Inhaler 2 puff INHALATION QID PRN (Reason: Shortness Of Breath) Vitamin B-1 (mononitrate) 100 mg Tablet 100 mg PO DAILY PRN (Reason: unknown) Vitamin B-12 5,000 mcg Tablet, Sublingual 5,000 mcg SUBLINGUAL DAILY PRN (Reason: unknown) Probiotic Blend 2 billion cell-50 mg Capsule 1 cap PO DAILY PRN (Reason: unknown) Rx Instructions: give with meal/snack Discharge Orders: Discharge Order (Routine); Ordered 02/24/23 Ordered By: Joao Willams Referrals: Rosa M Morrison MD [Primary Care Provider] - 03/04/23 11:15 am () Discharge Diet: Cardiac, Low Cholesterol and GI Soft Discharge Activity: Increase activity as tolerated Patient Instructions: Ciprofloxacin (By mouth), Metronidazole (By mouth), Rectal Bleeding (GEN), Cirrhosis of the Liver (GEN), Hypokalemia (GEN), Colitis (ED), Colonoscopy (GEN), GI Discharge Instructions, Opioid Safety Activity Restrictions/Additional Instructions: Please follow-up with your primary doctor for reassessment of improvement from colitis. Please discussed results of stool studies which had to be sent out (could not be performed in the hospital). Discussed consideration of infectious versus inflammatory colitis. Please follow-up with your remote sensing technician to discuss recurrence of bright red blood per rectum, colitis. Complete antibiotic course. Have health department test or water. Maintain recommended food safety precautions as discussed. Return to the hospital in case of any worsening or new concerning symptoms, abdominal pain, return of bleeding, fever, inability to tolerate food or drink or any other concerning symptoms. Follow-up with your primary doctor regarding liver cirrhosis and have them refer you to establish with a liver specialist. Please have your primary doctor follow-up your blood counts including anemia and low platelet levels next visit. Continue potassium supplementation for low potassium, please have your primary doctor follow-up your potassium level at next as well. Please have your primary doctor follow-up at least and for small subcentimeter hypodense foci in the liver with follow-up MRI in 3-6 months (or earlier if needed). Follow-up with your primary doctor regarding 2 mm small stone in the right kidney. Follow-up with your primary doctor regarding horseshoe kidney. Follow-up with your primary doctor regarding right inguinal hernia. Follow-up with your primary doctor regarding subacute right pubic rami fractures. Please follow-up with your primary doctor regarding incidentally seen gallstones. Discharge Attestations Time Spent in Discharge Care*: greater than 30 min Status at Discharge: Cognitive status at discharge: cognitively intact, Behavioral status at discharge: cooperative, Quality Metrics Clinical Quality Measures [ No reported AMI, CVA or VTE this stay] Coding Level of Care Code 26657 Total time (in minutes) for Discharge: 50 Diagnoses Colitis K52.9 GI bleeding K92.2 Hypokalemia E87.6
[2023-02-24 10:41] VITALS: BP 125/78; PULSE 93; RESP 18; TEMP 36.8; O2SAT 96
== END 2023-02-24 10:42 | disposition home or self-care (01) | DRG 391 ==
LOC: ER 03:13 → MEDSURG 03:19
PROVIDERS: Anesthesiology; Surgery; Admitting Provider Internal Medicine; Emergency Provider Emergency Medicine; PCP Family Medicine; Visit Provider Internal Medicine
PROC: 0DJD8ZZ Inspection of Lower Intestinal Tract, Via Natural or Artificial Opening Endoscopic (ICD-10-PCS; CPT 45378; principal; 2023-02-23 12:15)
DX: K52.9 Noninfective gastroenteritis and colitis, unspecified (principal); K57.31 Diverticulosis of large intestine without perforation or abscess with bleeding; I85.10 Secondary esophageal varices without bleeding; D69.59 Other secondary thrombocytopenia; K70.31 Alcoholic cirrhosis of liver with ascites; F10.10 Alcohol abuse, uncomplicated; K80.20 Calculus of gallbladder without cholecystitis without obstruction; Q63.1 Lobulated, fused and horseshoe kidney; N20.0 Calculus of kidney; K40.90 Unilateral inguinal hernia, without obstruction or gangrene, not specified as recurrent; Z79.51 Long term (current) use of inhaled steroids; K21.9 Gastro-esophageal reflux disease without esophagitis; E78.00 Pure hypercholesterolemia, unspecified; I10 Essential (primary) hypertension; E11.9 Type 2 diabetes mellitus without complications; E87.6 Hypokalemia; Z87.891 Personal history of nicotine dependence
CPT/HCPCS: 36415; 36416; 45380; 74177; 80053; 82274; 82962; 83630; 83735; 84132; 85018; 85025; 85610; 85651; 85730; 86140; 86850; 86900; 86920; 87045; 87177; 87209; 87324; 87427; 87449; 88305; 93005; 96365; 96367; 99285; C9113; J0744; J2405; J2704; J3430; J3475; J3480; J3490; J7030; Q9967

== ENCOUNTER → 2023-03-04 12:03 | Outpatient (BNVA) | payer BC, SELFPAY | PROVIDERS: PCP Family Medicine; Visit Provider Family Medicine | DX: I50.9 Heart failure, unspecified (principal); K70.9 Alcoholic liver disease, unspecified; E87.70 Fluid overload, unspecified; K70.31 Alcoholic cirrhosis of liver with ascites | CPT/HCPCS: 80053; 85025 ==

== ENCOUNTER → 2023-03-10 08:38 | Outpatient (BNVA) | payer BC, SELFPAY | PROVIDERS: PCP Family Medicine; Visit Provider Family Medicine | DX: E87.6 Hypokalemia (principal); K92.2 Gastrointestinal hemorrhage, unspecified; K70.31 Alcoholic cirrhosis of liver with ascites; K40.90 Unilateral inguinal hernia, without obstruction or gangrene, not specified as recurrent; K70.9 Alcoholic liver disease, unspecified; F10.20 Alcohol dependence, uncomplicated; K80.20 Calculus of gallbladder without cholecystitis without obstruction; I50.9 Heart failure, unspecified; K52.9 Noninfective gastroenteritis and colitis, unspecified; D64.89 Other specified anemias | CPT/HCPCS: 80053; 85025 ==

== ENCOUNTER 2023-03-25 09:16 | Day surgery (SDC) | payer BC, SELFPAY ==
--- NOTE | 2023-03-25 09:20 | US_ITS ---
WS: [id number] INDICATION: Paracentesis assessment TECHNIQUE: Four-quadrant ultrasound. FINDINGS: Only a minimal amount of abdominal ascites. Insufficient fluid for safe paracentesis. Parac entesis not performed. IMPRESSION: See above
[2023-03-25 09:25] VITALS: BP 135/80; PULSE 97; RESP 18; TEMP 36.4; O2SAT 98
--- NOTE | 2023-03-25 09:45 | PC.NURSE ---
Not enough fluid to perform paracentesis. Procedure not performed. Dr. Butt's office notified.
== END 2023-03-25 09:55 | disposition home or self-care (01) ==
LOC: GILAB 09:16
PROVIDERS: Radiology Neuroradiology; PCP Family Medicine; Visit Provider Family Medicine
DX: K70.31 Alcoholic cirrhosis of liver with ascites (principal)
CPT/HCPCS: 76705

== ENCOUNTER 2023-04-12 05:42 | Day surgery (SDC) | payer BC, SELFPAY ==
[2023-04-12] VITALS (19 sets, daily range): BP systolic 88–151; BP diastolic 52–90; PULSE 88–127; RESP 16–20; TEMP 36.1–37.1; O2SAT 94–100; BMI 34.0
[2023-04-12] MEDS: sodium chloride 0.9% 1,000 ML 30 ML IV (06:13)
--- NOTE | 2023-04-12 06:21 | PC.NURSE ---
PT JAUNDICE. ABDOMEN FIRM AND DISTENDED.
[2023-04-12 06:48] LABS: Eosinophils # 0.1 10^3/uL (0.0-0.8); Eosinophils % 3.3 %; Hematocrit 26.7 % (37-53); Lymphocytes # 0.4 10^3/uL (0.8-4.8); Mean Corpuscular HGB Conc 30.7 g/dL (30-55); Mean Corpuscular Hemoglobin 30.6 pg (27-33); Mean Corpuscular Volume 99.6 fl (82-101); Mean Platelet Volume 9.5 fL (7.4-10.4); Monocytes # 0.6 10^3/uL (0.2-0.9); Monocytes % 13.8 %; Neutrophils # 3.01 10^3/uL (1.8-7.7); Neutrophils % 71.4 %; Nucleated Red Blood Cells % 0 %; Platelet Count 126 10^3/cmm (157-399); Red Blood Count 2.68 10^6/uL (3.85-5.65); Red Cell Distribution Width 20.6 % (12.1-15.1); White Blood Count 4.21 10^3/uL (3.29-11.43)
--- NOTE | 2023-04-12 06:50 | ANES.PREANE2 ---
Pre-Anesthetic Assessment Height/Weight: Height 1.75 m Weight 104.326 kg Temp Resp O2 Del Method 97 F L 18 Room Air 04/12/23 06:04 04/12/23 06:04 04/12/23 06:09 Operation Date: 04/12/23 07:00 Proposed Procedures p 73775 lap right inguinal hernia repair iwth mesh K40.90(Right) - Tom Blanton DO Familial anesthetic complications: None Was Beta Anita taken within 24 hours: N/A Was Clonidine taken within 24 hours: N/A Last intake: Intake Last Liquid Date 04/11/23 Last Liquid Time 23:59 Last Solid Date 04/11/23 Last Solid Time 14:00 Social Alcohol (cirrhosis) and No alcohol Exam alert, oriented x 3, clear to auscultation bilaterally and regular rate & rhythm Airway Mallampati: Class III Dentition: full and other (missing) CV/HEM Congestive Heart Failure and Hypertension Hepatic Cirrhosis (alcoholic w/ ascites hx) GI esophageal varices Anesthetic Plan ASA status: 4 Anesthesia: General Risk of > 500 ml blood loss (7ml/kg in children): No Medications/Allergies Home Medications Medication Instructions Recorded Confirmed Last Taken Type multivitamin 1 tab PO .THREE TIMES A WEEK 07/27/20 04/09/23 04/11/23 History L.acidophil-L.casei-B.bifid-B.longum-FOS 1 cap PO DAILY 02/22/23 04/09/23 04/11/23 History 2 billion cell-50 mg capsule (Probiotic Blend) cyanocobalamin (vitamin B-12) 5,000 mcg sublingual DAILY 02/22/23 04/09/23 04/12/23 04:00 History 5,000 mcg sublingual tablet (Vitamin B-12) ferrous sulfate 325 mg (65 mg 325 mg PO DAILY PRN unknown 02/22/23 04/09/23 04/12/23 04:00 History iron) tablet (iron) simethicone 125 mg capsule (Gas-X 125 - 250 mg PO DAILY PRN 02/22/23 04/09/23 04/12/23 04:00 History Extra Strength) Abdominal Distention furosemide 20 mg tablet 40 mg PO DAILY PRN swelling 90 03/04/23 04/09/23 04/11/23 Rx days #120 tabs potassium chloride 10 mEq 20 - 40 meq PO BID PRN when takes 03/04/23 04/09/23 04/12/23 04:00 Rx tablet,extended release lasix #60 tabs spironolactone 50 mg tablet 50 mg PO BID 90 days #180 tabs 03/04/23 04/09/23 04/11/23 Rx calcium 167 mg-vitamin D3 1.67 1 cap PO DAILY 04/12/23 04/12/23 04/12/23 04:00 History mcg-magnesium 83 mg capsule Allergies Allergy/AdvReac Type Severity Reaction Status Date / Time No Known Allergies Allergy Verified 04/09/23 10:28 Current Medications Generic Name Dose Route Start Last Admin Trade Name Freq PRN Reason Stop Dose Admin Sodium Chloride 1,000 mls @ 30 mls/hr 04/12/23 06:00 04/12/23 06:13 Sodium Chloride 0.9% IV 04/13/23 05:59 30 mls/hr .Q24H CONSTANCE Administration PFSH Anesthesia Medical History Acute GI bleeding Alcoholism, chronic Anemia due to acute blood loss Cardiomegaly GERD (gastroesophageal reflux disease) History of alcoholism Hypercholesteremia Hypertension Liver disease, chronic, due to alcohol Type 2 diabetes mellitus Social History Smoking and tobacco/nicotine status: former use of tobacco/nicotine Quit status (tobacco/nicotine): not considering quitting Second hand smoke exposure: No Alcohol intake: current Alcohol intake frequency: 0-2 Drinks per Day Substance/Drug Use: never Current gender identity: Male Data Anesthesia 04/12/23 06:32 04/12/23 06:15 Short CBC 04/12/23 Range/Units 06:32 WBC 4.21 (3.29-11.43) 10^3/uL Hgb 8.20 L (11.27-16.99) g/dL Hct 26.7 L (37-53) % MCV 99.6 (82-101) fl Plt Count 126 L (157-399) 10^3/cmm Neut % (Auto) 71.4 % Neut # (Auto) 3.01 (1.8-7.7) 10^3/uL Cardiac Studies: Echocardiogram Ultrasound 07/15/20
[2023-04-12 06:57] LABS: INR 1.93 (0.8-1.2)
--- NOTE | 2023-04-12 06:58 | W.PM.OPSUD ---
Surgery/Procedure H&P Update DATE OF PROCEDURE: April 12, 2023 DATE H&P PERFORMED: 03/16/23 H&P UPDATE INFORMATION: I have reviewed H&P completed within last 30 days, I have examined patient prior to procedure and Changes to prior documentation as noted here (Patient has an elevated INR. We will discuss with anesthesia and likely transfuse FFP prior to surgery) PLANNED PROCEDURE: Operation Date: 04/12/23 07:00 Proposed Procedures p 97460 lap right inguinal hernia repair iwth mesh K40.90(Right) - Tom Blanton DO
[2023-04-12 07:02] LABS: Blood Urea Nitrogen 10 mg/dL (6-20); Carbon Dioxide 21 mmol/L (22-29); Chloride 101 mmol/L (98-107); Glomerular Filtration Rate 141.5 mL/min (90-130); Glucose 120 mg/dL (65-115); Osmolality Calculated 268 mOsm/kg (285-295); Sodium 129 mmol/L (136-145)
[2023-04-12 07:06] LABS: Anion Gap 11.6 (5-19); Potassium 4.6 mmol/L (3.5-5.1)
[2023-04-12] MEDS: ceFAZolin 2,000 MG in sodium chloride 0.9% (plus) 50 ML 100 MG IV (09:39)
[2023-04-12] MEDS: lidocaine-epi 2% 20 mL INJ INJECTION (10:09)
--- NOTE | 2023-04-12 11:00 | PM.OP ---
Operative Report Date of procedure: April 12, 2023 Pre-op diagnosis: Left inguinal hernia Post-op diagnosis: Indirect left inguinal hernia Procedure done: Laparoscopic cholecystectomy Implants: Large right 3D max Bard mesh Surgicel Specimens removed/disposition: None Surgeon: Tom Blanton DO Anesthesia: General Estimated blood loss (mL): 10 Complications: None apparent Brief History: This very pleasant 52-year-old gentleman with cirrhosis and ascites who presented to my office with a large right inguinal hernia. Laparoscopic repair with mesh was indicated. The risks and benefits were explained and documented. Procedure: Prior to surgery patient's INR was higher than 1.9. Therefore he was transfused 4 units FFP preoperatively. Patient was wheeled into the operative room and placed on the OR table in a supine position. Abdomen was inspected prepped and draped in usual sterile fashion. Time-out was performed and all present were in agreement. A 15 blade scalpel was used to make 1.2 centimeter incision infraumbilically. Combination of sharp and blunt dissection was performed down to the anterior rectus sheath which was opened sharply. The dissecting balloon was then inserted into the space of Retzius and blown up. We put the camera into the port and identified that we were in the correct space. I then placed 2 5 millimeter trocars suprapubically in the midline. I then used endokitners to bluntly dissect in the space of Retzius out laterally. An indirect inguinal hernia was identified on the right. Blunt dissection was performed to dissect down the hernia sac until the vas deferens dove medially. A large right inguinal mesh was then placed into the space of Retzius. The mesh was unrolled and tacked once medially at the pubic bone. The mesh laid out nicely over the spermatic cord. A defect in the peritoneum was closed with endoclips. A piece of Surgicel was placed into the pelvis for hemostasis. I watched the hernia sac remained in place as insufflation was removed. Incisions were closed with 4-0 Monocryl in a subcuticular interrupted fashion. Skin glue was applied. Patient tolerated the procedure well.
--- NOTE | 2023-04-12 12:12 | PC.NURSE ---
1205 pt c/o of need to void. vd. 50 ml mendoza urine.
--- NOTE | 2023-04-12 12:14 | PC.NURSE ---
pt states feels like i need to pee again already. informed pt that he had a catheter and will feel the need to vd. pt eating crackers and drinking soda.
--- NOTE | 2023-04-12 12:16 | PC.NURSE ---
1200 pressure dressing to abdomen intact. no drainage noted at this time.
[2023-04-12] MEDS: oxyCODONE-APAP 5-325 mg Tablet 1 TAB PO (12:28)
--- NOTE | 2023-04-12 13:05 | ANE.PACU2 ---
Inpatient post-anesthesia follow up: Airway intact: Yes Vital signs: Temperature 97.6 F Pulse Rate 106 Respiratory Rate 20 Blood Pressure 151/88 Pulse Oximetry 100 Oxygen Delivery Me thod Room Air Oxygen Flow Rate Fraction of Inspir ed Oxygen Hydration adequate: Yes Nausea and vomiting: Yes Pain level: 1 Mental status: Baseline
== END 2023-04-12 13:05 | disposition home or self-care (01) ==
PROVIDERS: Anesthesiology; PCP Family Medicine; Visit Provider Surgery
PROC: (CPT 49650; principal; 2023-04-12 07:00)
DX: K40.90 Unilateral inguinal hernia, without obstruction or gangrene, not specified as recurrent (principal); I11.0 Hypertensive heart disease with heart failure; I50.9 Heart failure, unspecified; K74.60 Unspecified cirrhosis of liver; E11.9 Type 2 diabetes mellitus without complications; Z87.891 Personal history of nicotine dependence
CPT/HCPCS: 49650; 36415; 36430; 80048; 85025; 85610; 86850; 86900; 86927; C1781; J0690; J1100; J2250; J2371; J2405; J2704; J3010; J3490; J7030; P9017; P9045

== ENCOUNTER → 2023-06-23 11:50 | Outpatient (BNVA) | payer BC, SELFPAY | PROVIDERS: PCP Family Medicine; Visit Provider Emergency Medicine | DX: U07.1 COVID-19 (principal); L76.33 Postprocedural seroma of skin and subcutaneous tissue following a dermatologic procedure | CPT/HCPCS: 87426 ==

== ENCOUNTER 2023-07-08 11:28 | Day surgery (SDC) | payer BC, SELFPAY ==
[2023-07-08] VITALS (10 sets, daily range): BP systolic 137–161; BP diastolic 88–103; PULSE 98–106; RESP 17–23; TEMP 36.8–37.1; O2SAT 95–99; BMI 32.5
[2023-07-08] MEDS: sodium chloride 0.9% 1,000 ML 30 ML IV (12:05)
--- NOTE | 2023-07-08 12:28 | W.PM.OPSUD ---
Surgery/Procedure H&P Update DATE OF PROCEDURE: July 08, 2023 DATE H&P PERFORMED: 06/30/23 H&P UPDATE INFORMATION: I have reviewed H&P completed within last 30 days, I have examined patient prior to procedure and No changes to prior documentation PLANNED PROCEDURE: Operation Date: 07/08/23 13:25 Proposed Procedures p 01173 laparoscopic umbilical hernia repair with mesh K42.9,Z98.890,Z87.19 ,(Not Applicable) - Tom Blanton DO
[2023-07-08 12:30] LABS: Blood Urea Nitrogen 7 mg/dL (6-20); Calcium 7.8 mg/dL (8.5-10.5); Carbon Dioxide 17 mmol/L (22-29); Chloride 105 mmol/L (98-107); Glomerular Filtration Rate 141.5 mL/min (90-130); Glucose 97 mg/dL (65-115); Osmolality Calculated 270 mOsm/kg (285-295); Sodium 131 mmol/L (136-145)
[2023-07-08 12:31] LABS: Anion Gap 13.7 (5-19); Potassium 4.7 mmol/L (3.5-5.1)
--- NOTE | 2023-07-08 13:14 | P.ANESASSM_ITS ---
Pre-Anesthetic Assessment Height/Weight: Height 1.75 m Weight 99.79 kg Temp Pulse Resp BP Pulse Ox O2 Del Method 98.2 F 99 18 143/94 99 Room Air 07/08/23 11:54 07/08/23 11:54 07/08/23 11:54 07/08/23 11:54 07/08/23 11:54 07/08/23 11:54 Operation Date: 07/08/23 13:25 Proposed Procedures p [id number] laparoscopic umbilical hernia repair with mesh K42.9,Z98.890,Z87.19 ,(Not Applicable) - Tom Blanton DO Familial anesthetic complications: none Was Beta Anita taken within 24 hours: N/A Was Clonidine taken within 24 hours: N/A Last intake: Intake Last Liquid Date 07/08/23 Last Liquid Time 08:30 Last Solid Date 07/07/23 Last Solid Time 14:00 Social Alcohol and Tobacco Exam alert, oriented x 3 and regular rate & rhythm Airway Submandibular: within normal limits Cervical ROM: within normal limits Mallampati: Class II CV/HEM Anemia and Hypertension CONCLUSIONS 1-Normal left ventricular cavity size. Normal left ventricular systolic function. Left ventricular ejection fraction is estimated at 65 %. Normal diastolic function. 2-Moderately thickened mitral valve. No mitral valve stenosis. Mild mitral valve regurgitation. 3-Mild aortic valve calcification. No aortic valve stenosis. No aortic valve regurgitation. 4-Tricuspid valve sclerosis. Mild tricuspid valve regurgitation. 5-Yvvp-ekcfp pleural effusion noted 6-There are no prior echocardiogram studies to compare. Yeison Cook MD (Electronically Signed) Final Date: 15 July 2020 Hepatic Cirrhosis Anesthetic Plan ASA status: 3 Anesthesia: General Medications/Allergies Home Medications Medication Instructions Recorded Confirmed Last Taken Type multivitamin 1 tab PO .THREE TIMES A WEEK 07/27/20 07/07/23 07/07/23 History L.acidophil-L.casei-B.bifid-B.longum-FOS 1 cap PO DAILY 02/22/23 07/07/23 07/07/23 History 2 billion cell-50 mg capsule (Probiotic Blend) cyanocobalamin (vitamin B-12) 5,000 mcg sublingual DAILY 02/22/23 07/07/23 07/07/23 History 5,000 mcg sublingual tablet (Vitamin B-12) ferrous sulfate 325 mg (65 mg 325 mg PO DAILY PRN unknown 02/22/23 07/07/23 07/07/23 History iron) tablet (iron) simethicone 125 mg capsule (Gas-X 125 - 250 mg PO DAILY PRN 02/22/23 07/07/23 07/07/23 History Extra Strength) Abdominal Distention calcium 167 mg-vitamin D3 1.67 1 cap PO DAILY 04/12/23 07/07/23 07/07/23 History mcg-magnesium 83 mg capsule oxycodone 5 mg tablet 5 mg PO Q6H PRN pain #20 tabs 04/12/23 07/07/23 07/07/23 Rx furosemide 20 mg tablet 40 mg (2 x 20 mg) PO DAILY PRN 06/01/23 07/07/23 07/07/23 Rx swelling 90 days #120 tabs potassium chloride 10 mEq 20 - 40 meq (2 - 4 x 10 mEq) PO 06/01/23 07/07/23 07/07/23 Rx tablet,extended release BID PRN when takes lasix #60 tabs vrhzffibgasgrzi-bwdnxsdlhjeuyxe-YC 5 ml PO Q6H PRN cold symptoms #118 06/23/23 07/07/23 Unknown Rx 2 mg-30 mg-10 mg/5 mL oral syrup mL (Bromfed DM) spironolactone 50 mg tablet 50 mg PO DAILY 07/08/23 07/08/23 07/07/23 History Allergies Allergy/AdvReac Type Severity Reaction Status Date / Time adhesive tape AdvReac Intermediate RASH Verified 07/08/23 11:47 Current Medications Generic Name Dose Route Start Last Admin Trade Name Freq PRN Reason Stop Dose Admin Sodium Chloride 1,000 mls @ 30 mls/hr 07/08/23 11:45 07/08/23 12:05 Sodium Chloride 0.9% IV 07/09/23 11:44 30 mls/hr .Q24H CONSTANCE Administration PFSH Anesthesia Medical History Alcoholism, chronic Anemia due to acute blood loss Acute GI bleeding Liver disease, chronic, due to alcohol He has had Hep B, C, and HIV serology in 2020 which were negative. Cardiomegaly Hypercholesteremia GERD (gastroesophageal reflux disease) History of alcoholism Type 2 diabetes mellitus Hypertension Surgical History Hx of inguinal hernia repair 04/12/23 Dr Blanton lap left inguinal hernia repair with mesh Social History Smoking and tobacco/nicotine status: former use of tobacco/nicotine Quit status (tobacco/nicotine): not considering quitting Second hand smoke exposure: No Alcohol intake: current Alcohol intake frequency: 0-2 Drinks per Day Substance/Drug Use: never Current gender identity: Male Data Anesthesia 07/08/23 12:07 BMP 07/08/23 12:07 Sodium 131 L Potassium 4.7 Chloride 105 Carbon Dioxide 17 L BUN 7 Creatinine 0.6 L Glucose 97 Calcium 7.8 L Cardiac Studies: 2 Echocardiogram Ultrasound 07/15/20
[2023-07-08] MEDS: ceFAZolin 2,000 MG in sodium chloride 0.9% (plus) 50 ML 100 MG IV (13:34)
[2023-07-08] MEDS: lidocaine-epi 2% 20 mL INJ INJECTION (13:52)
[2023-07-08] MEDS: tranexamic acid 1,000 mg/10mL SDV 1000 MG IV ×2 (14:10→15:10)
--- NOTE | 2023-07-08 14:44 | PM.OP ---
Operative Report Date of procedure: July 08, 2023 Pre-op diagnosis: Umbilical hernia Post-op diagnosis: same Procedure done: Laparoscopic repair of umbilical hernia with mesh Implants: 11 cm round Ventralight mesh Specimens removed/disposition: None Surgeon: Tom Blanton DO Anesthesia: General Estimated blood loss (mL): 20 Complications: None apparent Brief History: This is a very pleasant 52-year-old gentleman with alcoholic liver failure who recently underwent a laparoscopic right inguinal hernia repair and then developed an umbilical hernia. He desired repair. The risk and benefits were explained and documented. Procedure: Patient was wheeled into the operative room and placed on the OR table in a supine position. Abdomen was inspected prepped and draped in usual sterile fashion. Time-out was performed and all present were in agreement. A 15 blade scalp was used to make a 5 millimeter incision left upper quadrant. A Veress needle was placed into the incision and intra-abdominal insufflation was brought to 15 millimeters of mercury. A 12 millimeter trocar was placed into the left lower quadrant. The energy but device was then used to cut out the hernia sac which was discarded. Hernia defect measured 1 cm in greatest diameter. An 11 cm Ventralight mesh was placed into the abdomen and brought up through the umbilicus using an the Walker-Beatriz. The mesh was then tacked in place in a double crown fashion. Due to his liver failure, he had a small amount of bleeding from all surfaces that were even touched. Hemostasis was noted at the end of the surgery however. The skeleton of the mesh was removed via the left lower quadrant. The left lower quadrant port site was closed with an 0 Vicryl suture in a Walker-Beatriz in a jwlkbx-px-deivr fashion. Incisions were closed with 4 O Vicryl in a subcuticular interrupted fashion. Skin glue was applied. A dressing that included cotton balls and a Tegaderm was placed over the umbilicus. Patient tolerated the procedure well.
[2023-07-08] MEDS: oxyCODONE 5 mg IR Tab/Cap PO (15:45)
--- NOTE | 2023-07-08 15:51 | ANE.PACU2 ---
Inpatient post-anesthesia follow up: Airway intact: Yes Vital signs: Temperature 98.8 F Pulse Rate 105 Respiratory Rate 20 Blood Pressure 137/88 Pulse Oximetry 95 Oxygen Delivery Me thod Room Air Oxygen Flow Rate Fraction of Inspir ed Oxygen Hydration adequate: Yes Nausea and vomiting: No Pain level: 3 Mental status: Baseline
== END 2023-07-08 16:10 | disposition home or self-care (01) ==
PROVIDERS: PCP Family Medicine; Visit Provider Surgery
PROC: 0WQF4ZZ Repair Abdominal Wall, Percutaneous Endoscopic Approach (ICD-10-PCS; CPT 49595; principal; 2023-07-08 13:15)
DX: K42.9 Umbilical hernia without obstruction or gangrene (principal); I10 Essential (primary) hypertension; Z87.891 Personal history of nicotine dependence
CPT/HCPCS: 49595; 36415; 80048; C1781; J0690; J2704; J3010; J3490; J7030

== ENCOUNTER 2023-08-04 18:21 | Observation (INO) | payer BC, SELFPAY ==
[2023-08-04] VITALS (9 sets, daily range): BP systolic 105–145; BP diastolic 71–88; PULSE 104–111; RESP 17–21; O2SAT 95–97; BMI 35.6
--- NOTE | 2023-08-04 18:55 | XRR_ITS ---
PROCEDURE INFORMATION: Exam: XR Chest Exam date and time: 08/04/2023 7:28 PM Age: 52 years old Clinical indication: Shortness of breath TECHNIQUE: Imaging protocol: Radiologic exam of the chest. Views: 1 view. COMPARISON: CT chest abdpel [id number] 09/17/2022 9:46 PM FINDINGS: Lungs: No focal consolidation. Pleural spaces: No evidence of pneumothorax. No evidence of pleural effusion. Heart/Mediastinum: Cardiomediastinal silhouette is within normal limits. Bones/joints: No evidence of acute osseous abnormality. XR/XR chest 1V portable [id number] IMPRESSION: 1. No acute cardiopulmonary abnormality.
--- NOTE | 2023-08-04 18:56 | ECG_ITS ---
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 Measurements Intervals [place] Rate: 109 P: 21 ID: [id number] QRS: -5 QRSD: 103 T: 24 QT: 363 QTc: 489 Interpretive Statements SINUS TACHYCARDIA ABNORMAL RHYTHM ECG Compared to ECG 02/22/2023 08:02:12 Sinus rhythm no longer present T-wave abnormality no longer present Electronically Signed On 08-05-2023 10:51:02 IT SALES CONSULTANT by Elsie Lloyd M.D. [id number]
--- NOTE | 2023-08-04 19:03 | ED_ITS ---
HPI - SOB/Dyspnea 2 General: Chief Complaint: Shortness of Breath/Dyspnea Stated Complaint: swelling, chest pressure sob Time Seen by Provider: 08/04/23 18:31 History of Present Illness: HPI Narrative: 52-year-old male who presents with abdom inal distention due to cirrhosis and alcohol abuse. Patient states the distention has become so significant that he is having trouble breathing. He is also having significant low back pain. He states he is taking both Lasix and Aldactone but only urinating infrequently, small amounts. He denies vomiting, no coffee-ground emesis or bright red bloody emesis. No prior history of GI bleeding. He states he has been admitted in the past and they attempted ultrasound guided paracentesis but it was unsuccessful. He continues to drink 1 pint of whiskey daily. He denies a prior history of alcohol withdrawal. Associated symptoms: Reports palpitations; Deny fever(s) Review of Systems 2 Const: Reports: chills and change in appetite; Denies: fever(s) or body aches Eyes: Reports: other (Positive jaundice); Denies: change in vision Card: Reports: palpitations and swelling of feet/ankles Resp: Reports: dyspnea; Denies: productive cough or pain on inspiration GI: Reports: diarrhea and other (Positive abdominal distention); Denies: constipation PFSH ED 2 PFSH: Medical History Alcoholism, chronic Anemia due to acute blood loss Acute GI bleeding Liver disease, chronic, due to alcohol He has had Hep B, C, and HIV serology in 2020 which were negative. Cardiomegaly Hypercholesteremia GERD (gastroesophageal reflux disease) History of alcoholism Type 2 diabetes mellitus Hypertension Surgical History Hx of inguinal hernia repair 04/12/23 Dr Harvinder chavez left inguinal hernia repair with mesh Social History Smoking and tobacco/nicotine status: former use of tobacco/nicotine Quit status (tobacco/nicotine): not considering quitting Second hand smoke exposure: No Alcohol intake: current Alcohol intake frequency: 0-2 Drinks per Day Substance/Drug Use: never Current gender identity: Male Physical Exam 2 Narrative: EXAM NARRATIVE: General : Patient is well developed , no acute distress, oriented x3 Head : Normal cephalic, a-traumatic. Ears : Pinnae and external canal are normal. Hearing is normal. Eyes : PERRLA, icteric sclera. No conjunctival discharge. Nose : Mucous membranes are without erythema. Throat : buccal mucosa is normal, gums are without significant recession or hypertrophy. Lungs : Equal chest rise bilaterally, no use of accessory muscles, trachea is midline. Cor : Rate and rhythm are normal. Abdomen : Soft, distended, positive fluid wave, umbilical hernia which is not reducible. Pitting edema of the abdominal wall. Abdomen is severely distended with ascites. Extremities : 4+ pitting edema of his lower extremities bilaterally, no cyanosis or clubbing, dorsalis pedis pulses are present bilaterally, non-tender to palpation of calves. Upper extremities are normal bilaterally. Back : non-tender to palpation, no CVA tenderness. Neuro : CN II - XII intact, Upper and lower extremities have equal and full strength Skin: Jaundiced Course 2 Vital Signs: Vital signs: Vital Signs Pulse Rate 111 H 08/04/23 18:29 Respiratory Rate 17 08/04/23 18:29 Blood Pressure 141/86 08/04/23 18:29 Pulse Oximetry 97 08/04/23 18:29 Oxygen Delivery Me thod Room Air 08/04/23 18:29 MDM - SOB/Dyspnea Medical Decision Making 52-year-old male with a history of alcohol abuse and cirrhosis who presents with a large amount of ascites and associated shortness of breath. He also has 4+ pitting edema. Will obtain labs including coag studies, ammonia level. Will give the patient IV Lasix while waiting on his laboratory evaluation. Most likely the patient will need admission for ultrasound-guided paracentesis Medical Records I reviewed the patient's medical records. Lab Data On the patient's laboratory evaluation, he is anemic with hemoglobin of 8.5, hematocrit of 26.8. That similar to his previous values. He is hypokalemic with a potassium of 2.5. He is also hyponatremic with a sodium of 129. BUN is 9, creatinine 0.9. His chloride is 99, CO2 is 21. Glucose 122. He is coagulopathic with PT 23.4, INR 2.0 but this is similar to his prior as well. Total bilirubin is elevated at 7.6. He is also hypomagnesemic at 1.5. He has been given oral potassium. He has been given IV potassium and IV magnesium has been ordered. He was also given Bumex 2 mg IV for his anasarca. Given the hypokalemia, hyponatremia and the significant amount of ascites, patient will need admission. On his chest x-ray, he has no significant infiltrate or effusions per my interpretation. Patient's bilirubin and sodium levels have been similar in the past. Discussed the case with Dr. Reagan who agrees with admission. Will order ultrasound-guided paracentesis. 08/04/23 18:58 08/04/23 18:58 Labs/Radiology: Radiology Impressions Chest X-Ray 08/04/23 18:55 IMPRESSION: 1. No acute cardiopulmonary abnormality. Abdomen/Pelvis CT 08/04/23 20:19 IMPRESSION: 1. Decompensated hepatic cirrhosis with moderate-large ascites, splenomegaly and gastroesophageal varices. 2. Nonocclusive thrombus in the right portal vein. There may be chronic thrombosis of the left portal vein branches as well given the observed collateralization. Consider follow-up nonemergent MRI of the abdomen with/without contrast. 3. Horseshoe kidney. 4. Fluid containing periumbilical ventral abdominal hernia. Laboratory Results WBC 6.48 10^3/uL (3.29-11.43) 08/04/23 18:58 RBC 2.87 10^6/uL (3.85-5.65) L 08/04/23 18:58 Hgb 8.50 g/dL (11.27-16.99) L 08/04/23 18:58 Hct 26.8 % (37-53) L 08/04/23 18:58 MCV 93.4 fl (82-101) 08/04/23 18:58 MCH 29.6 pg (27-33) 08/04/23 18:58 MCHC 31.7 g/dL (30-55) 08/04/23 18:58 RDW 21.5 % (12.1-15.1) H 08/04/23 18:58 Plt Count 182 10^3/cmm (157-399) 08/04/23 18:58 MPV 9.8 fL (7.4-10.4) 08/04/23 18:58 Neut % (Auto) 65.4 % 08/04/23 18:58 Lymph % (Auto) 12.0 % 08/04/23 18:58 [place] % (Auto) 14.7 % 08/04/23 18:58 Eos % (Auto) 5.7 % 08/04/23 18:58 Baso % (Auto) 1.1 % 08/04/23 18:58 Neut # (Auto) 4.24 10^3/uL (1.8-7.7) 08/04/23 18:58 Lymph # (Auto) 0.8 10^3/uL (0.8-4.8) 08/04/23 18:58 [place] # (Auto) 1.0 10^3/uL (0.2-0.9) H 08/04/23 18:58 Eos # (Auto) 0.4 10^3/uL (0.0-0.8) 08/04/23 18:58 Baso # (Auto) 0.1 10^3/uL (0.0-0.1) 08/04/23 18:58 Nucleated RBC % (auto) 0 % 08/04/23 18:58 Nucleated RBCs # 0.0 /100WBC 08/04/23 18:58 PT 23.40 SECONDS (12.1-14.9) H 08/04/23 18:58 INR 2.00 (0.8-1.2) H 08/04/23 18:58 APTT 42.2 SECONDS (23.9-36.7) H 08/04/23 18:58 Sodium 129 mmol/L (136-145) L 08/04/23 18:58 Potassium 2.5 mmol/L (3.5-5.1) L* 08/04/23 18:58 Chloride 99 mmol/L (98-107) 08/04/23 18:58 Carbon Dioxide 21 mmol/L (22-29) L 08/04/23 18:58 Anion Gap 11.5 (5-19) 08/04/23 18:58 BUN 9 mg/dL (6-20) 08/04/23 18:58 Creatinine 0.9 mg/dL (0.7-1.2) 08/04/23 18:58 GFR Calculation 88.6 mL/min (90-130) L 08/04/23 18:58 Glucose 122 mg/dL (65-115) H 08/04/23 18:58 Calculated Osmolality 268 mOsm/kg (285-295) L 08/04/23 18:58 Calcium 6.9 mg/dL (8.5-10.5) L 08/04/23 18:58 Magnesium 1.5 mg/dL (1.7-2.3) L 08/04/23 18:58 Total Bilirubin 7.6 mg/dL (0.15-1.2) H* 08/04/23 18:58 AST 65 U/L (0-40) H 08/04/23 18:58 ALT 26 U/L (0-41) 08/04/23 18:58 Alkaline Phosphatase 511 U/L (40-130) H 08/04/23 18:58 Ammonia 74 umol/L (16-60) H 08/04/23 19:20 Total Protein 5.8 g/dL (6.6-8.7) L 08/04/23 18:58 Albumin 2.4 g/dL (3.5-5.2) L 08/04/23 18:58 Globulin 3.4 g/dL (1.3-4.6) 08/04/23 18:58 Lipase 89 U/L (13-60) H 08/04/23 18:58 Urine Color Yellow (Yellow) 08/04/23 19:35 Urine Appearance Clear (CLEAR) 08/04/23 19:35 Urine pH 5 (5-7) 08/04/23 19:35 Ur Specific [place] 1.015 (1.005-1.030) 08/04/23 19:35 Urine Protein Trace (Negative) 08/04/23 19:35 Urine Glucose (UA) Norm (Normal) 08/04/23 19:35 Urine Ketones Negative (Negative) 08/04/23 19:35 Urine Blood Neg (Negative) 08/04/23 19:35 Urine Nitrate Negative (Negative) 08/04/23 19:35 Urine Bilirubin 2+ (Negative) H 08/04/23 19:35 Urine Urobilinogen 4 mg/dL (Negative) H 08/04/23 19:35 Ur Leukocyte Esterase Negative (Negative) 08/04/23 19:35 Urine RBC 0-4 /hpf (0-2) H 08/04/23 19:35 Urine WBC 0-4 /hpf (0-5) H 08/04/23 19:35 Ur Squamous Epith Cells 0-4 /hpf (0-5) H 08/04/23 19:35 Amorphous Sediment Not Reportable 08/04/23 19:35 Urine Bacteria Trace /hpf (NONE) 08/04/23 19:35 Hyaline Casts 5-10 /lpf H 08/04/23 19:35 Urine Mucus 1+ /hpf 08/04/23 19:35 Urine Opiates Screen Negative ng/mL (Negative) 08/04/23 19:35 Ur Barbiturates Screen Negative ng/mL (Negative) 08/04/23 19:35 Ur Phencyclidine Scrn Negative ng/mL (Negative) 08/04/23 19:35 Ur Amphetamines Screen Negative ng/mL (Negative) 08/04/23 19:35 U Benzodiazepines Scrn Negative ng/mL (Negative) 08/04/23 19:35 Urine Cocaine Screen Negative ng/mL (Negative) 08/04/23 19:35 U Marijuana (THC) Screen Negative ng/mL (Negative) 08/04/23 19:35 Ethyl Alcohol 183 mg/dL (0-10) H 08/04/23 18:58 All radiology interpretation(s) finalized by discharge ED provider radiology interpretation(s): CT of the abdomen and pelvis has been obtained. It does show large volume ascites as well as portal vein thrombosis. Discharge Plan Discharge Patient Disposition: Placed in Observation Clinical Impression: Liver disease, chronic, due to alcohol, Ascites due to alcoholic cirrhosis, Hypokalemia, Hyponatremia, Portal vein thrombosis, Horseshoe kidney Condition: Stable Prescriptions: No Action ujqlgvxvloartpl-xphhphacd-DC [Bromfed DM] 2-30-10 mg/5 mL syrup 5 ml PO Q6H PRN (Reason: cold symptoms) Qty: 118 0RF potassium chloride 10 mEq tablet extended release 20 - 40 meq PO BID PRN (Reason: when takes lasix) Qty: 60 2RF furosemide 20 mg tablet 40 mg PO DAILY PRN (Reason: swelling) 90 Days Qty: 120 1RF multivitamin Tablet 1 tab PO .THREE TIMES A WEEK simethicone [Gas-X Extra Strength] 125 mg Capsule 125 - 250 mg PO DAILY PRN (Reason: Abdominal Distention) ferrous sulfate [iron] 325 mg (65 mg iron) Tablet 325 mg PO DAILY PRN (Reason: unknown) cyanocobalamin (vitamin B-12) [Vitamin B-12] 5,000 mcg Tablet, Sublingual 5,000 mcg SUBLINGUAL DAILY Probiotic Blend 2 billion cell-50 mg Capsule 1 cap PO DAILY Rx Instructions: give with meal/snack calcium 26-vit D3-magnesium 15 167 mg calcium- 1.67 mcg-83 mg Capsule 1 cap PO DAILY Rx Instructions: only takes 2-3 times a week oxycodone 5 mg tablet 5 mg PO Q6H PRN (Reason: pain) Qty: 20 0RF Hold Instructions: Resume on 07/13/23. spironolactone 50 mg tablet 50 mg PO DAILY oxycodone 5 mg tablet 5 mg PO Q6H PRN (Reason: pain) Qty: 20 0RF Referrals: Rosa M Morrison MD [Primary Care Provider] - Coding Level of Care Code ED Help Desk Rep for Tiffany Metz
[2023-08-04 19:04] LABS: Basophils # 0.1 10^3/uL (0.0-0.1); Basophils % 1.1 %; Eosinophils # 0.4 10^3/uL (0.0-0.8); Eosinophils % 5.7 %; Hematocrit 26.8 % (37-53); Lymphocytes # 0.8 10^3/uL (0.8-4.8); Mean Corpuscular HGB Conc 31.7 g/dL (30-55); Mean Corpuscular Hemoglobin 29.6 pg (27-33); Mean Corpuscular Volume 93.4 fl (82-101); Mean Platelet Volume 9.8 fL (7.4-10.4); Monocytes % 14.7 %; Neutrophils # 4.24 10^3/uL (1.8-7.7); Neutrophils % 65.4 %; Nucleated Red Blood Cells % 0 %; Platelet Count 182 10^3/cmm (157-399); Red Blood Count 2.87 10^6/uL (3.85-5.65); Red Cell Distribution Width 21.5 % (12.1-15.1); White Blood Count 6.48 10^3/uL (3.29-11.43)
[2023-08-04 19:10] LABS: Partial Thromboplastin Time 42.2 SECONDS (23.9-36.7)
[2023-08-04 19:14] LABS: Alanine Aminotransferase 26 U/L (0-41); Albumin Level 2.4 g/dL (3.5-5.2); Alcohol Level 183 mg/dL (0-10); Alkaline Phosphatase 511 U/L (40-130); Anion Gap 11.5 (5-19); Aspartate Amino Transferase 65 U/L (0-40); Blood Urea Nitrogen 9 mg/dL (6-20); Calcium 6.9 mg/dL (8.5-10.5); Carbon Dioxide 21 mmol/L (22-29); Chloride 99 mmol/L (98-107); Creatinine Clr Calc Pharmacy 113.0463; Globulin 3.4 g/dL (1.3-4.6); Glomerular Filtration Rate 88.6 mL/min (90-130); Glucose 122 mg/dL (65-115); Lipase 89 U/L (13-60); Magnesium 1.5 mg/dL (1.7-2.3); Osmolality Calculated 268 mOsm/kg (285-295); Sodium 129 mmol/L (136-145); Total Protein 5.8 g/dL (6.6-8.7)
[2023-08-04 19:16] LABS: Potassium 2.5 mmol/L (3.5-5.1); Total Bilirubin 7.6 mg/dL (0.15-1.2)
[2023-08-04] MEDS: bumetanide 0.25 mg/mL SDV 4 mL 2 MG IVP (19:36)
[2023-08-04] MEDS: potassium chloride ER 20 mEq Tablet 40 MEQ PO (19:43)
[2023-08-04] MEDS: potassium chloride premix 100 ML 25 MEQ IV (19:47)
[2023-08-04 19:49] LABS: Ammonia 74 umol/L (16-60)
[2023-08-04 19:50] LABS: Add Urine Microscopic? YES; Bilirubin Urine 2+ (Negative); Blood Urine Neg (Negative); Glucose Urine UA Norm (Normal); Ketones Urine Negative (Negative); Leukocyte Esterase Urine Negative (Negative); Nitrate Urine Negative (Negative); Protein Urine Trace (Negative); Specific Gravity, Urine 1.015 (1.005-1.030); Urine Appearance Clear (CLEAR); Urine Color Yellow (Yellow); Urobilinogen Urine 4 mg/dL (Negative); pH Urine 5 (5-7)
[2023-08-04 19:54] LABS: Amphetamines Screen Urine Negative (Negative); Barbiturates Screen Urine Negative (Negative); Benzodiazepines Screen Urine Negative (Negative); Cocaine Screen Urine Negative (Negative); Opiate Screen Urine Negative (Negative); PCP Screen Urine Negative (Negative); THC Screen Urine Negative (Negative)
[2023-08-04 20:01] LABS: Add Urine Culture? No; Bacteria Urine TRACE /hpf; Mucus Urine 1+ /hpf; RBC Urine 0-4 /hpf (0-2); Squamous Epithelial Cell Urine 0-4 /hpf (0-5); WBC Urine 0-4 /hpf (0-5)
--- NOTE | 2023-08-04 20:19 | CTR_ITS ---
PROCEDURE INFORMATION: Exam: CT Abdomen And Pelvis With Contrast Exam date and time: 08/04/2023 8:30 PM Age: 52 years old Clinical indication: Other: Abdominal distension TECHNIQUE: Imaging protocol: Computed tomography of the abdomen and pelvis with contrast. Radiation optimization: All CT scans at this facility use at least one of these dose optimization techniques: automated exposure control; mA and/or kV adjustment per patient size (includes targeted exams where dose is matched to clinical indication); or iterative reconstruction. Contrast material: OMNI 350; Contrast volume: 100 ml; Contrast route: INTRAVENOUS (IV); COMPARISON: CT abdomen pelvis w con* [id number] 02/22/2023 1:54 AM RADIATION DOSE METRICS: Total DLP (mGy-cm): 1326.34 FINDINGS: Lungs: Subsegmental bibasilar atelectasis. The visualized lung bases are otherwise grossly clear. Diaphragm: No evidence of diaphragmatic defect. Liver: Hepatic cirrhosis with evidence of portal hypertension including gastroesophageal varices and moderate-large ascites. Gallbladder and bile ducts: There is cholelithiasis. No inflammatory changes to suggest acute cholecystitis. No intrahepatic or extrahepatic biliary dilatation. Pancreas: Unremarkable. Spleen: Enlarged measuring approximately 17.5 cm in length. Adrenal glands: Unremarkable. Kidneys and ureters: Horseshoe kidney. There is a nonobstructive 4 mm right-sided renal stone. No evidence of hydronephrosis or ureteral stone. Stomach and bowel: No evidence of bowel obstruction or perienteric inflammatory changes. There is mild bowel wall edema, which may be secondary to hypoalbuminemia. There is nonspecific wall thickening of the lower rectum. Consider follow-up proctoscopy to exclude an underlying mucosal lesion. There has an 8 cm periumbilical hernia containing fluid. Appendix: Normal appendix. Intraperitoneal space: Moderate-large ascites. No evidence of free air or discrete fluid collection. Vasculature: No aneurysmal dilatation or dissection of the abdominal aorta. The celiac trunk, SMA and PRANAY are grossly patent. No evidence of IVC thrombus. There is nonocclusive thrombus within the right portal vein (for example, image 51 of the sagittal series 6), not significantly changed since February 2023. The left portal vein is attenuated with indistinctness of its branches raising the question of chronic thrombosis of one or more of its branches. There are multiple collaterals noted. The SMV and splenic veins are grossly patent. Lymph nodes: No adenopathy. Urinary bladder: Grossly unremarkable. Reproductive: Grossly unremarkable. Bones/joints: No evidence of acute fracture or aggressive osseous lesion. Soft tissues: There is diffuse superficial soft tissue edema. No evidence of fluid collection or hematoma in the superficial soft tissues. CT/CT abdomen pelvis w con* [id number] IMPRESSION: 1. Decompensated hepatic cirrhosis with moderate-large ascites, splenomegaly and gastroesophageal varices. 2. Nonocclusive thrombus in the right portal vein. There may be chronic thrombosis of the left portal vein branches as well given the observed collateralization. Consider follow-up nonemergent MRI of the abdomen with/without contrast. 3. Horseshoe kidney. 4. Fluid containing periumbilical ventral abdominal hernia.
[2023-08-04] MEDS: iohexol 350 mg/mL 500 mL Btl (per mL) IV (20:32)
[2023-08-04] MEDS: magnesium sulfate premix 2 GM/50 ML PIGGYBACK IV (21:04)
[2023-08-05] VITALS: BP 132/80; PULSE 116; RESP 14; TEMP 36.8; O2SAT 94
--- NOTE | 2023-08-05 00:30 | P.HP_ITS ---
Providers/Chief Complaint 2 Admitting Physician: Rigoberto Basurto MD Primary Care Provider: Ros aM Morrison MD Chief Complaint: swelling, chest pressure sob History of Present Illness Tonny Miller is a 52 year old male with a history of alcohol abuse, currently everyday drinker, alcoholic cirrhosis, history of variceal and gastric ulcer bleeding, portal hypertension presenting today with chief complaints of increasing abdominal distention, generalized bodyaches, and back pain. Patient recently underwent laparoscopic repair of umbilical hernia with mesh on July 08, 2023. Postoperatively patient states that he continued to drain from the port sites however this appears to be improving. On exam today he is noted to have massive tense ascites. He states he has needed paracentesis twice previously, however most recently this was 1-1/2 years ago. Patient states that usually his swelling stays under good control with diuretics, however lately this has not been the case. Review of systems is positive for insomnia, bilateral leg pain, bilateral lower extremity pitting edema. No complaints of any bleeding manifestations today. He has a dry cough over the past 7 days, no sputum production, no expectoration. No fever or chills. Review of Systems 2 General: Reports: 10 or more systems reviewed and unremarkable except in HPI and below Const: Denies: fever(s), chills or body aches Eyes: Denies: change in vision, blurry vision or photophobia ENMT: Reports: hoarseness; Denies: throat pain, enlarged tonsils, odynophagia or nasal congestion Card: Denies: chest pain, palpitations, irregular heart rhythm, edema, swelling of feet/ankles, lightheadedness, pre-syncope, dyspnea on exertion or orthopnea Resp: Denies: dyspnea, productive cough, non-productive cough, wheezing, stridor, pain on inspiration, change in phlegm color, hemoptysis or chest congestion GI: Denies: abdominal pain, nausea, vomiting, hematemesis, coffee ground emesis, dysphagia, heartburn, diarrhea, constipation, GI cramping, change in stool character, hematochezia or melena : Denies: flank pain, dysuria, urinary frequency, urinary urgency, urinary hesitancy or hematuria Musc: Denies: neck pain, back pain, extremity pain, joint swelling, joint warmth or deformity Neuro: Denies: headache(s), numbness in extremities, weakness in extremities, sensory changes, difficulty walking, frequent falls, dizziness, vertigo, behavioral changes, Slurred speech present or seizure-like activity Psych: Denies: anxiety, depression, suicidal ideation or homicidal ideation Endo: Denies: polyuria, polydipsia, tired all the time, cold intolerance or hot flashes Baldo/Lymph: Denies: easy bruising or easy bleeding Medications/Allergies Home Medications Medication Instructions Recorded Confirmed Last Taken Type multivitamin 1 tab PO .THREE TIMES A WEEK 07/27/20 08/04/23 07/07/23 History L.acidophil-L.casei-B.bifid-B.longum-FOS 1 cap PO DAILY 02/22/23 08/04/23 07/07/23 History 2 billion cell-50 mg capsule (Probiotic Blend) cyanocobalamin (vitamin B-12) 5,000 mcg sublingual DAILY 02/22/23 08/04/23 08/04/23 05:00 History 5,000 mcg sublingual tablet (Vitamin B-12) ferrous sulfate 325 mg (65 mg 325 mg PO DAILY PRN unknown 02/22/23 08/04/23 07/07/23 History iron) tablet (iron) simethicone 125 mg capsule (Gas-X 125 - 250 mg PO DAILY PRN 02/22/23 08/04/23 08/04/23 12:00 History Extra Strength) Abdominal Distention calcium 167 mg-vitamin D3 1.67 1 cap PO DAILY 04/12/23 08/04/23 08/04/23 05:00 History mcg-magnesium 83 mg capsule oxycodone 5 mg tablet 5 mg PO Q6H PRN pain #20 tabs 04/12/23 08/04/23 07/07/23 Rx furosemide 20 mg tablet 40 mg (2 x 20 mg) PO DAILY PRN 06/01/23 08/04/23 08/04/23 08:30 Rx swelling 90 days #120 tabs potassium chloride 10 mEq 20 - 40 meq (2 - 4 x 10 mEq) PO 06/01/23 08/04/23 08/04/23 05:00 Rx tablet,extended release BID PRN when takes lasix #60 tabs dlolqihyzskykyi-wdfqzimbnayoiph-UI 5 ml PO Q6H PRN cold symptoms #118 06/23/23 08/04/23 Unknown Rx 2 mg-30 mg-10 mg/5 mL oral syrup mL (Bromfed DM) spironolactone 50 mg tablet 50 mg PO DAILY 07/08/23 08/04/23 08/04/23 08:30 History folic acid 1 mg tablet 1 mg PO PRN 08/04/23 08/04/23 08/04/23 05:00 History pantoprazole 40 mg tablet,delayed 40 mg PO PRN 08/04/23 08/04/23 08/03/23 05:00 History release Allergies Allergy/AdvReac Type Severity Reaction Status Date / Time adhesive tape AdvReac Intermediate RASH Verified 08/04/23 18:31 PFSH Acute 2 PFSH: Medical History Alcoholism, chronic Anemia due to acute blood loss Acute GI bleeding Liver disease, chronic, due to alcohol He has had Hep B, C, and HIV serology in 2020 which were negative. Cardiomegaly Hypercholesteremia GERD (gastroesophageal reflux disease) History of alcoholism Type 2 diabetes mellitus Hypertension Surgical History Hx of inguinal hernia repair 04/12/23 Dr Harvinder chavez left inguinal hernia repair with mesh Social History Smoking and tobacco/nicotine status: former use of tobacco/nicotine Quit status (tobacco/nicotine): not considering quitting Second hand smoke exposure: No Alcohol intake: current Alcohol intake frequency: 0-2 Drinks per Day Substance/Drug Use: never Current gender identity: Male Vitals/I&O/Wt Last Vital Signs Temp 98.2 F 08/05/23 00:00 Pulse 116 H 08/05/23 00:00 Resp 14 08/05/23 00:00 BP 132/80 08/05/23 00:00 Pulse Ox 94 08/05/23 00:00 O2 Del Method Room Air 08/05/23 00:12 08/04/23 08/04/23 08/05/23 14:59 22:59 06:59 Intake Total 50 / 50 100 / 150 Balance 50 / 50 100 / 150 Weight last 48 hrs Weight 109.406 kg Weight 102.058 kg Physical Exam 2 Narrative: General: No acute distress, AO x3 HEENT: PERRLA, pupils bilaterally equal and reactive, pallors not present Chest: Bilateral scattered wheezing CVS: S1-S2 regular, no murmurs, no tachycardia, no gallops, no rubs Abdomen: Massively distended, tense ascites Neuro: No focal deficits, no facial deformity, AO x3, power 5/5 in all limbs Extremities: Bilateral lower extremity 2+ pitting edema. Data 08/04/23 18:58 08/04/23 18:58 Other Labs: CT/CT abdomen pelvis w con* [id number] IMPRESSION: 1. Decompensated hepatic cirrhosis with moderate-large ascites, splenomegaly and gastroesophageal varices. 2. Nonocclusive thrombus in the right portal vein. There may be chronic thrombosis of the left portal vein branches as well given the observed collateralization. Consider follow-up nonemergent MRI of the abdomen with/without contrast. 3. Horseshoe kidney. 4. Fluid containing periumbilical ventral abdominal hernia. XR/XR chest 1V portable [id number] IMPRESSION: 1. No acute cardiopulmonary abnormality. A&P Assessment and plan (1) Tense ascites: Patient presenting today with worsening abdominal distention, tense ascites on exam today. Suspect that most of his pain and lower abdominal and back discomfort is related to his tense ascites. CT of the abdomen and pelvis revealing moderate to large ascites. Plan on paracentesis in the morning to relieve discomfort. (2) Ascites due to alcoholic cirrhosis: Encouraged alcohol cessation. (3) Liver disease, chronic, due to alcohol: Chronic liver disease Several lab abnormalities including deranged INR, T. bili of 7.6(patient's baseline appears to be between 7.4-10.5 since February 2023), AST 65, alkaline phosphatase 511, ammonia of 74 (no symptoms of hepatic encephalopathy except for insomnia) , hypervolemic hyponatremia are all consistent with a known diagnosis of alcoholic liver cirrhosis. Creatinine is currently normal. Continue his home medications including Lasix 40 mg p.o. daily, spironolactone and as needed oxycodone for pain. (4) Alcoholism, chronic: Currently alcohol level of 183. Monitor for signs of withdrawal. (5) Hypokalemia: Potassium at 2.5 today, repleted in the emergency room with IV, recheck with a.m. labs. (6) Anemia: Chronic anemia related to alcoholic cirrhosis. Hemoglobin currently stable at 8.5 Continue p.o. iron and folic acid and thiamine supplementation. No current hematemesis. Has a history of GI bleed with a gastric ulcer and variceal bleeding. Continue Protonix 40 mg p.o. twice daily Patient gets outpatient endoscopic evaluation every 6 months with his hepatology team at [place]. Qualifiers: Anemia type: other cause Other causes of anemia: other cause, not classified Qualified Code(s): D64.89 - Other specified anemias (7) Portal vein thrombosis: Incidentally noted on CT. Appears to be also chronic in nature given multiple collaterals. Nonocclusive currently. Would not start anticoagulation given history of GI bleeding. Plan DVT prophylaxis: SCDs Full code Attestations 2 Medical Necessity Statement*: Less than 2 midnight stay is anticipated for paracentesis. Coding Level of Care Code Acute Code for Chg Fwd Moderate MDM includes number and complexity of problems actively addressed during encounter, amount and/or complexity of data reviewed/ordered and described risk of complication, morbidity or mortality of management as documented Diagnoses Tense ascites R18.8 Ascites due to alcoholic cirrhosis K70.31 Liver disease, chronic, due to alcohol K70.9 Alcoholism, chronic F10.20 Hypokalemia E87.6 Anemia due to other cause, not classified D64.89 Anemia type: other cause Other causes of anemia: other cause, not classified Portal vein thrombosis I81
[2023-08-05] MEDS: lactulose oral liq 20 gm/30 mL UDC 10 GM PO (00:44)
[2023-08-05 04:00] VITALS: BP 118/72; PULSE 106; RESP 16; TEMP 36.5; O2SAT 95
[2023-08-05 05:18] LABS: Basophils # 0.1 10^3/uL (0.0-0.1); Basophils % 1.1 %; Eosinophils # 0.2 10^3/uL (0.0-0.8); Eosinophils % 3.6 %; Hematocrit 24.9 % (37-53); Lymphocytes # 0.4 10^3/uL (0.8-4.8); Lymphocytes % 7.4 %; Mean Corpuscular HGB Conc 30.9 g/dL (30-55); Mean Corpuscular Hemoglobin 28.9 pg (27-33); Mean Corpuscular Volume 93.6 fl (82-101); Mean Platelet Volume 10.2 fL (7.4-10.4); Monocytes # 0.7 10^3/uL (0.2-0.9); Monocytes % 13.9 %; Neutrophils # 3.85 10^3/uL (1.8-7.7); Neutrophils % 73.4 %; Nucleated Red Blood Cells % 0 %; Platelet Count 141 10^3/cmm (157-399); Red Blood Count 2.66 10^6/uL (3.85-5.65); White Blood Count 5.25 10^3/uL (3.29-11.43)
[2023-08-05 05:42] LABS: Alanine Aminotransferase 23 U/L (0-41); Albumin Level 2.2 g/dL (3.5-5.2); Alkaline Phosphatase 479 U/L (40-130); Anion Gap 14.8 (5-19); Aspartate Amino Transferase 60 U/L (0-40); Blood Urea Nitrogen 8 mg/dL (6-20); Calcium 6.9 mg/dL (8.5-10.5); Carbon Dioxide 21 mmol/L (22-29); Chloride 100 mmol/L (98-107); Creatinine Clr Calc Pharmacy 117.0378; Globulin 3.4 g/dL (1.3-4.6); Glomerular Filtration Rate 88.6 mL/min (90-130); Glucose 148 mg/dL (65-115); Osmolality Calculated 277 mOsm/kg (285-295); Sodium 133 mmol/L (136-145); Total Protein 5.6 g/dL (6.6-8.7)
[2023-08-05 05:52] LABS: Potassium 2.8 mmol/L (3.5-5.1); Total Bilirubin 8.6 mg/dL (0.15-1.2)
[2023-08-05 06:00] VITALS: BMI 35.6
[2023-08-05 07:16] VITALS: BP 122/78; RESP 17; TEMP 36.9; O2SAT 92
[2023-08-05 09:24] LABS: Apprearance, Body Fluid CLEAR; Color, Body Fluid YELLOW; Cyto Order Verification No Order
[2023-08-05 09:29] LABS: Fluid Laterality PARA ACSITES
[2023-08-05 09:32] LABS: Body Fluid Polynuclear #Cells 0.014; Body Fluid WBC 100 /uL; Monocytes # Body Fluid 0.086; RBC, Body Fluid 0 10^3/uL
[2023-08-05] MEDS: FUROsemide 20 mg Tablet 40 MG PO (09:46)
[2023-08-05] MEDS: thiamine 100 mg Tablet PO (09:46)
[2023-08-05] MEDS: folic acid 1 mg Tablet PO (09:46)
[2023-08-05] MEDS: pantoprazole DR 40 mg Tablet PO (09:46)
[2023-08-05] MEDS: albumin 12.5 GM/250 ML VIAL IV (09:46)
[2023-08-05] MEDS: ferrous sulfate EC 325 mg Tablet PO (09:46)
[2023-08-05] MEDS: spironolactone 25 mg Tablet 50 MG PO (09:46)
[2023-08-05 10:39] LABS: PATH Referral YES
[2023-08-05 10:40] LABS: Albumin Body Fluid 0.3 g/dL; Total Protein Body Fluid 0.6 g/dL
--- NOTE | 2023-08-05 10:44 | PM.DCS ---
Discharge Providers Date of Admission: 08/04/23 21:20 Date of Discharge: August 05, 2023 Attending Provider at Admission: Rigoberto Basurto MD Attending Provider at Discharge: Yeison Chapa MD Primary Care Provider: Rosa M Morrison MD Diagnoses at Discharge Discharge Diagnosis (1) Tense ascites: Status: Acute (2) Ascites due to alcoholic cirrhosis: Status: Acute (3) Liver disease, chronic, due to alcohol: Status: Chronic Permanent problem details: He has had Hep B, C, and HIV serology in 2020 which were negative. (4) Alcoholism, chronic: Status: Acute (5) Hypokalemia: Status: Acute (6) Anemia: Status: Acute Qualifiers: Anemia type: other cause Other causes of anemia: other cause, not classified Qualified Code(s): D64.89 - Other specified anemias (7) Portal vein thrombosis: Status: Acute Reason for Visit Reason for Visit: swelling, chest pressure sob Hospital Course Hospital Course 52 male with history of active alcohol consumption, alcohol cirrhosis, decompensated liver cirrhosis with recurrent ascites, MELD score is 24, he is not a TIPS candidate, he does see a laydown machine operator in [place], patient has denied peritoneal drain I do suspect and anticipate that this patient will come back to the hospital for recurrent ascites, he is not going to stop drinking alcohol, he is keeping himself full code, was present in the room when I discussed TIPS procedure, high MELD score, peritoneal drain and CODE STATUS. Patient does not want to stay in the hospital after paracentesis, I will give him potassium supplementation, albumin and then discharge after therapeutic paracentesis. Patient does have Lasix, spironolactone thiamine folic acid lactulose and rifaximin at home, at this point he has capacity to make decision for himself Physical Exam Narrative: No active signs of confusion No asterixis Distended abdomen nontender Lower extremity mild edema Discharge Data Studies Completed and Pending Completed Studies During Hospitalization Category Date Time Status CT abdomen pelvis w con* [id number] Stat Cat Scan 08/04/23 20:19 Completed XR chest 1V portable [id number] Stat Exams 08/04/23 18:55 Completed Pending at discharge Category Date Time Status Anaerobic Culture Routine Lab 08/05/23 09:00 Received Body Fluid Culture & GS Routine Lab 08/05/23 09:00 [place] [id number] Stat Ultrasound 08/05/23 21:03 Taken Radiology Impressions Chest X-Ray 08/04/23 18:55 IMPRESSION: 1. No acute cardiopulmonary abnormality. Abdomen/Pelvis CT 08/04/23 20:19 IMPRESSION: 1. Decompensated hepatic cirrhosis with moderate-large ascites, splenomegaly and gastroesophageal varices. 2. Nonocclusive thrombus in the right portal vein. There may be chronic thrombosis of the left portal vein branches as well given the observed collateralization. Consider follow-up nonemergent MRI of the abdomen with/without contrast. 3. Horseshoe kidney. 4. Fluid containing periumbilical ventral abdominal hernia. Laboratory Results WBC 5.25 10^3/uL (3.29-11.43) 08/05/23 05:01 RBC 2.66 10^6/uL (3.85-5.65) L 08/05/23 05:01 Hgb 7.70 g/dL (11.27-16.99) L 08/05/23 05:01 Hct 24.9 % (37-53) L 08/05/23 05:01 MCV 93.6 fl (82-101) 08/05/23 05:01 MCH 28.9 pg (27-33) 08/05/23 05:01 MCHC 30.9 g/dL (30-55) 08/05/23 05:01 RDW 22.0 % (12.1-15.1) H 08/05/23 05:01 Plt Count 141 10^3/cmm (157-399) L 08/05/23 05:01 MPV 10.2 fL (7.4-10.4) 08/05/23 05:01 Neut % (Auto) 73.4 % 08/05/23 05:01 Lymph % (Auto) 7.4 % 08/05/23 05:01 [place] % (Auto) 13.9 % 08/05/23 05:01 Eos % (Auto) 3.6 % 08/05/23 05:01 Baso % (Auto) 1.1 % 08/05/23 05:01 Neut # (Auto) 3.85 10^3/uL (1.8-7.7) 08/05/23 05:01 Lymph # (Auto) 0.4 10^3/uL (0.8-4.8) L 08/05/23 05:01 [place] # (Auto) 0.7 10^3/uL (0.2-0.9) 08/05/23 05:01 Eos # (Auto) 0.2 10^3/uL (0.0-0.8) 08/05/23 05:01 Baso # (Auto) 0.1 10^3/uL (0.0-0.1) 08/05/23 05:01 Nucleated RBC % (auto) 0 % 08/05/23 05:01 Nucleated RBCs # 0.0 /100WBC 08/05/23 05:01 Differential Comment Yes 08/05/23 09:00 PT 23.40 SECONDS (12.1-14.9) H 08/04/23 18:58 INR 2.00 (0.8-1.2) H 08/04/23 18:58 APTT 42.2 SECONDS (23.9-36.7) H 08/04/23 18:58 Sodium 133 mmol/L (136-145) L 08/05/23 05:01 Potassium 2.8 mmol/L (3.5-5.1) L* 08/05/23 05:01 Chloride 100 mmol/L (98-107) 08/05/23 05:01 Carbon Dioxide 21 mmol/L (22-29) L 08/05/23 05:01 Anion Gap 14.8 (5-19) 08/05/23 05:01 BUN 8 mg/dL (6-20) 08/05/23 05:01 Creatinine 0.9 mg/dL (0.7-1.2) 08/05/23 05:01 GFR Calculation 88.6 mL/min (90-130) L 08/05/23 05:01 Glucose 148 mg/dL (65-115) H 08/05/23 05:01 Calculated Osmolality 277 mOsm/kg (285-295) L 08/05/23 05:01 Calcium 6.9 mg/dL (8.5-10.5) L 08/05/23 05:01 Magnesium 1.5 mg/dL (1.7-2.3) L 08/04/23 18:58 Total Bilirubin 8.6 mg/dL (0.15-1.2) H* 08/05/23 05:01 AST 60 U/L (0-40) H 08/05/23 05:01 ALT 23 U/L (0-41) 08/05/23 05:01 Alkaline Phosphatase 479 U/L (40-130) H 08/05/23 05:01 Ammonia 74 umol/L (16-60) H 08/04/23 19:20 Total Protein 5.6 g/dL (6.6-8.7) L 08/05/23 05:01 Albumin 2.2 g/dL (3.5-5.2) L 08/05/23 05:01 Globulin 3.4 g/dL (1.3-4.6) 08/05/23 05:01 Lipase 89 U/L (13-60) H 08/04/23 18:58 Urine Color Yellow (Yellow) 08/04/23 19:35 Urine Appearance Clear (CLEAR) 08/04/23 19:35 Urine pH 5 (5-7) 08/04/23 19:35 Ur Specific [place] 1.015 (1.005-1.030) 08/04/23 19:35 Urine Protein Trace (Negative) 08/04/23 19:35 Urine Glucose (UA) Norm (Normal) 08/04/23 19:35 Urine Ketones Negative (Negative) 08/04/23 19:35 Urine Blood Neg (Negative) 08/04/23 19:35 Urine Nitrate Negative (Negative) 08/04/23 19:35 Urine Bilirubin 2+ (Negative) H 08/04/23 19:35 Urine Urobilinogen 4 mg/dL (Negative) H 08/04/23 19:35 Ur Leukocyte Esterase Negative (Negative) 08/04/23 19:35 Urine RBC 0-4 /hpf (0-2) H 08/04/23 19:35 Urine WBC 0-4 /hpf (0-5) H 08/04/23 19:35 Ur Squamous Epith Cells 0-4 /hpf (0-5) H 08/04/23 19:35 Amorphous Sediment Not Reportable 08/04/23 19:35 Urine Bacteria Trace /hpf (NONE) 08/04/23 19:35 Hyaline Casts 5-10 /lpf H 08/04/23 19:35 Urine Mucus 1+ /hpf 08/04/23 19:35 Fluid Color Yellow 08/05/23 09:00 Fluid Appearance Clear 08/05/23 09:00 Fluid WBC 100 /uL 08/05/23 09:00 Fluid RBC 0 10^3/uL 08/05/23 09:00 Fld Polynuclear WBCs # 0.014 08/05/23 09:00 Fld Polynuclear WBCs % 14.000 % 08/05/23 09:00 Fl Mononucl WBCs #(Auto) 0.086 08/05/23 09:00 Fl Mononuclear % Auto 86.000 % 08/05/23 09:00 Fld Crystal Laterality Para acsites 08/05/23 09:00 Fluid Total Protein 0.6 g/dL 08/05/23 09:00 Fluid Albumin 0.3 g/dL 08/05/23 09:00 Urine Opiates Screen Negative ng/mL (Negative) 08/04/23 19:35 Ur Barbiturates Screen Negative ng/mL (Negative) 08/04/23 19:35 Ur Phencyclidine Scrn Negative ng/mL (Negative) 08/04/23 19:35 Ur Amphetamines Screen Negative ng/mL (Negative) 08/04/23 19:35 U Benzodiazepines Scrn Negative ng/mL (Negative) 08/04/23 19:35 Urine Cocaine Screen Negative ng/mL (Negative) 08/04/23 19:35 U Marijuana (THC) Screen Negative ng/mL (Negative) 08/04/23 19:35 Ethyl Alcohol 183 mg/dL (0-10) H 08/04/23 18:58 Vitals Last Vital Signs Temp 98.4 F 08/05/23 07:16 Pulse 106 H 08/05/23 04:00 Resp 17 08/05/23 07:16 BP 122/78 08/05/23 07:16 Pulse Ox 92 08/05/23 07:16 O2 Del Method Room Air 08/05/23 07:16 Discharge Plan Discharge Patient Disposition: Home Condition: Stable Prescriptions: New lactulose 10 gram/15 mL solution 20 g PO Q8H 30 Days Qty: 2700 3RF Rx Instructions: until desired laxative effect Continued cbzpprtraiyjsmr-qncdoqzzh-KH [Bromfed DM] 2-30-10 mg/5 mL syrup 5 ml PO Q6H PRN (Reason: cold symptoms) Qty: 118 0RF simethicone [Gas-X Extra Strength] 125 mg Capsule 125 - 250 mg PO DAILY PRN (Reason: Abdominal Distention) ferrous sulfate [iron] 325 mg (65 mg iron) Tablet 325 mg PO DAILY PRN (Reason: unknown) cyanocobalamin (vitamin B-12) [Vitamin B-12] 5,000 mcg Tablet, Sublingual 5,000 mcg SUBLINGUAL DAILY Probiotic Blend 2 billion cell-50 mg Capsule 1 cap PO DAILY Rx Instructions: give with meal/snack calcium 26-vit D3-magnesium 15 167 mg calcium- 1.67 mcg-83 mg Capsule 1 cap PO DAILY Rx Instructions: only takes 2-3 times a week oxycodone 5 mg tablet 5 mg PO Q6H PRN (Reason: pain) Qty: 20 0RF Hold Instructions: Resume on 07/13/23. pantoprazole 40 mg Tablet,Delayed Release (Dr/Ec) 40 mg PO PRN multivitamin Tablet 1 tab PO .THREE TIMES A WEEK Qty: 90 0RF furosemide 20 mg tablet 40 mg PO DAILY PRN (Reason: swelling) 90 Days Qty: 120 1RF spironolactone 50 mg tablet 50 mg PO DAILY Qty: 60 2RF folic acid 1 mg Tablet 1 mg PO PRN Qty: 60 0RF Changed potassium chloride 10 mEq tablet extended release 20 meq PO BID Qty: 60 2RF Discharge Orders: Discharge Order (Routine); Ordered 08/05/23 Ordered By: Yeison Chapa Other Ambulatory Orders: US paracentesis abd w [id number] (Routine) Timeframe: 3 Weeks [facility] Location: Radiology Ordered By: Yeison Chapa Referrals: Rosa M Morrison MD [Primary Care Provider] - 1-3 days Patient Instructions: Cirrhosis of the Liver (DC), Abuse of Alcohol (ED), TIPS (Transjugular Intrahepatic Portosystemic Shunt) (DC), TIPS (Transjugular Intrahepatic Portosystemic Shunt) (IP), TIPS (Transjugular Intrahepatic Portosystemic Shunt) (PRE), Opioid Safety Discharge Attestations Time Spent in Discharge Care*: greater than 30 min Status at Discharge: Cognitive status at discharge: cognitively intact, Behavioral status at discharge: cooperative, Quality Metrics Clinical Quality Measures [ No reported AMI, CVA or VTE this stay] Coding Level of Care Code Acute Code for Chg Fwd Diagnoses Tense ascites R18.8 Ascites due to alcoholic cirrhosis K70.31 Liver disease, chronic, due to alcohol K70.9 Alcoholism, chronic F10.20 Hypokalemia E87.6 Anemia due to other cause, not classified D64.89 Anemia type: other cause Other causes of anemia: other cause, not classified Portal vein thrombosis I81
[2023-08-05 11:24] VITALS: BP 101/63; PULSE 103; RESP 16; TEMP 36.8; O2SAT 94
--- NOTE | 2023-08-05 11:55 | PC.NURSE ---
patient and verbalized understanding of discharge instructions, home medication, and follow up appointments. education provided to patient and about TIPS procedure, which patient may need in the future, per Dr. Chapa.
[2023-08-05 12:07] VITALS: BP 101/63; PULSE 103; RESP 16; TEMP 36.8; O2SAT 94
--- NOTE | 2023-08-05 21:03 | US_ITS ---
WS: [id number] ULTRASOUND-GUIDED THERAPEUTIC AND DIAGNOSTIC PARACENTESIS Procedure, risks, and complications have been explained to the patient. Consent is obtained. Utilizing aseptic technique and 1% buffered lidocaine, a small dermatome was made through which a 5 F rench Yueh catheter was inserted. Approximately 6500 ml of clear peritoneal fluid was obtained witho ut difficulty. No complications encountered. Peritoneal fluid collected for analysis as requested. IMPRESSION: Uncomplicated paracentesis yielding 6500 ml of peritoneal fluid.
== END 2023-08-05 12:08 | disposition home or self-care (01) ==
LOC: ER 21:06 → MEDSURG 21:20
PROVIDERS: Student in an Organized Health Care Education/Training Program; Admitting Provider Student in an Organized Health Care Education/Training Program; Emergency Provider Emergency Medicine; PCP Family Medicine; Visit Provider Internal Medicine
DX: K70.31 Alcoholic cirrhosis of liver with ascites (principal); K70.9 Alcoholic liver disease, unspecified; F10.20 Alcohol dependence, uncomplicated; E87.6 Hypokalemia; D64.89 Other specified anemias; I81 Portal vein thrombosis; E11.9 Type 2 diabetes mellitus without complications; I10 Essential (primary) hypertension; Z87.891 Personal history of nicotine dependence
CPT/HCPCS: 36415; 49083; 71045; 74177; 80053; 80306; 80307; 80503; 81001; 82042; 82140; 83690; 83735; 84157; 85025; 85610; 85730; 87070; 87075; 87205; 89050; 93005; 96365; 96367; 96375; 99285; G0378; J3475; J3480; J3490; P9045; Q9967

== ENCOUNTER → 2023-08-10 11:41 | Outpatient (BNVA) | payer BC, SELFPAY | PROVIDERS: PCP Family Medicine; Visit Provider Family Medicine | DX: I50.9 Heart failure, unspecified (principal); F10.20 Alcohol dependence, uncomplicated; I10 Essential (primary) hypertension | CPT/HCPCS: 80048; 83735; 85025 ==

== ENCOUNTER → 2023-09-20 11:47 | Outpatient (BNVA) | payer BC, SELFPAY | PROVIDERS: PCP Family Medicine; Visit Provider Family Medicine | DX: F10.20 Alcohol dependence, uncomplicated | CPT/HCPCS: 80053; 83735; 85025 ==